=== PATIENT | female | born 1945 | race Caucasian/White ===

== ENCOUNTER 2020-10-08 13:50 | Inpatient (IN) ==
--- NOTE | 2020-10-08 14:13 | DR.GENAD ---
HPI Time Seen Time Seen by Provider: 10/08/20 14:13 PE Vital Signs Vitals: Temperature 98.6 F Pulse Rate [Left Radial] 92 Pulse Rate 91 Respiratory Rate 23 Blood Pressure [Left Arm] 100/73 Blood Pressure 100/73 O2 Sat by Pulse Oximetry 96 ROR Labs Reviewed Result Diagrams: 10/08/20 14:40 10/08/20 14:40 Laboratory: 10/08/20 15:03 Sacral Wound Gram Stain - Final WBC 19.3 X10^3/uL (3.6-10.0) H 10/08/20 14:40 RBC 4.96 X10^6/uL (3.5-5.4) 10/08/20 14:40 Hgb 13.4 g/dL (12.0-16.0) 10/08/20 14:40 Hct 41.3 % (36.0-47.0) 10/08/20 14:40 MCV 83.4 fL (80.0-100.0) 10/08/20 14:40 MCH 27.0 pg (27.0-34.0) 10/08/20 14:40 MCHC 32.4 g/dL (33.0-35.0) L 10/08/20 14:40 RDW 18.3 % (11.6-16.5) H 10/08/20 14:40 Plt Count 221 X10^3/uL (150.0-450.0) 10/08/20 14:40 MPV 7.5 fL (7.4-11.0) 10/08/20 14:40 Neut % (Auto) 89.6 % (42.0-75.0) H 10/08/20 14:40 Lymph % (Auto) 4.7 % (21.0-51.0) L 10/08/20 14:40 [place] % (Auto) 5.4 % (0.0-13.0) 10/08/20 14:40 Eos % (Auto) 0.1 % (0.9-2.9) L 10/08/20 14:40 Baso % (Auto) 0.2 % (0.2-1.0) 10/08/20 14:40 Neut # (Auto) 17.3 x10^3/uL (2.2-4.8) H 10/08/20 14:40 Lymph # (Auto) 0.9 X10^3/uL (1.3-2.9) L 10/08/20 14:40 [place] # (Auto) 1.0 x10^3/uL (0.3-0.8) H 10/08/20 14:40 Eos # (Auto) 0.0 x10^3/uL (0.0-0.2) 10/08/20 14:40 Baso # (Auto) 0.0 X10^3/uL (0.0-0.1) 10/08/20 14:40 Absolute Nucleated RBC 0.0 /100WBC 10/08/20 14:40 PT 25.8 SECONDS (11.8-14.3) 10/08/20 14:40 INR Target Range - 10/08/20 14:40 INR 2.49 (0.8-1.3) H 10/08/20 14:40 APTT 31.9 SECONDS (22.9-36.5) 10/08/20 14:40 PTT Comment - 10/08/20 14:40 Sodium 145 mmol/L (136-145) 10/08/20 14:40 Corrected Sodium TNP 10/08/20 14:40 Potassium 4.3 mmol/L (3.5-5.1) 10/08/20 14:40 Chloride 109 mmol/L (98-107) H 10/08/20 14:40 Carbon Dioxide 28.4 mmol/L (21-32) 10/08/20 14:40 BUN 38 mg/dL (7-18) H 10/08/20 14:40 Creatinine 0.97 mg/dL (0.55-1.02) 10/08/20 14:40 Est GFR (MDRD) Af Amer > 60 (>60) 10/08/20 14:40 Est GFR (MDRD) Non-Af 60 (>60) 10/08/20 14:40 Glucose 52 mg/dL (65-99) L 10/08/20 14:40 Lactic Acid 2.9 mmol/L (0.4-2.0) H 10/08/20 14:40 Calcium 9.0 mg/dL (8.5-10.1) 10/08/20 14:40 Corrected Calcium 11.0 mg/dL (8.5-10.1) H 10/08/20 14:40 Total Bilirubin 3.50 mg/dL (0.2-1.0) H 10/08/20 14:40 AST 92 Units/L (15-37) H 10/08/20 14:40 ALT 29 Units/L (12-78) 10/08/20 14:40 Alkaline Phosphatase 626 Units/L (46-116) H 10/08/20 14:40 Creatine Kinase 82 Units/L (26-192) 10/08/20 14:40 CK-MB (CK-2) 2.6 ng/mL (0-4.0) 10/08/20 14:40 CK/CKMB % Calc 3.2 % (<4) 10/08/20 14:40 Troponin I < 0.02 ng/mL (0-1.5) 10/08/20 14:40 Total Protein 6.5 g/dL (6.4-8.2) 10/08/20 14:40 Albumin 1.5 g/dL (3.4-5.0) L 10/08/20 14:40 Globulin 5.0 g/dL (2.5-4.5) H 10/08/20 14:40 Albumin/Globulin Ratio 0.3 Ratio (1.1-2.1) L 10/08/20 14:40 SARS-CoV-2 (PCR) Negative (NEGATIVE) 10/08/20 18:04 Influenza Type A (PCR) Negative (NEGATIVE) 10/08/20 18:04 Influenza Type B (PCR) Negative (NEGATIVE) 10/08/20 18:04 RSV (PCR) Negative (NEGATIVE) 10/08/20 18:04 Opioid Opioid Risk Tool Total: 0 Total Score Risk Category: Low Risk Copyright: Bernard LR predicting aberrant behaviors
[2020-10-08] MEDS ORDERED: NS 1000 ML 1,000 ML ONE ×2 (14:32→18:13)
--- NOTE | 2020-10-08 15:03 | RAD ---
HISTORYSOBSTUDYCHEST, 1 VIEWCOMPARISONNone availableTECHNIQUEChest radiographic imaging, AP portable projection, 1 imageFINDINGSNo cardiomegaly.No focal airspace disease.Moderate bilateral pleural effusions.No pneumothorax.No acute osseous abnormality.IMPRESSIONModerate bilateral pleural effusions, otherwise, unremarkable exam.Electronically signed by: Ousmane Rodrigues (Oct 08, 2020 15:00:36)
[2020-10-08 15:06] LABS: BASOPHILS % (AUTO) 0.2 % (0.2-1.0); EOSINOPHILS % (AUTO) 0.1 % (0.9-2.9); HEMATOCRIT 41.3 % (36.0-47.0); HEMOGLOBIN 13.4 g/dL (12.0-16.0); LYMPHOCYTES # (AUTO) 0.9 X10^3/uL (1.3-2.9); LYMPHOCYTES % (AUTO) 4.7 % (21.0-51.0); MEAN CORPUSCULAR HGB CONC 32.4 g/dL (33.0-35.0); MEAN CORPUSCULAR VOLUME 83.4 fL (80.0-100.0); MEAN PLATELET VOLUME 7.5 fL (7.4-11.0); MONOCYTES % (AUTO) 5.4 % (0.0-13.0); NEUTROPHILS # (AUTO) 17.3 x10^3/uL (2.2-4.8); NEUTROPHILS % (AUTO) 89.6 % (42.0-75.0); PLATELET COUNT 221 X10^3/uL (150.0-450.0); RED BLOOD COUNT 4.96 X10^6/uL (3.5-5.4); RED CELL DISTRIBUTION WIDTH 18.3 % (11.6-16.5); WHITE BLOOD COUNT 19.3 X10^3/uL (3.6-10.0)
[2020-10-08 15:23] LABS: LACTIC ACID 2.9 mmol/L (0.4-2.0)
[2020-10-08 15:27] LABS: ALANINE AMINOTRANSFERASE 29 Units/L (12-78); ALBUMIN 1.5 g/dL (3.4-5.0); ALKALINE PHOSPHATASE 626 Units/L (46-116); ASPARTATE AMINO TRANSFERASE 92 Units/L (15-37); BLOOD UREA NITROGEN 38 mg/dL (7-18); CARBON DIOXIDE 28.4 mmol/L (21-32); CHLORIDE 109 mmol/L (98-107); CKMB % 3.2 % (<4); CREATINE KINASE 82 Units/L (26-192); CREATINE KINASE MB 2.6 ng/mL (0-4.0); CREATININE 0.97 mg/dL (0.55-1.02); SODIUM 145 mmol/L (136-145); TOTAL PROTEIN 6.5 g/dL (6.4-8.2); TROPONIN I < 0.02 ng/mL (0-1.5); eGFR NON BLACK RACES 60 (>60)
[2020-10-08] MEDS ORDERED: NS 1000 ML 1,000 ML IV ONE (15:34)
[2020-10-08] MEDS ORDERED: ZOSYN VIAL 3.375 GRAMS 3.375 G in NS 100 ML IV + SPIKE MINIBAG* 100 ML IV ONE (18:00)
[2020-10-08] MEDS ORDERED: ZOSYN VIAL 3.375 GRAMS IV ONE (18:06)
[2020-10-08] MEDS ORDERED: NS 100 ML IV + SPIKE MINIBAG* 100 ML IV ONE (18:07)
[2020-10-08] MEDS: NS 1000 ML 1,000 ML IV SCH (18:24)
[2020-10-08] MEDS ORDERED: MORPHINE SULFATE INJ 4 MG IVP PRN (18:47)
[2020-10-08] MEDS ORDERED: ZOFRAN TAB 4 MG PO PRN (18:47)
[2020-10-08] MEDS ORDERED: VANCOMYCIN IV *PREMIX 1 G/200 ML BAG 1 G/200 ML PIGGYBACK IV SCH (18:54)
[2020-10-08 19:43] VITALS: BMI 23.3
[2020-10-08] MEDS ORDERED: D50W ABBOJECT SYR ONE (20:04)
[2020-10-08] MEDS ORDERED: D50W ABBOJECT SYR IV ONE (20:05)
[2020-10-08] MEDS: VENTOLIN or PROAIR HFA IN SCH (20:45)
[2020-10-08] MEDS: CORDARONE TAB 200 MG PO SCH (20:53)
[2020-10-08] MEDS: PREDNISONE TAB 20 MG PO SCH (20:53)
[2020-10-08] MEDS ORDERED: VANCOMYCIN IV *PREMIX 750 mg/150 ML BAG 750 MG/150 ML PIGGYBACK IV SCH (21:00)
[2020-10-08] MEDS ORDERED: ELIQUIS PO SCH (21:00)
[2020-10-08] MEDS: ALPHAGAN-P OPHTH 1 DOSE EACHEYE SCH (21:10)
[2020-10-09 04:56] LABS: BASOPHILS % (AUTO) 0.2 % (0.2-1.0); HEMATOCRIT 39.5 % (36.0-47.0); HEMOGLOBIN 12.8 g/dL (12.0-16.0); LYMPHOCYTES # (AUTO) 0.3 X10^3/uL (1.3-2.9); LYMPHOCYTES % (AUTO) 1.8 % (21.0-51.0); MEAN CORPUSCULAR HEMOGLOBIN 26.9 pg (27.0-34.0); MEAN CORPUSCULAR HGB CONC 32.3 g/dL (33.0-35.0); MEAN CORPUSCULAR VOLUME 83.5 fL (80.0-100.0); MEAN PLATELET VOLUME 7.5 fL (7.4-11.0); MONOCYTES # (AUTO) 0.6 x10^3/uL (0.3-0.8); MONOCYTES % (AUTO) 3.3 % (0.0-13.0); NEUTROPHILS # (AUTO) 16.6 x10^3/uL (2.2-4.8); NEUTROPHILS % (AUTO) 94.7 % (42.0-75.0); PLATELET COUNT 207 X10^3/uL (150.0-450.0); RED BLOOD COUNT 4.73 X10^6/uL (3.5-5.4); RED CELL DISTRIBUTION WIDTH 18.7 % (11.6-16.5); WHITE BLOOD COUNT 17.5 X10^3/uL (3.6-10.0)
[2020-10-09] MEDS: ZOSYN VIAL 3.375 GRAMS 3.375 G in NS 100 ML IV + SPIKE MINIBAG* 100 ML IV SCH ×3 (05:06→22:45)
[2020-10-09 05:09] LABS: ALANINE AMINOTRANSFERASE 28 Units/L (12-78); ALBUMIN 1.3 g/dL (3.4-5.0); ALKALINE PHOSPHATASE 654 Units/L (46-116); ASPARTATE AMINO TRANSFERASE 88 Units/L (15-37); BLOOD UREA NITROGEN 39 mg/dL (7-18); CALCIUM 8.5 mg/dL (8.5-10.1); CARBON DIOXIDE 29.3 mmol/L (21-32); CHLORIDE 109 mmol/L (98-107); CHOL/HDL RATIO 9.8 (0.0-5.0); CHOLESTEROL 128 mg/dL (0-200); COR CA(FOR HYPOALB) 10.7 mg/dL (8.5-10.1); COR NA(FOR HYPERGLY) 145 mmol/L (136-145); CREATININE 1.04 mg/dL (0.55-1.02); HDL CHOLESTEROL 13 mg/dL (40-60); SODIUM 144 mmol/L (136-145); TOTAL PROTEIN 5.9 g/dL (6.4-8.2); TRIGLYCERIDES 85 mg/dL (0-150); eGFR NON BLACK RACES 55 (>60)
[2020-10-09 05:10] LABS: LACTIC ACID 2.6 mmol/L (0.4-2.0)
[2020-10-09 05:32] LABS: BAND NEUTROPHILS % 5 % (0-10); PLATELET MORPHOLOGY COMMENT NORMAL (NORMAL)
[2020-10-09] MEDS: VANCOMYCIN IV *PREMIX 750 mg/150 ML BAG 750 MG/150 ML PIGGYBACK IV SCH ×2 (09:06→20:47)
[2020-10-09] MEDS: PREDNISONE TAB 20 MG PO SCH (09:07)
[2020-10-09] MEDS: CORDARONE TAB 200 MG PO SCH ×2 (09:07→20:53)
[2020-10-09] MEDS: NS 1000 ML 1,000 ML IV SCH (09:34)
[2020-10-09] MEDS: ALPHAGAN-P OPHTH 1 DOSE EACHEYE SCH ×2 (09:34→20:53)
--- NOTE | 2020-10-09 10:21 | RAD ---
HISTORYLBPSTUDYX-ray lumbar spine three viewsCOMPARISONNoneFINDINGSSlight thoracolumbar scoliosis. Minimal anterolisthesis of L4 on L5 is likely from arthritic facet changes. Moderate arthritic facet changes are seen throughout the lumbar spine, greatest at L5-S1. Mild endplate scalloping is seen of the superior endplates of L2-4 without anterior which deformity. Disc space narrowing is seen at T12-L1.IMPRESSIONMild scoliosis and moderate degenerative changes.Electronically signed by: Moises Acharya (Oct 09, 2020 10:18:52)
--- NOTE | 2020-10-09 10:25 | RAD ---
HISTORYLBPSTUDYSACRUM COCCYX x-ray three viewsCOMPARISONNoneFINDINGSNo abnormalities are seen with the SI joints. Tip of the coccyx is poorly visualized but appears slightly irregular. Nondisplaced fracture of the tip of the coccyx is not excluded. Osteomyelitis could possibly cause the appearance in the correct clinical setting. No suggestion of sacral fracture is seen. Phleboliths are seen in the pelvis. Prominent arthritic changes are seen in the right hip.IMPRESSIONProbable nondisplaced fracture of the tip of the coccyx. Less likely osteomyelitis changes cause this appearance.Electronically signed by: Moises Acharya (Oct 09, 2020 10:22:51)
[2020-10-09] MEDS ORDERED: MORPHINE SULFATE INJ 4 MG IVP PRN (10:46)
[2020-10-09] MEDS: VENTOLIN or PROAIR HFA IN SCH ×3 (11:45→17:15)
[2020-10-09] MEDS: ALBUMIN HUMAN 25%- 100 ML 100 ML IV SCH (12:00)
--- NOTE | 2020-10-09 12:44 | DR.H&P ---
H&P History & Physical for Day of: H&P Date: 10/09/20 Chief Complaint Chief Complaint: weakness, fall Allergies Allergies Allergy/AdvReac Type Severity Reaction Status Date / Time codeine Allergy Verified 10/08/20 19:50 History of Present Illness History of Present Illness: Ms. Abbott is a 75y/o female with a PMH of atrial fibrillation presented with generalized weakness, failure to thrive and immobility. Patient is currently living in a tent outside her house. She states she had a fall 2 weeks ago and since then has not walked. She reports pain in her lower back area. She has friends/family that have been helping with her ADLs. When she presented to the ER, she was found to be covered in urine and feces. She also did not eat anything for 2 days. Patient does not have a PCP. She sees a brand representative in [place]. She was found to have a sacral ulcer and some skin tears on admission. ER work up: - Labs: WBC 17.5 from 19 Hgb 12.8 BUN/Cr 39/1.04 Alk Phos 654 Lactic acid 2.6 from 2.9 AST 88 - INR 2.49 and now 2.55 - [id number], Resp panel neg - CXR: moderate bilateral pleural effusions, no infiltrate - Blood and wound cultures were collected and she was started on IV fluids, IV Vanc and Zosyn. Patient was also started on morphine for pain control but she refused. Patient is very adamant and particular about the medicines she wants to take. She also does not seem to be proactive about her condition and wants to just rest. During my exam, patient did not want to turn over for me to look at the sacral ulcer. She stated that the nurses will turn her over when they need to change the dressing. Plan: will order lumbar and sacrum XRs, continue gentle hydration. Continue IV antibiotics. Follow cultures. Resume home medications except Eliquis due to elevated INR. ECHO was ordered but patient refused as she had one done in August 2020 in [place]. Will obtain records. PT/OT as tolerated. Continue wound care. Monitor AM labs and imaging. Past Medical History Past Medical History: Coronary Artery Disease Additional Medical History: Atrial fibrillation Past Surgical History Surgical History: Other Social History Does patient currently use any type of tobacco product: No Have you used tobacco products in the last 12 months: No Type of Tobacco Use: None Does any household member use tobacco: No Alcohol Use: None Drug Use: None Prescription drug monitoring program results: PDMP reviewed and no concerns jan ntified Medications Home Medications: codeine Allergy (Verified 10/08/20 19:50) CONTINUE taking the following medications albuterol sulfate 1 inh INHALATION QID 10/08/20 [History] amiodarone 200 mg PO 2XW 10/08/20 [History] apixaban [Eliquis] 5 mg PO BID 10/08/20 [History] brimonidine [Alphagan P] 1 drp OPHTHALMIC (EYE) DAILY 10/08/20 [History] prednisone 20 mg PO QID 10/08/20 [History] Labs Result Diagrams: 10/09/20 04:29 10/09/20 04:29 Labs: 10/08/20 15:03 Sacral Wound Gram Stain - Final 10/08/20 15:03 Sacral Wound Culture - Preliminary Laboratory WBC 17.5 X10^3/uL (3.6-10.0) H 10/09/20 04:29 RBC 4.73 X10^6/uL (3.5-5.4) 10/09/20 04:29 Hgb 12.8 g/dL (12.0-16.0) 10/09/20 04:29 Hct 39.5 % (36.0-47.0) 10/09/20 04:29 MCV 83.5 fL (80.0-100.0) 10/09/20 04:29 MCH 26.9 pg (27.0-34.0) L 10/09/20 04:29 MCHC 32.3 g/dL (33.0-35.0) L 10/09/20 04:29 RDW 18.7 % (11.6-16.5) H 10/09/20 04:29 Plt Count 207 X10^3/uL (150.0-450.0) 10/09/20 04:29 Plt Count Comment Adequate (ADEQUATE) 10/09/20 04:29 MPV 7.5 fL (7.4-11.0) 10/09/20 04:29 Neut % (Auto) 94.7 % (42.0-75.0) H 10/09/20 04:29 Lymph % (Auto) 1.8 % (21.0-51.0) L 10/09/20 04:29 [place] % (Auto) 3.3 % (0.0-13.0) 10/09/20 04:29 Eos % (Auto) 0.0 % (0.9-2.9) L 10/09/20 04:29 Baso % (Auto) 0.2 % (0.2-1.0) 10/09/20 04:29 Neut # (Auto) 16.6 x10^3/uL (2.2-4.8) H 10/09/20 04:29 Lymph # (Auto) 0.3 X10^3/uL (1.3-2.9) L 10/09/20 04:29 [place] # (Auto) 0.6 x10^3/uL (0.3-0.8) 10/09/20 04:29 Eos # (Auto) 0.0 x10^3/uL (0.0-0.2) 10/09/20 04:29 Baso # (Auto) 0.0 X10^3/uL (0.0-0.1) 10/09/20 04:29 Absolute Nucleated RBC 0.0 /100WBC 10/09/20 04:29 Total Counted 100 10/09/20 04:29 Neutrophils % (Manual) 91 % (39-76) H 10/09/20 04:29 Band Neutrophils % 5 % (0-10) 10/09/20 04:29 Lymphocytes % (Manual) 1 % (13-43) L 10/09/20 04:29 Monocytes % (Manual) 3 % (4-9) L 10/09/20 04:29 Plt Morphology Comment Normal (NORMAL) 10/09/20 04:29 RBC Morphology Normal (NORMAL) 10/09/20 04:29 PT 26.2 SECONDS (11.8-14.3) 10/09/20 09:45 INR Target Range - 10/09/20 09:45 INR 2.55 (0.8-1.3) H 10/09/20 09:45 APTT 31.9 SECONDS (22.9-36.5) 10/08/20 14:40 PTT Comment - 10/08/20 14:40 Sodium 144 mmol/L (136-145) 10/09/20 04:29 Corrected Sodium 145 mmol/L (136-145) 10/09/20 04:29 Potassium 4.0 mmol/L (3.5-5.1) 10/09/20 04:29 Chloride 109 mmol/L (98-107) H 10/09/20 04:29 Carbon Dioxide 29.3 mmol/L (21-32) 10/09/20 04:29 BUN 39 mg/dL (7-18) H 10/09/20 04:29 Creatinine 1.04 mg/dL (0.55-1.02) H 10/09/20 04:29 Est GFR (MDRD) Af Amer > 60 (>60) 10/09/20 04:29 Est GFR (MDRD) Non-Af 55 (>60) L 10/09/20 04:29 Glucose 150 mg/dL (65-99) H 10/09/20 04:29 POC Glucose (mg/dL) 114 mg/dL (65-99) H 10/08/20 21:29 Lactic Acid 2.6 mmol/L (0.4-2.0) H 10/09/20 04:29 Calcium 8.5 mg/dL (8.5-10.1) 10/09/20 04:29 Corrected Calcium 10.7 mg/dL (8.5-10.1) H 10/09/20 04:29 Total Bilirubin 2.80 mg/dL (0.2-1.0) H 10/09/20 04:29 AST 88 Units/L (15-37) H 10/09/20 04:29 ALT 28 Units/L (12-78) 10/09/20 04:29 Alkaline Phosphatase 654 Units/L (46-116) H 10/09/20 04:29 Creatine Kinase 82 Units/L (26-192) 10/08/20 14:40 CK-MB (CK-2) 2.6 ng/mL (0-4.0) 10/08/20 14:40 CK/CKMB % Calc 3.2 % (<4) 10/08/20 14:40 Troponin I < 0.02 ng/mL (0-1.5) 10/08/20 14:40 Total Protein 5.9 g/dL (6.4-8.2) L 10/09/20 04:29 Albumin 1.3 g/dL (3.4-5.0) L 10/09/20 04:29 Globulin 4.6 g/dL (2.5-4.5) H 10/09/20 04:29 Albumin/Globulin Ratio 0.3 Ratio (1.1-2.1) L 10/09/20 04:29 Triglycerides 85 mg/dL (0-150) 10/09/20 04:29 Cholesterol 128 mg/dL (0-200) 10/09/20 04:29 LDL Cholesterol, Calc 98 mg/dL (0-100) 10/09/20 04:29 HDL Cholesterol 13 mg/dL (40-60) L 10/09/20 04:29 Cholesterol/HDL Ratio 9.8 (0.0-5.0) H 10/09/20 04:29 SARS-CoV-2 (PCR) Negative (NEGATIVE) 10/08/20 18:04 Influenza Type A (PCR) Negative (NEGATIVE) 10/08/20 18:04 Influenza Type B (PCR) Negative (NEGATIVE) 10/08/20 18:04 RSV (PCR) Negative (NEGATIVE) 10/08/20 18:04 Review of Systems Constitutional: Weakness and Malaise; denies Chills Eyes: No Symptoms Reported ENT: No Symptoms Reported Respiratory: No Symptoms Reported Cardiovascular: Edema Gastrointestinal: Diarrhea; denies Vomiting and Abdominal Pain Genitourinary: Incontinence Musculoskeletal: Back Pain Skin: Wound Neurological: No Symptoms Reported Physical Exam Vital Signs: Temperature 97.7 F Pulse Rate [Left Radial] 68 Pulse Rate 103 Respiratory Rate 20 Blood Pressure [Left Arm] 110/68 Blood Pressure 100/73 O2 Sat by Pulse Oximetry 99 Oriented: Normal Eyes: Normal Ear: Normal Nose: Normal Throat: Dry Respiratory: Diminished Throughout Cardiovascular: Normal and Edema Auscultation: Bowel Sounds: Normal Palpation: Normal Tenderness: Normal Skin: Decreased Turgur Musculoskeletal: Back:Lumbar, Back:Paraspinous and Pelvis Psychiatric: Normal Mood Description: Calm Affect: Normal Speech Pattern: Clear and Appropriate Assessment/Plan (1) Sepsis: Qualifiers: Sepsis acute organ dysfunction status: without acute organ dysfunction Sepsis type: sepsis due to unspecified organism Qualified Code(s): A41.9 - Sepsis, unspecified organism Status: Acute (2) Sacral decubitus ulcer: Qualifiers: Pressure injury stage: unspecified pressure injury stage Qualified Code(s): L89.159 - Pressure ulcer of sacral region, unspecified stage Status: Acute (3) Generalized weakness: Status: Acute (4) Failure to thrive: Qualifiers: Failure to thrive age range: in adult Qualified Code(s): R62.7 - Adult failure to thrive Status: Acute (5) Protein malnutrition: Status: Acute (6) Fall: Qualifiers: Encounter type: initial encounter Qualified Code(s): W19.XXXA - Unspecified fall, initial encounter Status: Acute (7) Poor hygiene: Status: Acute (8) Immobility: Status: Acute (9) Chronic back pain: Qualifiers: Back pain laterality: unspecified Back pain location: back pain in unspecified location Qualified Code(s): M54.9 - Dorsalgia, unspecified; G89.29 - Other chronic pain Status: Acute (10) Atrial fibrillation: Qualifiers: Atrial fibrillation type: unspecified chronic Qualified Code(s): I48.20 - Chronic atrial fibrillation, unspecified Status: Acute Review H&P Reviewed: Yes Patient was examined?: Yes
[2020-10-10] MEDS: ALPHAGAN-P OPHTH 1 DOSE EACHEYE SCH ×3 (01:27→23:53)
[2020-10-10] MEDS: NS 1000 ML 1,000 ML IV SCH (04:09)
[2020-10-10 05:25] LABS: LACTIC ACID 1.5 mmol/L (0.4-2.0)
[2020-10-10 05:27] LABS: BASOPHILS % (AUTO) 0.2 % (0.2-1.0); EOSINOPHILS # (AUTO) 0.1 x10^3/uL (0.0-0.2); EOSINOPHILS % (AUTO) 0.5 % (0.9-2.9); HEMATOCRIT 34.9 % (36.0-47.0); HEMOGLOBIN 11.3 g/dL (12.0-16.0); LYMPHOCYTES # (AUTO) 0.9 X10^3/uL (1.3-2.9); MEAN CORPUSCULAR HEMOGLOBIN 27.1 pg (27.0-34.0); MEAN CORPUSCULAR HGB CONC 32.4 g/dL (33.0-35.0); MEAN CORPUSCULAR VOLUME 83.7 fL (80.0-100.0); MEAN PLATELET VOLUME 7.3 fL (7.4-11.0); MONOCYTES # (AUTO) 1.1 x10^3/uL (0.3-0.8); MONOCYTES % (AUTO) 7.6 % (0.0-13.0); NEUTROPHILS # (AUTO) 12.9 x10^3/uL (2.2-4.8); NEUTROPHILS % (AUTO) 85.7 % (42.0-75.0); PLATELET COUNT 161 X10^3/uL (150.0-450.0); RED BLOOD COUNT 4.17 X10^6/uL (3.5-5.4); RED CELL DISTRIBUTION WIDTH 18.4 % (11.6-16.5); WHITE BLOOD COUNT 15.1 X10^3/uL (3.6-10.0)
[2020-10-10] MEDS: ZOSYN VIAL 3.375 GRAMS 3.375 G in NS 100 ML IV + SPIKE MINIBAG* 100 ML IV SCH ×3 (05:46→23:53)
[2020-10-10 05:55] LABS: ALANINE AMINOTRANSFERASE 21 Units/L (12-78); ALBUMIN 1.7 g/dL (3.4-5.0); ALKALINE PHOSPHATASE 478 Units/L (46-116); ASPARTATE AMINO TRANSFERASE 67 Units/L (15-37); BLOOD UREA NITROGEN 35 mg/dL (7-18); CALCIUM 8.1 mg/dL (8.5-10.1); CARBON DIOXIDE 30.3 mmol/L (21-32); CHLORIDE 112 mmol/L (98-107); COR CA(FOR HYPOALB) 9.9 mg/dL (8.5-10.1); CREATININE 0.92 mg/dL (0.55-1.02); SODIUM 146 mmol/L (136-145); TOTAL PROTEIN 5.3 g/dL (6.4-8.2); eGFR NON BLACK RACES > 60 (>60)
[2020-10-10] MEDS ORDERED: PHARMACY COMMENT IV ONE (08:30)
[2020-10-10 09:02] LABS: CREATININE 0.89 mg/dL (0.55-1.02); VANCOMYCIN,TROUGH 14.5 ug/mL (15-20)
[2020-10-10] MEDS: VENTOLIN or PROAIR HFA IN SCH ×4 (09:08→17:44)
[2020-10-10] MEDS ORDERED: DUONEB 0.5 MG/3 MG (3 mL) NEB SCH (09:30)
--- NOTE | 2020-10-10 09:33 | PCM.PROG ---
Progress Note Progress Note for Day of Date of Exam: 10/10/20 Subjective Subjective: Patient seen at bedside, no acute events overnight. Patient states she feels slightly better. She refused to work with PT/OT yesterday. Her sacrum XR showed nondisplaced fracture of the tip of the coccyx and also possible osteomyelitis changes but less likely. MRI was ordered but patient refused. Patient states she does not want any more imaging or tests done and would like to just have antibiotics. ECHO was also ordered yesterday but she refused. Records were obtained from [place]. Labs: WBC 15.1 Hgb 11.3 Plt 161 BUN/Cr: 35/0.92 INR 2.28 Lactic acid 1.5 Alk Phos 478 Total bili: 2.80 AST 67 Wound Cx: Gram neg rods Blood Cx pending Lumbar XR:Mild scoliosis and moderate degenerative changes. [place] XR: Probable nondisplaced fracture of the tip of the coccyx. Less likely osteomyelitis changes cause this appearance. ECHO: 07/10/20 40-45% LV systolic dysfunction 08/28/20 20-25%, Systolic function is severely decreased. Global hypokinises. Cavity is moderately dilated. Plan: patient continues to refuse MRI for further evaluation. Continue IV Vancomycin and Zosyn. Follow wound and blood cultures. Continue wound care. Patient not very cooperative during exam, unable to visualize sacral wounds properly. Dressing intact. Discussed with CM to have the nurse take pictures during next dressing change and can be placed in her chart. Stop IVF, patient seems to be eating better. Ensure added with each meal. Continue albumin. Monitor AM labs. PT/OT as tolerated. Ortho consult placed for Dr. Moseley likely needs outpatient follow up. PT recommended SNF. Past Medical Family Social History Past Med/Fam/Surg Hx: No changes since H&P Allergies: Allergies codeine Allergy (Verified 10/08/20 19:50) Review of Systems ROS: No change since H&P Vital Signs and I&O's Vital Signs: Temperature 97.3 F Pulse Rate [Left Radial] 95 Pulse Rate 98 Respiratory Rate 18 Blood Pressure [Left Arm] 151/72 Blood Pressure 100/73 O2 Sat by Pulse Oximetry 93 Intake and Output: Intake & Output 10/07/20 10/08/20 10/09/20 10/10/20 23:59 23:59 23:59 23:59 Intake Total 2175 / 2175 2388 / 8 975 / 975 Output Total 40 / 40 Balance 2134 / 21348 / 2388 975 / 975 Physical Exam Oriented: Normal Eyes: Normal Ear: Normal Nose: Normal Throat: Dry Respiratory: Generalized and Diminished Cardiovascular: Normal and Edema (chronic venous stasis and edema 2+ ) Auscultation: Bowel Sounds: Normal Tenderness: Normal Skin: Decreased Turgur, Tender and Wound (sacrul ulcer/wounds, dressing intact. Patient not cooperative during exam. ) Musculoskeletal: Back:Lumbar, Back:Paraspinous and Pelvis Psychiatric: Normal Mood Description: Calm Affect: Normal Speech Pattern: Clear and Appropriate Laboratory and Diagnostics Result Diagrams: 10/10/20 04:51 10/10/20 08:44 Labs: 10/08/20 15:03 Sacral Wound Gram Stain - Final 10/08/20 15:03 Sacral Wound Culture - Preliminary Laboratory WBC 15.1 X10^3/uL (3.6-10.0) H 10/10/20 04:51 RBC 4.17 X10^6/uL (3.5-5.4) 10/10/20 04:51 Hgb 11.3 g/dL (12.0-16.0) L 10/10/20 04:51 Hct 34.9 % (36.0-47.0) L 10/10/20 04:51 MCV 83.7 fL (80.0-100.0) 10/10/20 04:51 MCH 27.1 pg (27.0-34.0) 10/10/20 04:51 MCHC 32.4 g/dL (33.0-35.0) L 10/10/20 04:51 RDW 18.4 % (11.6-16.5) H 10/10/20 04:51 Plt Count 161 X10^3/uL (150.0-450.0) 10/10/20 04:51 Plt Count Comment Adequate (ADEQUATE) 10/09/20 04:29 MPV 7.3 fL (7.4-11.0) L 10/10/20 04:51 Neut % (Auto) 85.7 % (42.0-75.0) H 10/10/20 04:51 Lymph % (Auto) 6.0 % (21.0-51.0) L 10/10/20 04:51 Lane % (Auto) 7.6 % (0.0-13.0) 10/10/20 04:51 Eos % (Auto) 0.5 % (0.9-2.9) L 10/10/20 04:51 Baso % (Auto) 0.2 % (0.2-1.0) 10/10/20 04:51 Neut # (Auto) 12.9 x10^3/uL (2.2-4.8) H 10/10/20 04:51 Lymph # (Auto) 0.9 X10^3/uL (1.3-2.9) L 10/10/20 04:51 Lane # (Auto) 1.1 x10^3/uL (0.3-0.8) H 10/10/20 04:51 Eos # (Auto) 0.1 x10^3/uL (0.0-0.2) 10/10/20 04:51 Baso # (Auto) 0.0 X10^3/uL (0.0-0.1) 10/10/20 04:51 Absolute Nucleated RBC 0.0 /100WBC 10/10/20 04:51 Total Counted 100 10/09/20 04:29 Neutrophils % (Manual) 91 % (39-76) H 10/09/20 04:29 Band Neutrophils % 5 % (0-10) 10/09/20 04:29 Lymphocytes % (Manual) 1 % (13-43) L 10/09/20 04:29 Monocytes % (Manual) 3 % (4-9) L 10/09/20 04:29 Plt Morphology Comment Normal (NORMAL) 10/09/20 04:29 RBC Morphology Normal (NORMAL) 10/09/20 04:29 PT 24.0 SECONDS (11.8-14.3) 10/10/20 04:51 INR Target Range - 10/10/20 04:51 INR 2.28 (0.8-1.3) H 10/10/20 04:51 APTT 31.9 SECONDS (22.9-36.5) 10/08/20 14:40 PTT Comment - 10/08/20 14:40 Sodium 146 mmol/L (136-145) H 10/10/20 04:51 Corrected Sodium TNP 10/10/20 04:51 Potassium 3.8 mmol/L (3.5-5.1) 10/10/20 04:51 Chloride 112 mmol/L (98-107) H 10/10/20 04:51 Carbon Dioxide 30.3 mmol/L (21-32) 10/10/20 04:51 BUN 35 mg/dL (7-18) H 10/10/20 04:51 Creatinine 0.89 mg/dL (0.55-1.02) 10/10/20 08:44 Est GFR (MDRD) Af Amer > 60 (>60) 10/10/20 04:51 Est GFR (MDRD) Non-Af > 60 (>60) 10/10/20 04:51 Glucose 80 mg/dL (65-99) 10/10/20 04:51 POC Glucose (mg/dL) 75 mg/dL (65-99) 10/10/20 05:49 Lactic Acid 1.5 mmol/L (0.4-2.0) 10/10/20 04:51 Calcium 8.1 mg/dL (8.5-10.1) L 10/10/20 04:51 Corrected Calcium 9.9 mg/dL (8.5-10.1) 10/10/20 04:51 Total Bilirubin 2.80 mg/dL (0.2-1.0) H 10/10/20 04:51 AST 67 Units/L (15-37) H 10/10/20 04:51 ALT 21 Units/L (12-78) 10/10/20 04:51 Alkaline Phosphatase 478 Units/L (46-116) H 10/10/20 04:51 Creatine Kinase 82 Units/L (26-192) 10/08/20 14:40 CK-MB (CK-2) 2.6 ng/mL (0-4.0) 10/08/20 14:40 CK/CKMB % Calc 3.2 % (<4) 10/08/20 14:40 Troponin I < 0.02 ng/mL (0-1.5) 10/08/20 14:40 Total Protein 5.3 g/dL (6.4-8.2) L 10/10/20 04:51 Albumin 1.7 g/dL (3.4-5.0) L 10/10/20 04:51 Globulin 3.6 g/dL (2.5-4.5) 10/10/20 04:51 Albumin/Globulin Ratio 0.5 Ratio (1.1-2.1) L 10/10/20 04:51 Triglycerides 85 mg/dL (0-150) 10/09/20 04:29 Cholesterol 128 mg/dL (0-200) 10/09/20 04:29 LDL Cholesterol, Calc 98 mg/dL (0-100) 10/09/20 04:29 HDL Cholesterol 13 mg/dL (40-60) L 10/09/20 04:29 Cholesterol/HDL Ratio 9.8 (0.0-5.0) H 10/09/20 04:29 Vancomycin Trough 14.5 ug/mL (15-20) L 10/10/20 08:44 SARS-CoV-2 (PCR) Negative (NEGATIVE) 10/08/20 18:04 Influenza Type A (PCR) Negative (NEGATIVE) 10/08/20 18:04 Influenza Type B (PCR) Negative (NEGATIVE) 10/08/20 18:04 RSV (PCR) Negative (NEGATIVE) 10/08/20 18:04 Plan (1) Fractured coccyx: Status: Acute Qualifiers: Encounter type: initial encounter Fracture type: closed Qualified Code(s): S32.2XXA - Fracture of coccyx, initial encounter for closed fracture (2) Sepsis: Status: Acute Qualifiers: Sepsis acute organ dysfunction status: without acute organ dysfunction Sepsis type: sepsis due to unspecified organism Qualified Code(s): A41.9 - Sepsis, unspecified organism (3) Sacral decubitus ulcer: Status: Acute Qualifiers: Pressure injury stage: unspecified pressure injury stage Qualified Code(s): L89.159 - Pressure ulcer of sacral region, unspecified stage (4) Generalized weakness: Status: Acute (5) Failure to thrive: Status: Acute Qualifiers: Failure to thrive age range: in adult Qualified Code(s): R62.7 - Adult failure to thrive (6) Protein malnutrition: Status: Acute (7) Fall: Status: Acute Qualifiers: Encounter type: initial encounter Qualified Code(s): W19.XXXA - Unspecified fall, initial encounter (8) Poor hygiene: Status: Acute (9) Immobility: Status: Acute (10) Chronic back pain: Status: Acute Qualifiers: Back pain laterality: unspecified Back pain location: back pain in unspecified location Qualified Code(s): M54.9 - Dorsalgia, unspecified; G89.29 - Other chronic pain (11) Atrial fibrillation: Status: Acute Qualifiers: Atrial fibrillation type: unspecified chronic Qualified Code(s): I48.20 - Chronic atrial fibrillation, unspecified
[2020-10-10] MEDS: CORDARONE TAB 200 MG PO SCH ×2 (10:00→20:08)
[2020-10-10] MEDS: ALBUMIN HUMAN 25%- 100 ML 100 ML IV SCH (10:00)
[2020-10-10] MEDS: VANCOMYCIN IV *PREMIX 750 mg/150 ML BAG 750 MG/150 ML PIGGYBACK IV SCH ×2 (10:00→22:00)
[2020-10-10] MEDS ORDERED: DUONEB 0.5 MG/3 MG (3 mL) NEB ONE (11:40)
[2020-10-10] MEDS: DUONEB 0.5 MG/3 MG (3 mL) NEB SCH ×3 (11:50→20:10)
--- NOTE | 2020-10-10 12:19 | RAD ---
HISTORYPOSSIBLE ASPIRATIONSTUDYCHEST, 1 [id number]/06/2021.TECHNIQUEAP view of the chestFINDINGSCardiac silhouette is mildly enlarged. There are diffuse bilateral airspace opacities. Small pleural effusions. No pneumothorax. Soft tissue attenuation limits evaluation.IMPRESSIONCardiomegaly with diffuse bilateral airspace opacities may represent pulmonary edema or pneumonia. Small bilateral pleural effusions.Electronically signed by: Blu Morgan (Oct 10, 2020 12:17:34)
[2020-10-10] MEDS ORDERED: VENTOLIN or PROAIR HFA IN PRN (17:57)
[2020-10-11] MEDS: ZOSYN VIAL 3.375 GRAMS 3.375 G in NS 100 ML IV + SPIKE MINIBAG* 100 ML IV SCH ×2 (05:32→15:00)
[2020-10-11 06:11] LABS: BASOPHILS % (AUTO) 0.2 % (0.2-1.0); EOSINOPHILS # (AUTO) 0.1 x10^3/uL (0.0-0.2); EOSINOPHILS % (AUTO) 0.4 % (0.9-2.9); HEMATOCRIT 36.6 % (36.0-47.0); HEMOGLOBIN 11.7 g/dL (12.0-16.0); LYMPHOCYTES # (AUTO) 0.6 X10^3/uL (1.3-2.9); LYMPHOCYTES % (AUTO) 4.1 % (21.0-51.0); MEAN CORPUSCULAR HEMOGLOBIN 26.8 pg (27.0-34.0); MEAN CORPUSCULAR HGB CONC 31.9 g/dL (33.0-35.0); MEAN CORPUSCULAR VOLUME 83.9 fL (80.0-100.0); MEAN PLATELET VOLUME 7.4 fL (7.4-11.0); MONOCYTES # (AUTO) 0.9 x10^3/uL (0.3-0.8); NEUTROPHILS # (AUTO) 13.6 x10^3/uL (2.2-4.8); NEUTROPHILS % (AUTO) 89.3 % (42.0-75.0); PLATELET COUNT 156 X10^3/uL (150.0-450.0); RED BLOOD COUNT 4.37 X10^6/uL (3.5-5.4); RED CELL DISTRIBUTION WIDTH 18.7 % (11.6-16.5); WHITE BLOOD COUNT 15.3 X10^3/uL (3.6-10.0)
[2020-10-11 06:22] LABS: ALANINE AMINOTRANSFERASE 26 Units/L (12-78); ALKALINE PHOSPHATASE 577 Units/L (46-116); ASPARTATE AMINO TRANSFERASE 88 Units/L (15-37); BLOOD UREA NITROGEN 28 mg/dL (7-18); CALCIUM 8.3 mg/dL (8.5-10.1); CHLORIDE 112 mmol/L (98-107); COR CA(FOR HYPOALB) 9.9 mg/dL (8.5-10.1); CREATININE 0.81 mg/dL (0.55-1.02); SODIUM 147 mmol/L (136-145); TOTAL PROTEIN 5.7 g/dL (6.4-8.2); eGFR NON BLACK RACES > 60 (>60)
[2020-10-11] MEDS: NAPROSYN PO PRN (07:35)
[2020-10-11] MEDS: DUONEB 0.5 MG/3 MG (3 mL) NEB SCH ×4 (08:05→21:11)
[2020-10-11] MEDS: CORDARONE TAB 200 MG PO SCH ×2 (09:00→21:19)
--- NOTE | 2020-10-11 09:21 | PCM.PROG ---
Progress Note Progress Note for Day of Date of Exam: 10/11/20 Subjective Subjective: Patient seen at bedside, no acute events overnight. Patient states she slept well. She did refuse abdominal U/S this morning and also refused MRI yesterday. Patient states she had an ultrasound in [place] and does not want to do it again. She states she was told she has some liver problem maybe cirrhosis. She is agreeable to have the MRI this morning to evaluate her wounds and fracture. Yesterday while getting a breathing treatment, she did aspirate and turned blue. Code blue was called, patient did not lose pulse and was bagged for O2 and then was stable. She is currently on 3L NC. She had stat CXR which showed mild effusions and pulmonary opacities. She refused to work with PT/OT again. Labs: WBC 15.3 Hgb 11.7 Plt 161 BUN/Cr: 28/0.81 Alk Phos 577 Total bili: 2.80 AST 88 Wound Cx: Gram neg rods Blood Cx Gram + cocci x 2 Lumbar XR:Mild scoliosis and moderate degenerative changes. [place] XR: Probable nondisplaced fracture of the tip of the coccyx. Less likely osteomyelitis changes cause this appearance. ECHO: 07/10/20 40-45% LV systolic dysfunction 08/28/20 20-25%, Systolic function is severely decreased. Global hypokinises. Cavity is moderately dilated. Plan: Patient continues to be non-compliant with treatment. Willing to have the MRI done this morning. Would like something for anxiety prior to going, will add ativan 1mg prn. Continue IV vancomycin and zosyn. Follow final wound and blood cultures. Repeat blood cultures. Continue wound care and dressing change. PT/OT as tolerated. CXR ordered today, will start lasix 20 mg IV BID. Monitor UOP. Pat ient refused tanner. Daily weights, 1500 cc fluid intake. Continue nebs and IS as tolerated. Patient unclear on what medications she takes. Will get med list from her pharmacy, mostly uses [facility] in [place]. Monitor AM labs and imaging. Time spent for clinical assessment, physical exam, reviewing labs/imaging, decision making and documentation greater than 75 mins. Past Medical Family Social History Past Med/Fam/Surg Hx: No changes since H&P Allergies: Allergies codeine Allergy (Verified 10/08/20 19:50) Review of Systems ROS: No change since H&P Vital Signs and I&O's Vital Signs: Temperature 98.2 F Pulse Rate [Left Radial] 98 Pulse Rate 79 Respiratory Rate 20 Blood Pressure [Left Arm] 108/65 Blood Pressure 100/73 O2 Sat by Pulse Oximetry 96 Intake and Output: Intake & Output 10/08/20 10/09/20 10/10/20 10/11/20 23:59 23:59 23:59 23:59 Intake Total 2175 / 2175 2388 / 2388 1335 / 1335 120 / 120 Output Total 40 / 40 Balance 2135 / 2135 2388 / 2388 1335 / 1335 120 / 120 Physical Exam Oriented: Normal Eyes: Normal Ear: Normal Nose: Normal Throat: Dry Respiratory: Generalized and Diminished Cardiovascular: Normal and Edema (chronic venous stasis and edema 2+ ) Auscultation: Bowel Sounds: Normal Tenderness: Normal Skin: Decreased Turgur, Tender and Wound (sacrul ulcer/wounds, dressing intact. Patient not cooperative during exam. ) Musculoskeletal: Back:Lumbar, Back:Paraspinous and Pelvis Psychiatric: Normal Mood Description: Calm Affect: Normal Speech Pattern: Clear and Appropriate Laboratory and Diagnostics Result Diagrams: 10/11/20 05:38 10/11/20 05:38 Labs: 10/08/20 15:03 Sacral Wound Gram Stain - Final 10/08/20 15:03 Sacral Wound Culture - Final Providencia Stuartii Klebsiella Pneumoniae Proteus Mirabilis 10/08/20 14:50 Blood Blood Culture - Preliminary 10/08/20 14:40 Blood Blood Culture - Preliminary Laboratory WBC 15.3 X10^3/uL (3.6-10.0) H 10/11/20 05:38 RBC 4.37 X10^6/uL (3.5-5.4) 10/11/20 05:38 Hgb 11.7 g/dL (12.0-16.0) L 10/11/20 05:38 Hct 36.6 % (36.0-47.0) 10/11/20 05:38 MCV 83.9 fL (80.0-100.0) 10/11/20 05:38 MCH 26.8 pg (27.0-34.0) L 10/11/20 05:38 MCHC 31.9 g/dL (33.0-35.0) L 10/11/20 05:38 RDW 18.7 % (11.6-16.5) H 10/11/20 05:38 Plt Count 156 X10^3/uL (150.0-450.0) 10/11/20 05:38 Plt Count Comment Adequate (ADEQUATE) 10/09/20 04:29 MPV 7.4 fL (7.4-11.0) 10/11/20 05:38 Neut % (Auto) 89.3 % (42.0-75.0) H 10/11/20 05:38 Lymph % (Auto) 4.1 % (21.0-51.0) L 10/11/20 05:38 [place] % (Auto) 6.0 % (0.0-13.0) 10/11/20 05:38 Eos % (Auto) 0.4 % (0.9-2.9) L 10/11/20 05:38 Baso % (Auto) 0.2 % (0.2-1.0) 10/11/20 05:38 Neut # (Auto) 13.6 x10^3/uL (2.2-4.8) H 10/11/20 05:38 Lymph # (Auto) 0.6 X10^3/uL (1.3-2.9) L 10/11/20 05:38 [place] # (Auto) 0.9 x10^3/uL (0.3-0.8) H 10/11/20 05:38 Eos # (Auto) 0.1 x10^3/uL (0.0-0.2) 10/11/20 05:38 Baso # (Auto) 0.0 X10^3/uL (0.0-0.1) 10/11/20 05:38 Absolute Nucleated RBC 0.0 /100WBC 10/11/20 05:38 Total Counted 100 10/09/20 04:29 Neutrophils % (Manual) 91 % (39-76) H 10/09/20 04:29 Band Neutrophils % 5 % (0-10) 10/09/20 04:29 Lymphocytes % (Manual) 1 % (13-43) L 10/09/20 04:29 Monocytes % (Manual) 3 % (4-9) L 10/09/20 04:29 Plt Morphology Comment Normal (NORMAL) 10/09/20 04:29 RBC Morphology Normal (NORMAL) 10/09/20 04:29 PT 24.0 SECONDS (11.8-14.3) 10/10/20 04:51 INR Target Range - 10/10/20 04:51 INR 2.28 (0.8-1.3) H 10/10/20 04:51 APTT 31.9 SECONDS (22.9-36.5) 10/08/20 14:40 PTT Comment - 10/08/20 14:40 Sodium 147 mmol/L (136-145) H 10/11/20 05:38 Corrected Sodium TNP 10/11/20 05:38 Potassium 3.6 mmol/L (3.5-5.1) 10/11/20 05:38 Chloride 112 mmol/L (98-107) H 10/11/20 05:38 Carbon Dioxide 27.0 mmol/L (21-32) 10/11/20 05:38 BUN 28 mg/dL (7-18) H 10/11/20 05:38 Creatinine 0.81 mg/dL (0.55-1.02) 10/11/20 05:38 Est GFR (MDRD) Af Amer > 60 (>60) 10/11/20 05:38 Est GFR (MDRD) Non-Af > 60 (>60) 10/11/20 05:38 Glucose 90 mg/dL (65-99) 10/11/20 05:38 POC Glucose (mg/dL) 75 mg/dL (65-99) 10/10/20 05:49 Lactic Acid 1.5 mmol/L (0.4-2.0) 10/10/20 04:51 Calcium 8.3 mg/dL (8.5-10.1) L 10/11/20 05:38 Corrected Calcium 9.9 mg/dL (8.5-10.1) 10/11/20 05:38 Total Bilirubin 2.50 mg/dL (0.2-1.0) H 10/11/20 05:38 AST 88 Units/L (15-37) H 10/11/20 05:38 ALT 26 Units/L (12-78) 10/11/20 05:38 Alkaline Phosphatase 577 Units/L (46-116) H 10/11/20 05:38 Creatine Kinase 82 Units/L (26-192) 10/08/20 14:40 CK-MB (CK-2) 2.6 ng/mL (0-4.0) 10/08/20 14:40 CK/CKMB % Calc 3.2 % (<4) 10/08/20 14:40 Troponin I < 0.02 ng/mL (0-1.5) 10/08/20 14:40 B-Natriuretic Peptide 572 pg/mL (0-79) H* 10/11/20 05:38 Total Protein 5.7 g/dL (6.4-8.2) L 10/11/20 05:38 Albumin 2.0 g/dL (3.4-5.0) L 10/11/20 05:38 Globulin 3.7 g/dL (2.5-4.5) 10/11/20 05:38 Albumin/Globulin Ratio 0.5 Ratio (1.1-2.1) L 10/11/20 05:38 Triglycerides 85 mg/dL (0-150) 10/09/20 04:29 Cholesterol 128 mg/dL (0-200) 10/09/20 04:29 LDL Cholesterol, Calc 98 mg/dL (0-100) 10/09/20 04:29 HDL Cholesterol 13 mg/dL (40-60) L 10/09/20 04:29 Cholesterol/HDL Ratio 9.8 (0.0-5.0) H 10/09/20 04:29 Vancomycin Trough 14.5 ug/mL (15-20) L 10/10/20 08:44 SARS-CoV-2 (PCR) Negative (NEGATIVE) 10/08/20 18:04 Influenza Type A (PCR) Negative (NEGATIVE) 10/08/20 18:04 Influenza Type B (PCR) Negative (NEGATIVE) 10/08/20 18:04 RSV (PCR) Negative (NEGATIVE) 10/08/20 18:04 Plan (1) Acute exacerbation of CHF (congestive heart failure): Status: Acute Qualifiers: Heart failure type: combined systolic and diastolic Qualified Code(s): I50.43 - Acute on chronic combined systolic (congestive) and diastolic (congestive) heart failure (2) Gram-positive bacteremia: Status: Acute (3) Fractured coccyx: Status: Acute Qualifiers: Encounter type: initial encounter Fracture type: closed Qualified Code(s): S32.2XXA - Fracture of coccyx, initial encounter for closed fracture (4) Sepsis: Status: Acute Qualifiers: Sepsis acute organ dysfunction status: without acute organ dysfunction Sepsis type: sepsis due to unspecified organism Qualified Code(s): A41.9 - Sepsis, unspecified organism (5) Sacral decubitus ulcer: Status: Acute Qualifiers: Pressure injury stage: unspecified pressure injury stage Qualified Code(s): L89.159 - Pressure ulcer of sacral region, unspecified stage (6) Generalized weakness: Status: Acute (7) Failure to thrive: Status: Acute Qualifiers: Failure to thrive age range: in adult Qualified Code(s): R62.7 - Adult failure to thrive (8) Protein malnutrition: Status: Acute (9) Fall: Status: Acute Qualifiers: Encounter type: initial encounter Qualified Code(s): W19.XXXA - Unspecified fall, initial encounter (10) Poor hygiene: Status: Acute (11) Immobility: Status: Acute (12) Chronic back pain: Status: Acute Qualifiers: Back pain laterality: unspecified Back pain location: back pain in unspecified location Qualified Code(s): M54.9 - Dorsalgia, unspecified; G89.29 - Other chronic pain (13) Atrial fibrillation: Status: Acute Qualifiers: Atrial fibrillation type: unspecified chronic Qualified Code(s): I48.20 - Chronic atrial fibrillation, unspecified (14) Dilated cardiomyopathy: Status: Acute (15) Transaminitis: Status: Acute
[2020-10-11] MEDS: ATIVAN INJ 2 MG VIAL IVP PRN (09:26)
[2020-10-11] MEDS: ALPHAGAN-P OPHTH 1 DOSE EACHEYE SCH ×2 (10:24→21:20)
[2020-10-11] MEDS: LASIX IVP SCH ×2 (11:15→17:45)
[2020-10-11] MEDS: ELIQUIS PO SCH ×2 (11:15→21:11)
[2020-10-11] MEDS: VANCOMYCIN IV *PREMIX 750 mg/150 ML BAG 750 MG/150 ML PIGGYBACK IV SCH ×2 (11:30→21:12)
--- NOTE | 2020-10-11 13:27 | RAD ---
CHEST, 1 VIEWHISTORY:HYPOXIA, SOBStudy: Single view of the chest.Comparison:October 10, 2020Findings:Cardiomegaly and pulmonary vascular congestion. Probable small bilateral effusions with adjacent atelectasis. Findings appear slightly worsened when compared to prior. Osseous structures demonstrate no acute abnormality.IMPRESSION:1. Slight worsening of cardiomegaly, pulmonary edema and bilateral effusions.Electronically signed by: TANNER WOO (Oct 11, 2020 13:24:56)
--- NOTE | 2020-10-11 13:57 | MRI ---
HISTORYRULE OUT OSTEOMYELITISSTUDYPELVIS W W/O CONCOMPARISONPlain films dated 10/09/2020TECHNIQUEaxial T2 fat sat and coronal proton density fat sat, coronal STIR, coronal T1 was performed through the sacrum and pelvis. No contrast was administered. Patient was uncooperative. Study degraded is by motion artifact.FINDINGSThere is large ascites in the lower pelvis, small uterus is present. The urinary bladder demonstrate no dominant abnormalities. There is diffuse edema of the pelvic muscles as well as the soft tissue. There is no evidence of bone marrow edema in the coccyx and sacrum to suggest fracture or osteomyelitis. No fracture line is clearly seen. no evidence of drainable collections. There is minimal edema in the inferior aspect of the coccyx.There is bilateral arthritic changes of the hip with subchondral cyst formation in the right and hyper trophic changes with mild asymmetry likely osteoarthrosis.IMPRESSIONLimited by motion. Large ascites in the lower pelvisDiffuse edema of the muscular plane and the subcutaneous soft tissues of the pelvis could be related to diffuse edema as on hypoproteinemia or rhabdomyolysis, clinical correlation recommended.No significant edema of the sacrum and coccyx to suggest fracture or osteomyelitis no drainable collections.Electronically signed by: Lourdes Ceja (Oct 11, 2020 13:54:34)
[2020-10-11] MEDS ORDERED: NS 100 ML IV 100 ML ONE ×2 (15:11→21:47)
[2020-10-11] MEDS ORDERED: PHARMACY COMMENT IV SCH (20:30)
[2020-10-12 06:57] LABS: BASOPHILS % (AUTO) 0.1 % (0.2-1.0); HEMATOCRIT 36.9 % (36.0-47.0); HEMOGLOBIN 11.8 g/dL (12.0-16.0); LYMPHOCYTES # (AUTO) 0.5 X10^3/uL (1.3-2.9); LYMPHOCYTES % (AUTO) 2.9 % (21.0-51.0); MEAN CORPUSCULAR HEMOGLOBIN 26.9 pg (27.0-34.0); MEAN CORPUSCULAR HGB CONC 32.1 g/dL (33.0-35.0); MEAN CORPUSCULAR VOLUME 83.8 fL (80.0-100.0); MEAN PLATELET VOLUME 7.4 fL (7.4-11.0); MONOCYTES # (AUTO) 0.7 x10^3/uL (0.3-0.8); NEUTROPHILS # (AUTO) 15.3 x10^3/uL (2.2-4.8); PLATELET COUNT 147 X10^3/uL (150.0-450.0); RED CELL DISTRIBUTION WIDTH 18.7 % (11.6-16.5); WHITE BLOOD COUNT 16.5 X10^3/uL (3.6-10.0)
[2020-10-12 07:09] LABS: ALANINE AMINOTRANSFERASE 24 Units/L (12-78); ALBUMIN 2.1 g/dL (3.4-5.0); ALKALINE PHOSPHATASE 472 Units/L (46-116); ASPARTATE AMINO TRANSFERASE 69 Units/L (15-37); BLOOD UREA NITROGEN 23 mg/dL (7-18); CALCIUM 7.9 mg/dL (8.5-10.1); CARBON DIOXIDE 29.3 mmol/L (21-32); CHLORIDE 110 mmol/L (98-107); COR CA(FOR HYPOALB) 9.4 mg/dL (8.5-10.1); CREATININE 0.83 mg/dL (0.55-1.02); SODIUM 147 mmol/L (136-145); TOTAL PROTEIN 5.6 g/dL (6.4-8.2); eGFR NON BLACK RACES > 60 (>60)
[2020-10-12] MEDS: ZOSYN VIAL 3.375 GRAMS 3.375 G in NS 100 ML IV + SPIKE MINIBAG* 100 ML IV SCH ×4 (07:15→22:00)
[2020-10-12 07:27] LABS: BAND NEUTROPHILS % 5 % (0-10)
[2020-10-12 07:28] LABS: ANISOCYTOSIS SLIGHT; PLATELET MORPHOLOGY COMMENT NORMAL (NORMAL); TARGET CELLS SLIGHT
[2020-10-12] MEDS ORDERED: K-DUR TAB 20 MEQ PO PRN (07:53)
[2020-10-12] MEDS ORDERED: POTASSIUM CHL 40 MEQ/NS 0.45% 500 ML IV PRN (07:53)
[2020-10-12] MEDS ORDERED: K-RIDER 10 MEQ/NS 100 ML 10 MEQ/100 ML BAG IV PRN (07:53)
[2020-10-12] MEDS ORDERED: POTASSIUM CHLORIDE LIQ 20 MEQ UDC PO PRN (07:53)
[2020-10-12] MEDS ORDERED: MICRO K EXTEN CAP 10 MEQ PO PRN (07:53)
[2020-10-12] MEDS ORDERED: KLOR-CON PO PRN (07:53)
[2020-10-12] MEDS ORDERED: POTASSIUM CHL 60 MEQ/NS 0.45% 500 ML IV PRN (07:53)
[2020-10-12 08:48] LABS: CREATININE 0.84 mg/dL (0.55-1.02); VANCOMYCIN,TROUGH 19.7 ug/mL (15-20)
[2020-10-12] MEDS: CORDARONE TAB 200 MG PO SCH ×2 (09:20→20:57)
[2020-10-12] MEDS: ALPHAGAN-P OPHTH 1 DOSE EACHEYE SCH ×2 (09:20→21:06)
[2020-10-12] MEDS: ELIQUIS PO SCH ×2 (09:21→20:56)
[2020-10-12] MEDS: LASIX IVP SCH ×3 (09:22→18:29)
[2020-10-12] MEDS: VANCOMYCIN IV *PREMIX 750 mg/150 ML BAG 750 MG/150 ML PIGGYBACK IV SCH ×2 (09:23→21:01)
[2020-10-12] MEDS: DUONEB 0.5 MG/3 MG (3 mL) NEB SCH ×4 (09:33→20:35)
[2020-10-12] MEDS: NAPROSYN PO PRN (17:38)
--- NOTE | 2020-10-12 18:15 | PCM.PROG ---
Progress Note - Progress Note for Day of Date of Exam: 10/12/20 - Subjective Subjective: IS A 75 YEAR OLD PATIENT OF . SHE IS BEING TREATED FOR ACUTE CHF EXACERBATION, SEPSIS, SACRAL PRESSURE ULCER, COCCYX FRACTURE, FAILURE TO THRIVE, AND FREQUENT FALLS. SHE HAS A PMH OF CAD, A-FIB, CIRRHOSIS OF LIVER. SHE APPARENTLY HAS POOR LIVING CONDITIONS AND IS UNABLE TO TAKE CARE OF HERSELF. STAFF REPORTS THAT SHE HAS BEEN REFUSING TO WORK WITH PHYSICAL THERAPY. SHE HAS ALSO REFUSED ECHO AND ABDOMEN ULTRASOUND THAT WERE ORDERED BY . TODAY, SHE IS ALERT AND ORIENTED, LYING IN BED ON MORNING ROUNDS. SHE DENIES COMPLAINTS. HEART IS REGULAR IN RATE AND RHYTHM. BILATERAL LUNGS NOTED WITH DIMINISHED LUNG SOUNDS THROUGHOUT. ABDOMEN IS ORUN,D SOFT, AND NON-TENDER WITH NORMAL BOWEL SOUNDS NOTED IN ALL QUADRANTS. THERE IS 2+ PITTING EDEMA NOTED TO HER LOWER EXTREMITIES. DRESSING NOTED TO SACRAL WOUND IS DRY AND INTACT. VITALS THIS MORNING ARE: 97.4-86-20-96%-132/64. LABS WERE OBTAINED. ABNORMAL LAB VALUES INCLUDE THE FOLLOWING: WBC 16.5, HGB 11.8, PLT COUNT 147, SODIUM 147, POTASSIUM 3.3, CHLORIDE 110, BUN 23, CALCIUM 7.9, TOTAL BILI 3.60, AST 69, ALK PHOS 472, TOTAL PROTEIN 5.6, ALBUMIN 2.1. WOUNDS ARE POSITIVE FOR PROVIDENCIA STUARTII, KLEBSIELLA PNEUMONIAE, AND PROTEUS MIRABILIS. BLOOD CULTURES ARE POSITIVE FOR STREPTOCOCCUS DYSGALACTIAE. BACTERIA IS SENSITIVE TO THE ANTIBIOTICS THAT SHE IS CURRENTLY ON. SHE IS CURRENTLY VANCOMYCIN 750MG IV BID, ZOSYN 3.375G IV TID, POTASSIUM PROTOCOL, LASIX 20MG IV BID, DUONEBS, ALBUTEROL INHALER, AMIODARONE, ELIQUIS, ATIVAN IV PRN, NAPROXEN, ZOFRAN PRN. WE WILL CONTINUE WITH CURRENT PLAN OF CARE TODAY. OTHERWISE, WE WILL FOLLOW UP WITH AM LABS AND CONTINUE TO MONITOR. TIME SPENT ON CLINICAL ASSESSMENT, REVIEWING LABS AND IMAGING, DECISION MAKING, AND DOCUMENTATION WAS GREATER THAN 45 MINUTES. - Past Medical Family Social History Past Med/Fam/Surg Hx: No changes since H&P Allergies: Allergies codeine Allergy (Verified 10/08/20 19:50) - Review of Systems ROS: No change since H&P - Vital Signs and I&O's Vital Signs: Temperature 97.9 F Pulse Rate [Left Radial] 99 Pulse Rate 95 Respiratory Rate 20 Blood Pressure [Left Arm] 107/58 Blood Pressure 100/73 O2 Sat by Pulse Oximetry 97 Intake and Output: Intake & Output 10/10/20 10/11/20 10/12/20 10/13/20 11:59 11:59 11:59 11:59 Intake Total 2405 / 2405 480 / 480 1415 / 1415 240 / 240 Balance 2405 / 2405 480 / 480 1415 / 1415 240 / 240 - Physical Exam Oriented: Normal Eyes: Normal Ear: Normal Nose: Normal Throat: Dry Respiratory: Generalized, Diminished Cardiovascular: Normal, Edema (chronic venous stasis and edema 2+) Auscultation: Bowel Sounds: Normal Palpation: Normal Tenderness: Normal Skin: Decreased Turgur, Tender, Wound (sacrul ulcer/wounds, dressing intact. Patient not cooperative during exam.) Musculoskeletal: Back:Lumbar, Back:Paraspinous, Pelvis Psychiatric: Normal Mood Description: Calm Affect: Normal Speech Pattern: Clear, Appropriate - Laboratory and Diagnostics Result Diagrams: 10/12/20 06:09 10/12/20 08:17 Labs: 10/08/20 14:50 Blood Blood Culture - Final Streptococcus Dysgalactiae 10/08/20 14:40 Blood Blood Culture - Final Streptococcus Dysgalactiae 10/08/20 15:03 Sacral Wound Gram Stain - Final 10/08/20 15:03 Sacral Wound Culture - Final Providencia Stuartii Klebsiella Pneumoniae Proteus Mirabilis Laboratory WBC 16.5 X10^3/uL (3.6-10.0) H 10/12/20 06:09 RBC 4.40 X10^6/uL (3.5-5.4) 10/12/20 06:09 Hgb 11.8 g/dL (12.0-16.0) L 10/12/20 06:09 Hct 36.9 % (36.0-47.0) 10/12/20 06:09 MCV 83.8 fL (80.0-100.0) 10/12/20 06:09 MCH 26.9 pg (27.0-34.0) L 10/12/20 06:09 MCHC 32.1 g/dL (33.0-35.0) L 10/12/20 06:09 RDW 18.7 % (11.6-16.5) H 10/12/20 06:09 Plt Count 147 X10^3/uL (150.0-450.0) L 10/12/20 06:09 Plt Count Comment Decreased (ADEQUATE) A 10/12/20 06:09 MPV 7.4 fL (7.4-11.0) 10/12/20 06:09 Neut % (Auto) 93.0 % (42.0-75.0) H 10/12/20 06:09 Lymph % (Auto) 2.9 % (21.0-51.0) L 10/12/20 06:09 [place] % (Auto) 4.0 % (0.0-13.0) 10/12/20 06:09 Eos % (Auto) 0.0 % (0.9-2.9) L 10/12/20 06:09 Baso % (Auto) 0.1 % (0.2-1.0) L 10/12/20 06:09 Neut # (Auto) 15.3 x10^3/uL (2.2-4.8) H 10/12/20 06:09 Lymph # (Auto) 0.5 X10^3/uL (1.3-2.9) L 10/12/20 06:09 [place] # (Auto) 0.7 x10^3/uL (0.3-0.8) 10/12/20 06:09 Eos # (Auto) 0.0 x10^3/uL (0.0-0.2) 10/12/20 06:09 Baso # (Auto) 0.0 X10^3/uL (0.0-0.1) 10/12/20 06:09 Absolute Nucleated RBC 0.0 /100WBC 10/12/20 06:09 Total Counted 100 10/12/20 06:09 Neutrophils % (Manual) 84 % (39-76) H 10/12/20 06:09 Band Neutrophils % 5 % (0-10) 10/12/20 06:09 Lymphocytes % (Manual) 7 % (13-43) L 10/12/20 06:09 Monocytes % (Manual) 4 % (4-9) 10/12/20 06:09 Plt Morphology Comment Normal (NORMAL) 10/12/20 06:09 RBC Morphology Abnormal (NORMAL) A 10/12/20 06:09 Anisocytosis Slight A 10/12/20 06:09 Target Cells Slight A 10/12/20 06:09 PT 24.0 SECONDS (11.8-14.3) 10/10/20 04:51 INR Target Range - 10/10/20 04:51 INR 2.28 (0.8-1.3) H 10/10/20 04:51 APTT 31.9 SECONDS (22.9-36.5) 10/08/20 14:40 PTT Comment - 10/08/20 14:40 Sodium 147 mmol/L (136-145) H 10/12/20 06:09 Corrected Sodium TNP 10/12/20 06:09 Potassium 3.3 mmol/L (3.5-5.1) L 10/12/20 06:09 Chloride 110 mmol/L (98-107) H 10/12/20 06:09 Carbon Dioxide 29.3 mmol/L (21-32) 10/12/20 06:09 BUN 23 mg/dL (7-18) H 10/12/20 06:09 Creatinine 0.84 mg/dL (0.55-1.02) 10/12/20 08:17 Est GFR (MDRD) Af Amer > 60 (>60) 10/12/20 06:09 Est GFR (MDRD) Non-Af > 60 (>60) 10/12/20 06:09 Glucose 89 mg/dL (65-99) 10/12/20 06:09 POC Glucose (mg/dL) 103 mg/dL (65-99) H 10/11/20 17:33 Lactic Acid 1.5 mmol/L (0.4-2.0) 10/10/20 04:51 Calcium 7.9 mg/dL (8.5-10.1) L 10/12/20 06:09 Corrected Calcium 9.4 mg/dL (8.5-10.1) 10/12/20 06:09 Magnesium 2.2 mg/dL (1.7-2.9) 10/12/20 06:09 Total Bilirubin 3.60 mg/dL (0.2-1.0) H 10/12/20 06:09 AST 69 Units/L (15-37) H 10/12/20 06:09 ALT 24 Units/L (12-78) 10/12/20 06:09 Alkaline Phosphatase 472 Units/L (46-116) H 10/12/20 06:09 Creatine Kinase 82 Units/L (26-192) 10/08/20 14:40 CK-MB (CK-2) 2.6 ng/mL (0-4.0) 10/08/20 14:40 CK/CKMB % Calc 3.2 % (<4) 10/08/20 14:40 Troponin I < 0.02 ng/mL (0-1.5) 10/08/20 14:40 B-Natriuretic Peptide 572 pg/mL (0-79) H* 10/11/20 05:38 Total Protein 5.6 g/dL (6.4-8.2) L 10/12/20 06:09 Albumin 2.1 g/dL (3.4-5.0) L 10/12/20 06:09 Globulin 3.5 g/dL (2.5-4.5) 10/12/20 06:09 Albumin/Globulin Ratio 0.6 Ratio (1.1-2.1) L 10/12/20 06:09 Triglycerides 85 mg/dL (0-150) 10/09/20 04:29 Cholesterol 128 mg/dL (0-200) 10/09/20 04:29 LDL Cholesterol, Calc 98 mg/dL (0-100) 10/09/20 04:29 HDL Cholesterol 13 mg/dL (40-60) L 10/09/20 04:29 Cholesterol/HDL Ratio 9.8 (0.0-5.0) H 10/09/20 04:29 Vancomycin Trough 19.7 ug/mL (15-20) 10/12/20 08:17 SARS-CoV-2 (PCR) Negative (NEGATIVE) 10/08/20 18:04 Influenza Type A (PCR) Negative (NEGATIVE) 10/08/20 18:04 Influenza Type B (PCR) Negative (NEGATIVE) 10/08/20 18:04 RSV (PCR) Negative (NEGATIVE) 10/08/20 18:04
[2020-10-12] MEDS ORDERED: NS 100 ML IV 100 ML ONE (20:49)
[2020-10-13] MEDS: ZOSYN VIAL 3.375 GRAMS 3.375 G in NS 100 ML IV + SPIKE MINIBAG* 100 ML IV SCH ×3 (05:55→23:20)
[2020-10-13 06:39] LABS: BASOPHILS % (AUTO) 0.1 % (0.2-1.0); EOSINOPHILS # (AUTO) 0.1 x10^3/uL (0.0-0.2); EOSINOPHILS % (AUTO) 0.4 % (0.9-2.9); HEMATOCRIT 36.8 % (36.0-47.0); HEMOGLOBIN 11.9 g/dL (12.0-16.0); LYMPHOCYTES # (AUTO) 0.8 X10^3/uL (1.3-2.9); LYMPHOCYTES % (AUTO) 5.5 % (21.0-51.0); MEAN CORPUSCULAR HEMOGLOBIN 27.2 pg (27.0-34.0); MEAN CORPUSCULAR HGB CONC 32.4 g/dL (33.0-35.0); MEAN CORPUSCULAR VOLUME 83.9 fL (80.0-100.0); MEAN PLATELET VOLUME 7.4 fL (7.4-11.0); MONOCYTES % (AUTO) 6.7 % (0.0-13.0); NEUTROPHILS # (AUTO) 13.1 x10^3/uL (2.2-4.8); NEUTROPHILS % (AUTO) 87.3 % (42.0-75.0); PLATELET COUNT 171 X10^3/uL (150.0-450.0); RED BLOOD COUNT 4.38 X10^6/uL (3.5-5.4); RED CELL DISTRIBUTION WIDTH 19.4 % (11.6-16.5)
[2020-10-13] MEDS: NAPROSYN PO PRN (06:44)
[2020-10-13 06:45] LABS: ALANINE AMINOTRANSFERASE 21 Units/L (12-78); ALBUMIN 1.7 g/dL (3.4-5.0); ALKALINE PHOSPHATASE 431 Units/L (46-116); ASPARTATE AMINO TRANSFERASE 71 Units/L (15-37); BLOOD UREA NITROGEN 27 mg/dL (7-18); CALCIUM 8.1 mg/dL (8.5-10.1); CHLORIDE 112 mmol/L (98-107); COR CA(FOR HYPOALB) 9.9 mg/dL (8.5-10.1); CREATININE 0.89 mg/dL (0.55-1.02); SODIUM 148 mmol/L (136-145); TOTAL PROTEIN 5.4 g/dL (6.4-8.2); eGFR NON BLACK RACES > 60 (>60)
[2020-10-13] MEDS: ATIVAN INJ 2 MG VIAL IVP PRN (07:46)
[2020-10-13] MEDS: LASIX IVP SCH ×3 (08:22→17:51)
[2020-10-13] MEDS: DUONEB 0.5 MG/3 MG (3 mL) NEB SCH ×4 (08:30→20:52)
[2020-10-13] MEDS: ALPHAGAN-P OPHTH 1 DOSE EACHEYE SCH ×2 (10:09→21:36)
[2020-10-13] MEDS: VANCOMYCIN IV *PREMIX 750 mg/150 ML BAG 750 MG/150 ML PIGGYBACK IV SCH ×2 (10:10→21:35)
[2020-10-13] MEDS: CORDARONE TAB 200 MG PO SCH ×2 (10:10→21:29)
[2020-10-13] MEDS: ELIQUIS PO SCH ×2 (10:10→21:29)
--- NOTE | 2020-10-13 11:42 | PCM.PROG ---
Progress Note - Progress Note for Day of Date of Exam: 10/13/20 - Subjective Subjective: IS A 75 YEAR OLD PATIENT OF . SHE IS BEING TREATED FOR ACUTE CHF EXACERBATION, SEPSIS, SACRAL PRESSURE ULCER, COCCYX FRACTURE, FAILURE TO THRIVE, AND FREQUENT FALLS. SHE HAS A PMH OF CAD, A-FIB, CIRRHOSIS OF LIVER. SHE APPARENTLY HAS POOR LIVING CONDITIONS AND IS UNABLE TO TAKE CARE OF HERSELF. STAFF REPORTS THAT SHE HAS BEEN REFUSING TO WORK WITH PHYSICAL THERAPY. TODAY, SHE IS ALERT AND ORIENTED, LYING IN BED ON MORNING ROUNDS. SHE DENIES COMPLAINTS. HEART IS REGULAR IN RATE AND RHYTHM. BILATERAL LUNGS NOTED WITH DIMINISHED LUNG SOUNDS THROUGHOUT. ABDOMEN IS ROUND, SOFT, AND NON-TENDER WITH NORMAL BOWEL SOUNDS NOTED IN ALL QUADRANTS. THERE IS 1+ PITTING EDEMA NOTED TO HER LOWER EXTREMITIES. DRESSING NOTED TO SACRAL WOUND IS DRY AND INTACT. VITALS THIS MORNING ARE: 98.7-100-22-93%-114/61. LABS WERE OBTAINED. ABNORMAL LAB VALUES INCLUDE THE FOLLOWING: WBC 15.0, HGB 11.9, SODIUM 148, CHLORIDE 112, BUN 27, GLUCOSE 60, CALCIUM 8.1, TOTAL BILI 3.70, AST 71, ALK PHOS 431, TOTAL PROTEIN 5.4, ALBUMIN 1.7. WOUNDS ARE POSITIVE FOR GROWTH OF PROVIDENCIA STUARTII, KLEBSIELLA PNEUMONIAE, AND PROTEUS MIRABILIS. BLOOD CULTURES ARE POSITIVE FOR STREPTOCOCCUS DYSGALACTIAE. BACTERIA IS SENSITIVE TO THE ANTIBIOTICS THAT SHE IS CURRENTLY ON. SHE IS CURRENTLY VANCOMYCIN 750MG IV BID, ZOSYN 3.375G IV TID, POTASSIUM PROTOCOL, LASIX 20MG IV BID, DUONEBS, ALBUTEROL INHALER, AMIODARONE, ELIQUIS, ATIVAN IV PRN, NAPROXEN, ZOFRAN PRN. WE WILL CONTINUE WITH CURRENT PLAN OF CARE TODAY. OTHERWISE, WE WILL FOLLOW UP WITH AM LABS AND CONTINUE TO MONITOR. TIME SPENT ON CLINICAL ASSESSMENT, REVIEWING LABS AND IMAGING, DECISION MAKING, AND DOCUMENTATION WAS GREATER THAN 45 MINUT ES. - Past Medical Family Social History Past Med/Fam/Surg Hx: No changes since H&P Allergies: Allergies codeine Allergy (Verified 10/08/20 19:50) - Review of Systems ROS: No change since H&P - Vital Signs and I&O's Vital Signs: Temperature 98.7 F Pulse Rate [Left Radial] 101 Pulse Rate 99 Respiratory Rate 22 Blood Pressure [Left Arm] 114/61 Blood Pressure 100/73 O2 Sat by Pulse Oximetry 96 Intake and Output: Intake & Output 10/10/20 10/11/20 10/12/20 10/13/20 11:59 11:59 11:59 11:59 Intake Total 2405 / 2405 480 / 480 1415 / 1415 1021 / 1021 Balance 2405 / 2405 480 / 480 1415 / 1415 1021 / 1021 - Physical Exam Oriented: Normal Eyes: Normal Ear: Normal Nose: Normal Throat: Dry Respiratory: Generalized, Diminished Cardiovascular: Normal, Edema (chronic venous stasis and edema 2+) Auscultation: Bowel Sounds: Normal Tenderness: Normal Skin: Decreased Turgur, Tender, Wound (sacrul ulcer/wounds, dressing intact. Patient not cooperative during exam.) Musculoskeletal: Back:Lumbar, Back:Paraspinous, Pelvis Psychiatric: Normal Mood Description: Calm Affect: Normal Speech Pattern: Clear, Appropriate - Laboratory and Diagnostics Result Diagrams: 10/13/20 05:40 10/13/20 05:40 Labs: 10/11/20 09:23 Blood Blood Culture - Preliminary 10/11/20 09:15 Blood Blood Culture - Preliminary 10/08/20 14:50 Blood Blood Culture - Final Streptococcus Dysgalactiae 10/08/20 14:40 Blood Blood Culture - Final Streptococcus Dysgalactiae 10/08/20 15:03 Sacral Wound Gram Stain - Final 10/08/20 15:03 Sacral Wound Culture - Final Providencia Stuartii Klebsiella Pneumoniae Proteus Mirabilis Laboratory WBC 15.0 X10^3/uL (3.6-10.0) H 10/13/20 05:40 RBC 4.38 X10^6/uL (3.5-5.4) 10/13/20 05:40 Hgb 11.9 g/dL (12.0-16.0) L 10/13/20 05:40 Hct 36.8 % (36.0-47.0) 10/13/20 05:40 MCV 83.9 fL (80.0-100.0) 10/13/20 05:40 MCH 27.2 pg (27.0-34.0) 10/13/20 05:40 MCHC 32.4 g/dL (33.0-35.0) L 10/13/20 05:40 RDW 19.4 % (11.6-16.5) H 10/13/20 05:40 Plt Count 171 X10^3/uL (150.0-450.0) 10/13/20 05:40 Plt Count Comment Decreased (ADEQUATE) A 10/12/20 06:09 MPV 7.4 fL (7.4-11.0) 10/13/20 05:40 Neut % (Auto) 87.3 % (42.0-75.0) H 10/13/20 05:40 Lymph % (Auto) 5.5 % (21.0-51.0) L 10/13/20 05:40 [place] % (Auto) 6.7 % (0.0-13.0) 10/13/20 05:40 Eos % (Auto) 0.4 % (0.9-2.9) L 10/13/20 05:40 Baso % (Auto) 0.1 % (0.2-1.0) L 10/13/20 05:40 Neut # (Auto) 13.1 x10^3/uL (2.2-4.8) H 10/13/20 05:40 Lymph # (Auto) 0.8 X10^3/uL (1.3-2.9) L 10/13/20 05:40 [place] # (Auto) 1.0 x10^3/uL (0.3-0.8) H 10/13/20 05:40 Eos # (Auto) 0.1 x10^3/uL (0.0-0.2) 10/13/20 05:40 Baso # (Auto) 0.0 X10^3/uL (0.0-0.1) 10/13/20 05:40 Absolute Nucleated RBC 0.2 /100WBC 10/13/20 05:40 Total Counted 100 10/12/20 06:09 Neutrophils % (Manual) 84 % (39-76) H 10/12/20 06:09 Band Neutrophils % 5 % (0-10) 10/12/20 06:09 Lymphocytes % (Manual) 7 % (13-43) L 10/12/20 06:09 Monocytes % (Manual) 4 % (4-9) 10/12/20 06:09 Plt Morphology Comment Normal (NORMAL) 10/12/20 06:09 RBC Morphology Abnormal (NORMAL) A 10/12/20 06:09 Anisocytosis Slight A 10/12/20 06:09 Target Cells Slight A 10/12/20 06:09 PT 24.0 SECONDS (11.8-14.3) 10/10/20 04:51 INR Target Range - 10/10/20 04:51 INR 2.28 (0.8-1.3) H 10/10/20 04:51 APTT 31.9 SECONDS (22.9-36.5) 10/08/20 14:40 PTT Comment - 10/08/20 14:40 Sodium 148 mmol/L (136-145) H 10/13/20 05:40 Corrected Sodium TNP 10/13/20 05:40 Potassium 3.7 mmol/L (3.5-5.1) 10/13/20 05:40 Chloride 112 mmol/L (98-107) H 10/13/20 05:40 Carbon Dioxide 30.0 mmol/L (21-32) 10/13/20 05:40 BUN 27 mg/dL (7-18) H 10/13/20 05:40 Creatinine 0.89 mg/dL (0.55-1.02) 10/13/20 05:40 Est GFR (MDRD) Af Amer > 60 (>60) 10/13/20 05:40 Est GFR (MDRD) Non-Af > 60 (>60) 10/13/20 05:40 Glucose 60 mg/dL (65-99) L 10/13/20 05:40 POC Glucose (mg/dL) 103 mg/dL (65-99) H 10/11/20 17:33 Lactic Acid 1.5 mmol/L (0.4-2.0) 10/10/20 04:51 Calcium 8.1 mg/dL (8.5-10.1) L 10/13/20 05:40 Corrected Calcium 9.9 mg/dL (8.5-10.1) 10/13/20 05:40 Magnesium 2.2 mg/dL (1.7-2.9) 10/12/20 06:09 Total Bilirubin 3.70 mg/dL (0.2-1.0) H 10/13/20 05:40 AST 71 Units/L (15-37) H 10/13/20 05:40 ALT 21 Units/L (12-78) 10/13/20 05:40 Alkaline Phosphatase 431 Units/L (46-116) H 10/13/20 05:40 Creatine Kinase 82 Units/L (26-192) 10/08/20 14:40 CK-MB (CK-2) 2.6 ng/mL (0-4.0) 10/08/20 14:40 CK/CKMB % Calc 3.2 % (<4) 10/08/20 14:40 Troponin I < 0.02 ng/mL (0-1.5) 10/08/20 14:40 B-Natriuretic Peptide 572 pg/mL (0-79) H* 10/11/20 05:38 Total Protein 5.4 g/dL (6.4-8.2) L 10/13/20 05:40 Albumin 1.7 g/dL (3.4-5.0) L 10/13/20 05:40 Globulin 3.7 g/dL (2.5-4.5) 10/13/20 05:40 Albumin/Globulin Ratio 0.5 Ratio (1.1-2.1) L 10/13/20 05:40 Triglycerides 85 mg/dL (0-150) 10/09/20 04:29 Cholesterol 128 mg/dL (0-200) 10/09/20 04:29 LDL Cholesterol, Calc 98 mg/dL (0-100) 10/09/20 04:29 HDL Cholesterol 13 mg/dL (40-60) L 10/09/20 04:29 Cholesterol/HDL Ratio 9.8 (0.0-5.0) H 10/09/20 04:29 Vancomycin Trough 19.7 ug/mL (15-20) 10/12/20 08:17 SARS-CoV-2 (PCR) Negative (NEGATIVE) 10/08/20 18:04 Influenza Type A (PCR) Negative (NEGATIVE) 10/08/20 18:04 Influenza Type B (PCR) Negative (NEGATIVE) 10/08/20 18:04 RSV (PCR) Negative (NEGATIVE) 10/08/20 18:04
[2020-10-14] MEDS: ZOSYN VIAL 3.375 GRAMS 3.375 G in NS 100 ML IV + SPIKE MINIBAG* 100 ML IV SCH (05:30)
[2020-10-14 06:30] LABS: BASOPHILS % (AUTO) 0.1 % (0.2-1.0); EOSINOPHILS # (AUTO) 0.1 x10^3/uL (0.0-0.2); EOSINOPHILS % (AUTO) 1.1 % (0.9-2.9); HEMATOCRIT 37.6 % (36.0-47.0); HEMOGLOBIN 12.1 g/dL (12.0-16.0); LYMPHOCYTES # (AUTO) 0.8 X10^3/uL (1.3-2.9); LYMPHOCYTES % (AUTO) 6.1 % (21.0-51.0); MEAN CORPUSCULAR HEMOGLOBIN 27.2 pg (27.0-34.0); MEAN CORPUSCULAR VOLUME 84.9 fL (80.0-100.0); MEAN PLATELET VOLUME 7.3 fL (7.4-11.0); MONOCYTES # (AUTO) 0.9 x10^3/uL (0.3-0.8); MONOCYTES % (AUTO) 6.8 % (0.0-13.0); NEUTROPHILS % (AUTO) 85.9 % (42.0-75.0); PLATELET COUNT 203 X10^3/uL (150.0-450.0); RED BLOOD COUNT 4.44 X10^6/uL (3.5-5.4); RED CELL DISTRIBUTION WIDTH 19.5 % (11.6-16.5); WHITE BLOOD COUNT 12.8 X10^3/uL (3.6-10.0)
[2020-10-14 06:57] LABS: ALANINE AMINOTRANSFERASE 25 Units/L (12-78); ALBUMIN 1.7 g/dL (3.4-5.0); ALKALINE PHOSPHATASE 490 Units/L (46-116); ASPARTATE AMINO TRANSFERASE 93 Units/L (15-37); BLOOD UREA NITROGEN 29 mg/dL (7-18); CALCIUM 8.1 mg/dL (8.5-10.1); CHLORIDE 111 mmol/L (98-107); COR CA(FOR HYPOALB) 9.9 mg/dL (8.5-10.1); CREATININE 1.03 mg/dL (0.55-1.02); SODIUM 148 mmol/L (136-145); TOTAL PROTEIN 5.7 g/dL (6.4-8.2); eGFR NON BLACK RACES 56 (>60)
[2020-10-14] MEDS: DUONEB 0.5 MG/3 MG (3 mL) NEB SCH ×4 (09:07→20:54)
[2020-10-14] MEDS: ELIQUIS PO SCH ×2 (09:13→20:50)
[2020-10-14] MEDS: CORDARONE TAB 200 MG PO SCH ×2 (09:13→20:50)
[2020-10-14] MEDS: ALPHAGAN-P OPHTH 1 DOSE EACHEYE SCH ×2 (09:14→20:50)
[2020-10-14] MEDS: LASIX IVP SCH (09:14)
[2020-10-14 09:47] LABS: CREATININE 1.01 mg/dL (0.55-1.02)
[2020-10-14 09:52] LABS: VANCOMYCIN,TROUGH 27.7 ug/mL (15-20)
--- NOTE | 2020-10-14 09:59 | PCM.PROG ---
Progress Note Progress Note for Day of Date of Exam: 10/14/20 Subjective Subjective: Patient seen at bedside, reports feeling better. She has not gotten out of bed at all, reports sitting on the side of the bed. She has not ambulated, refuses to work with PT/OT. She also refused CXR and lasix over the weekend. She has not been eating much, reports eating only a few things. MRI results discussed with the patient in detail. Patient states she does not think the MRI was done tly properly so she does not trust the results. It did not show the coccyx fracture originally seen in the XR and also was negative for osteomyelitis. Patient is not able to take care of herself at home. PT has recommended SNF. Patient does not want to go to SNF and wants to consider swing bed but unfortunately at this time, that is not an option due to patient not being able to work wit PT at all. Discussed with patient about [facility] and CM to check if there's a bed available there. [facility]PS has also been involved and is currently assessing the situation. Labs: Hgb 12.1 WBC: 12.8 K: 3.4 BUN/Cr: 29/1.03 Pelvis MRI: no coccyx fracture noted, no OM. Large volume ascites noted in the lower abdomen. First set of blood Cx: Strep dysgalactiae Repeat blood Cx: negative Wound Cx: Proteus, Providencia and Klebsiella Plan: will DC Vancomycin, continue Zosyn. Wean O2 as tolerated, currently on 2L NC. Discussed with patient the need to take lasix and treatment compliance. Patient refused abdominal U/S and CXR last week and over the weekend. Replace K per protocol. Encouraged to work with PT/OT as tolerated. Advised patient to drink Ensure if she does not want to eat her other meal. CM to work on placement. Continue wound care and dressing change, turn patient q2h. Patient has refused to be turned. Monitor AM labs and imaging Time spent for clinical assessment, reviewing labs/imaging, physical exam, decision making and documentation greater than 75 mins. Past Medical Family Social History Past Med/Fam/Surg Hx: No changes since H&P Allergies: Allergies codeine Allergy (Verified 10/08/20 19:50) Review of Systems ROS: No change since H&P Vital Signs and I&O's Vital Signs: Temperature 97.4 F Pulse Rate [Left Radial] 95 Pulse Rate 92 Respiratory Rate 14 Blood Pressure [Left Arm] 107/64 Blood Pressure 100/73 O2 Sat by Pulse Oximetry 96 Intake and Output: Intake & Output 10/11/20 10/12/20 10/13/20 10/14/20 23:59 23:59 23:59 23:59 Intake Total 360 / 360 2046 903 / 903 783 / 783 Balance 360 / 360 2046 903 / 903 783 / 783 Physical Exam Oriented: Normal Eyes: Normal Ear: Normal Nose: Normal Throat: Dry Respiratory: Generalized and Diminished Cardiovascular: Normal and Edema (chronic venous stasis and edema 2+ ) Auscultation: Bowel Sounds: Normal Tenderness: Normal and Other (mild distension and rigidity ) Skin: Decreased Turgur, Tender and Wound (sacrul ulcer/wounds, dressing intact. Patient does not want to turn for exam ) Musculoskeletal: Back:Lumbar, Back:Paraspinous and Pelvis Psychiatric: Normal Mood Description: Calm Affect: Normal Speech Pattern: Clear and Appropriate Laboratory and Diagnostics Result Diagrams: 10/14/20 05:25 10/14/20 08:33 Labs: 10/11/20 09:23 Blood Blood Culture - Preliminary 10/11/20 09:15 Blood Blood Culture - Preliminary 10/08/20 14:50 Blood Blood Culture - Final Streptococcus Dysgalactiae 10/08/20 14:40 Blood Blood Culture - Final Streptococcus Dysgalactiae 10/08/20 15:03 Sacral Wound Gram Stain - Final 10/08/20 15:03 Sacral Wound Culture - Final Providencia Stuartii Klebsiella Pneumoniae Proteus Mirabilis Laboratory WBC 12.8 X10^3/uL (3.6-10.0) H 10/14/20 05:25 RBC 4.44 X10^6/uL (3.5-5.4) 10/14/20 05:25 Hgb 12.1 g/dL (12.0-16.0) 10/14/20 05:25 Hct 37.6 % (36.0-47.0) 10/14/20 05:25 MCV 84.9 fL (80.0-100.0) 10/14/20 05:25 MCH 27.2 pg (27.0-34.0) 10/14/20 05:25 MCHC 32.0 g/dL (33.0-35.0) L 10/14/20 05:25 RDW 19.5 % (11.6-16.5) H 10/14/20 05:25 Plt Count 203 X10^3/uL (150.0-450.0) 10/14/20 05:25 Plt Count Comment Decreased (ADEQUATE) A 10/12/20 06:09 MPV 7.3 fL (7.4-11.0) L 10/14/20 05:25 Neut % (Auto) 85.9 % (42.0-75.0) H 10/14/20 05:25 Lymph % (Auto) 6.1 % (21.0-51.0) L 10/14/20 05:25 [place] % (Auto) 6.8 % (0.0-13.0) 10/14/20 05:25 Eos % (Auto) 1.1 % (0.9-2.9) 10/14/20 05:25 Baso % (Auto) 0.1 % (0.2-1.0) L 10/14/20 05:25 Neut # (Auto) 11.0 x10^3/uL (2.2-4.8) H 10/14/20 05:25 Lymph # (Auto) 0.8 X10^3/uL (1.3-2.9) L 10/14/20 05:25 [place] # (Auto) 0.9 x10^3/uL (0.3-0.8) H 10/14/20 05:25 Eos # (Auto) 0.1 x10^3/uL (0.0-0.2) 10/14/20 05:25 Baso # (Auto) 0.0 X10^3/uL (0.0-0.1) 10/14/20 05:25 Absolute Nucleated RBC 0.0 /100WBC 10/14/20 05:25 Total Counted 100 10/12/20 06:09 Neutrophils % (Manual) 84 % (39-76) H 10/12/20 06:09 Band Neutrophils % 5 % (0-10) 10/12/20 06:09 Lymphocytes % (Manual) 7 % (13-43) L 10/12/20 06:09 Monocytes % (Manual) 4 % (4-9) 10/12/20 06:09 Plt Morphology Comment Normal (NORMAL) 10/12/20 06:09 RBC Morphology Abnormal (NORMAL) A 10/12/20 06:09 Anisocytosis Slight A 10/12/20 06:09 Target Cells Slight A 10/12/20 06:09 PT 24.0 SECONDS (11.8-14.3) 10/10/20 04:51 INR Target Range - 10/10/20 04:51 INR 2.28 (0.8-1.3) H 10/10/20 04:51 APTT 31.9 SECONDS (22.9-36.5) 10/08/20 14:40 PTT Comment - 10/08/20 14:40 Sodium 148 mmol/L (136-145) H 10/14/20 05:25 Corrected Sodium TNP 10/14/20 05:25 Potassium 3.4 mmol/L (3.5-5.1) L 10/14/20 05:25 Chloride 111 mmol/L (98-107) H 10/14/20 05:25 Carbon Dioxide 30.0 mmol/L (21-32) 10/14/20 05:25 BUN 29 mg/dL (7-18) H 10/14/20 05:25 Creatinine 1.03 mg/dL (0.55-1.02) H 10/14/20 05:25 Est GFR (MDRD) Af Amer > 60 (>60) 10/14/20 05:25 Est GFR (MDRD) Non-Af 56 (>60) L 10/14/20 05:25 Glucose 88 mg/dL (65-99) 10/14/20 05:25 POC Glucose (mg/dL) 103 mg/dL (65-99) H 10/11/20 17:33 Lactic Acid 1.5 mmol/L (0.4-2.0) 10/10/20 04:51 Calcium 8.1 mg/dL (8.5-10.1) L 10/14/20 05:25 Corrected Calcium 9.9 mg/dL (8.5-10.1) 10/14/20 05:25 Magnesium 2.2 mg/dL (1.7-2.9) 10/12/20 06:09 Total Bilirubin 3.50 mg/dL (0.2-1.0) H 10/14/20 05:25 AST 93 Units/L (15-37) H 10/14/20 05:25 ALT 25 Units/L (12-78) 10/14/20 05:25 Alkaline Phosphatase 490 Units/L (46-116) H 10/14/20 05:25 Creatine Kinase 82 Units/L (26-192) 10/08/20 14:40 CK-MB (CK-2) 2.6 ng/mL (0-4.0) 10/08/20 14:40 CK/CKMB % Calc 3.2 % (<4) 10/08/20 14:40 Troponin I < 0.02 ng/mL (0-1.5) 10/08/20 14:40 B-Natriuretic Peptide 572 pg/mL (0-79) H* 10/11/20 05:38 Total Protein 5.7 g/dL (6.4-8.2) L 10/14/20 05:25 Albumin 1.7 g/dL (3.4-5.0) L 10/14/20 05:25 Globulin 4.0 g/dL (2.5-4.5) 10/14/20 05:25 Albumin/Globulin Ratio 0.4 Ratio (1.1-2.1) L 10/14/20 05:25 Triglycerides 85 mg/dL (0-150) 10/09/20 04:29 Cholesterol 128 mg/dL (0-200) 10/09/20 04:29 LDL Cholesterol, Calc 98 mg/dL (0-100) 10/09/20 04:29 HDL Cholesterol 13 mg/dL (40-60) L 10/09/20 04:29 Cholesterol/HDL Ratio 9.8 (0.0-5.0) H 10/09/20 04:29 Vancomycin Trough 19.7 ug/mL (15-20) 10/12/20 08:17 SARS-CoV-2 (PCR) Negative (NEGATIVE) 10/08/20 18:04 Influenza Type A (PCR) Negative (NEGATIVE) 10/08/20 18:04 Influenza Type B (PCR) Negative (NEGATIVE) 10/08/20 18:04 RSV (PCR) Negative (NEGATIVE) 10/08/20 18:04 Plan (1) Acute exacerbation of CHF (congestive heart failure): Status: Acute Qualifiers: Heart failure type: combined systolic and diastolic Qualified Code(s): I50.43 - Acute on chronic combined systolic (congestive) and diastolic (congestive) heart failure (2) Gram-positive bacteremia: Status: Acute (3) Sepsis: Status: Acute Qualifiers: Sepsis acute organ dysfunction status: without acute organ dysfunction Sepsis type: sepsis due to unspecified organism Qualified Code(s): A41.9 - Sepsis, unspecified organism (4) Sacral decubitus ulcer: Status: Acute Qualifiers: Pressure injury stage: unspecified pressure injury stage Qualified Code(s): L89.159 - Pressure ulcer of sacral region, unspecified stage (5) Generalized weakness: Status: Acute (6) Failure to thrive: Status: Acute Qualifiers: Failure to thrive age range: in adult Qualified Code(s): R62.7 - Adult failure to thrive (7) Protein malnutrition: Status: Acute (8) Fall: Status: Acute Qualifiers: Encounter type: initial encounter Qualified Code(s): W19.XXXA - Unspecified fall, initial encounter (9) Poor hygiene: Status: Acute (10) Immobility: Status: Acute (11) Chronic back pain: Status: Acute Qualifiers: Back pain laterality: unspecified Back pain location: back pain in unspecified location Qualified Code(s): M54.9 - Dorsalgia, unspecified; G89.29 - Other chronic pain (12) Atrial fibrillation: Status: Acute Qualifiers: Atrial fibrillation type: unspecified chronic Qualified Code(s): I48.20 - Chronic atrial fibrillation, unspecified (13) Dilated cardiomyopathy: Status: Acute (14) Transaminitis: Status: Acute (15) Hypokalemia: Status: Acute (16) Medical non-compliance: Status: Acute
[2020-10-14] MEDS: NAPROSYN PO PRN (12:43)
[2020-10-14] MEDS: ZOSYN VIAL 3.375 GRAMS 3.375 G in NS 50 ML IV + SPIKE MINIBAG* 50 ML IV SCH ×2 (13:22→20:50)
[2020-10-14] MEDS: TYLENOL 325 MG TAB PO PRN (16:15)
[2020-10-15] MEDS: ZOSYN VIAL 3.375 GRAMS 3.375 G in NS 50 ML IV + SPIKE MINIBAG* 50 ML IV SCH ×3 (05:08→21:33)
[2020-10-15 06:15] LABS: BASOPHILS % (AUTO) 0.3 % (0.2-1.0); EOSINOPHILS # (AUTO) 0.2 x10^3/uL (0.0-0.2); EOSINOPHILS % (AUTO) 1.8 % (0.9-2.9); HEMATOCRIT 36.8 % (36.0-47.0); HEMOGLOBIN 11.7 g/dL (12.0-16.0); LYMPHOCYTES # (AUTO) 0.8 X10^3/uL (1.3-2.9); LYMPHOCYTES % (AUTO) 6.3 % (21.0-51.0); MEAN CORPUSCULAR HGB CONC 31.8 g/dL (33.0-35.0); MEAN CORPUSCULAR VOLUME 84.8 fL (80.0-100.0); MEAN PLATELET VOLUME 7.3 fL (7.4-11.0); MONOCYTES # (AUTO) 0.7 x10^3/uL (0.3-0.8); MONOCYTES % (AUTO) 6.2 % (0.0-13.0); NEUTROPHILS # (AUTO) 10.3 x10^3/uL (2.2-4.8); NEUTROPHILS % (AUTO) 85.4 % (42.0-75.0); PLATELET COUNT 205 X10^3/uL (150.0-450.0); RED BLOOD COUNT 4.34 X10^6/uL (3.5-5.4); RED CELL DISTRIBUTION WIDTH 19.1 % (11.6-16.5); WHITE BLOOD COUNT 12.1 X10^3/uL (3.6-10.0)
[2020-10-15 06:52] LABS: ALANINE AMINOTRANSFERASE 23 Units/L (12-78); ALBUMIN 1.6 g/dL (3.4-5.0); ALKALINE PHOSPHATASE 452 Units/L (46-116); ASPARTATE AMINO TRANSFERASE 94 Units/L (15-37); BLOOD UREA NITROGEN 28 mg/dL (7-18); CALCIUM 8.2 mg/dL (8.5-10.1); CARBON DIOXIDE 30.2 mmol/L (21-32); CHLORIDE 111 mmol/L (98-107); COR CA(FOR HYPOALB) 10.1 mg/dL (8.5-10.1); CREATININE 0.96 mg/dL (0.55-1.02); SODIUM 148 mmol/L (136-145); TOTAL PROTEIN 5.6 g/dL (6.4-8.2); eGFR NON BLACK RACES > 60 (>60)
[2020-10-15] MEDS: DUONEB 0.5 MG/3 MG (3 mL) NEB SCH ×4 (08:00→20:30)
[2020-10-15] MEDS: CORDARONE TAB 200 MG PO SCH ×2 (08:55→21:07)
[2020-10-15] MEDS: ELIQUIS PO SCH ×2 (08:55→21:07)
[2020-10-15] MEDS: NAPROSYN PO PRN ×2 (08:59→21:08)
[2020-10-15] MEDS: ALPHAGAN-P OPHTH 1 DOSE EACHEYE SCH ×2 (09:02→21:09)
[2020-10-15] MEDS: LASIX IVP SCH (09:02)
--- NOTE | 2020-10-15 10:45 | PCM.PROG ---
Progress Note Progress Note for Day of Date of Exam: 10/15/20 Subjective Subjective: Patient seen at bedside, no acute events overnight. She states she is doing ok. She refused to work with PT/OT again yesterday. She did not eat much yesterday and continues to refuse meals even after changes were made. Discharge planning was discussed in detail. At this time patient does not have a safe home environment to go to so [facility] at [place] was discussed. Patient is still hesitant and states she is not sure if she can share a room with another resident. It was discussed that there's no private rooms at this time and that there's waiting list for that. Patient does have a flow worker that is currently trying to sort out living arrangement for after the rehab. Dr. Pina saw the wander ent yesterday and evaluated the sacral ulcers. He stated that it was Stage 2 and he offered to do I&D to clean it up but patient refused. Patient will also need a PICC line as she still needs one more week of IV antibiotics. Patient has been on 2L NC, reports intermittent dyspnea. Refused prior CXR. She also has not had a BM and there's some abdominal distension. Labs: Hgb 11.7 WBC: 12.1 K: 3.4 BUN/Cr: 28/0.96 Pelvis MRI: no coccyx fracture noted, no OM. Large volume ascites noted in the lower abdomen. First set of blood Cx: Strep dysgalactiae Repeat blood Cx: negative Wound Cx: Proteus, Providencia and Klebsiella Plan: Continue IV Zosyn. Will order CXR and KUB. Wean O2 as tolerated, currently on 2L NC. Will order PICC line insertion. Replace K per protocol. Encouraged to work with PT/OT as tolerated. Advised patient to drink Ensure if she does not want to eat her other meal. CM to work on placement. Continue wound care and dressing change, turn patient q2h. Patient has refused to be turned. Replace K as per protocol. Monitor AM labs and imaging Time spent for clinical assessment, reviewing labs/imaging, physical exam, decision making and documentation greater than 75 mins. Past Medical Family Social History Past Med/Fam/Surg Hx: No changes since H&P Allergies: Allergies codeine Allergy (Verified 10/08/20 19:50) Review of Systems ROS: No change since H&P Vital Signs and I&O's Vital Signs: Temperature 97.6 F Pulse Rate [Left Radial] 101 Pulse Rate 101 Respiratory Rate 18 Blood Pressure [Left Arm] 118/60 Blood Pressure 100/73 O2 Sat by Pulse Oximetry 97 Intake and Output: Intake & Output 10/12/20 10/13/20 10/14/20 10/15/20 23:59 23:59 23:59 23:59 Intake Total 2046 903 / 903 1430 / 1430 175 / 175 Balance 2046 903 / 903 1430 / 1430 175 / 175 Physical Exam Oriented: Normal Eyes: Normal Ear: Normal Nose: Normal Throat: Dry Respiratory: Generalized and Diminished Cardiovascular: Normal and Edema (chronic venous stasis and edema 2+ ) Auscultation: Bowel Sounds: Normal Tenderness: Normal and Other (mild distension and rigidity ) Skin: Decreased Turgur, Tender and Wound (sacrul ulcer/wounds, dressing intact. Patient does not want to turn for exam ) Musculoskeletal: Back:Lumbar, Back:Paraspinous and Pelvis Psychiatric: Normal Mood Description: Calm Affect: Normal Speech Pattern: Clear and Appropriate Laboratory and Diagnostics Result Diagrams: 10/15/20 05:18 10/15/20 05:18 Labs: 10/11/20 09:23 Blood Blood Culture - Preliminary 10/11/20 09:15 Blood Blood Culture - Preliminary 10/08/20 14:50 Blood Blood Culture - Final Streptococcus Dysgalactiae 10/08/20 14:40 Blood Blood Culture - Final Streptococcus Dysgalactiae 10/08/20 15:03 Sacral Wound Gram Stain - Final 10/08/20 15:03 Sacral Wound Culture - Final Providencia Stuartii Klebsiella Pneumoniae Proteus Mirabilis Laboratory WBC 12.1 X10^3/uL (3.6-10.0) H 10/15/20 05:18 RBC 4.34 X10^6/uL (3.5-5.4) 10/15/20 05:18 Hgb 11.7 g/dL (12.0-16.0) L 10/15/20 05:18 Hct 36.8 % (36.0-47.0) 10/15/20 05:18 MCV 84.8 fL (80.0-100.0) 10/15/20 05:18 MCH 27.0 pg (27.0-34.0) 10/15/20 05:18 MCHC 31.8 g/dL (33.0-35.0) L 10/15/20 05:18 RDW 19.1 % (11.6-16.5) H 10/15/20 05:18 Plt Count 205 X10^3/uL (150.0-450.0) 10/15/20 05:18 Plt Count Comment Decreased (ADEQUATE) A 10/12/20 06:09 MPV 7.3 fL (7.4-11.0) L 10/15/20 05:18 Neut % (Auto) 85.4 % (42.0-75.0) H 10/15/20 05:18 Lymph % (Auto) 6.3 % (21.0-51.0) L 10/15/20 05:18 [place] % (Auto) 6.2 % (0.0-13.0) 10/15/20 05:18 Eos % (Auto) 1.8 % (0.9-2.9) 10/15/20 05:18 Baso % (Auto) 0.3 % (0.2-1.0) 10/15/20 05:18 Neut # (Auto) 10.3 x10^3/uL (2.2-4.8) H 10/15/20 05:18 Lymph # (Auto) 0.8 X10^3/uL (1.3-2.9) L 10/15/20 05:18 [place] # (Auto) 0.7 x10^3/uL (0.3-0.8) 10/15/20 05:18 Eos # (Auto) 0.2 x10^3/uL (0.0-0.2) 10/15/20 05:18 Baso # (Auto) 0.0 X10^3/uL (0.0-0.1) 10/15/20 05:18 Absolute Nucleated RBC 0.1 /100WBC 10/15/20 05:18 Total Counted 100 10/12/20 06:09 Neutrophils % (Manual) 84 % (39-76) H 10/12/20 06:09 Band Neutrophils % 5 % (0-10) 10/12/20 06:09 Lymphocytes % (Manual) 7 % (13-43) L 10/12/20 06:09 Monocytes % (Manual) 4 % (4-9) 10/12/20 06:09 Plt Morphology Comment Normal (NORMAL) 10/12/20 06:09 RBC Morphology Abnormal (NORMAL) A 10/12/20 06:09 Anisocytosis Slight A 10/12/20 06:09 Target Cells Slight A 10/12/20 06:09 PT 24.0 SECONDS (11.8-14.3) 10/10/20 04:51 INR Target Range - 10/10/20 04:51 INR 2.28 (0.8-1.3) H 10/10/20 04:51 APTT 31.9 SECONDS (22.9-36.5) 10/08/20 14:40 PTT Comment - 10/08/20 14:40 Sodium 148 mmol/L (136-145) H 10/15/20 05:18 Corrected Sodium TNP 10/15/20 05:18 Potassium 3.4 mmol/L (3.5-5.1) L 10/15/20 05:18 Chloride 111 mmol/L (98-107) H 10/15/20 05:18 Carbon Dioxide 30.2 mmol/L (21-32) 10/15/20 05:18 BUN 28 mg/dL (7-18) H 10/15/20 05:18 Creatinine 0.96 mg/dL (0.55-1.02) 10/15/20 05:18 Est GFR (MDRD) Af Amer > 60 (>60) 10/15/20 05:18 Est GFR (MDRD) Non-Af > 60 (>60) 10/15/20 05:18 Glucose 68 mg/dL (65-99) 10/15/20 05:18 POC Glucose (mg/dL) 103 mg/dL (65-99) H 10/11/20 17:33 Lactic Acid 1.5 mmol/L (0.4-2.0) 10/10/20 04:51 Calcium 8.2 mg/dL (8.5-10.1) L 10/15/20 05:18 Corrected Calcium 10.1 mg/dL (8.5-10.1) 10/15/20 05:18 Magnesium 2.2 mg/dL (1.7-2.9) 10/12/20 06:09 Total Bilirubin 3.20 mg/dL (0.2-1.0) H 10/15/20 05:18 AST 94 Units/L (15-37) H 10/15/20 05:18 ALT 23 Units/L (12-78) 10/15/20 05:18 Alkaline Phosphatase 452 Units/L (46-116) H 10/15/20 05:18 Creatine Kinase 82 Units/L (26-192) 10/08/20 14:40 CK-MB (CK-2) 2.6 ng/mL (0-4.0) 10/08/20 14:40 CK/CKMB % Calc 3.2 % (<4) 10/08/20 14:40 Troponin I < 0.02 ng/mL (0-1.5) 10/08/20 14:40 B-Natriuretic Peptide 572 pg/mL (0-79) H* 10/11/20 05:38 Total Protein 5.6 g/dL (6.4-8.2) L 10/15/20 05:18 Albumin 1.6 g/dL (3.4-5.0) L 10/15/20 05:18 Globulin 4.0 g/dL (2.5-4.5) 10/15/20 05:18 Albumin/Globulin Ratio 0.4 Ratio (1.1-2.1) L 10/15/20 05:18 Triglycerides 85 mg/dL (0-150) 10/09/20 04:29 Cholesterol 128 mg/dL (0-200) 10/09/20 04:29 LDL Cholesterol, Calc 98 mg/dL (0-100) 10/09/20 04:29 HDL Cholesterol 13 mg/dL (40-60) L 10/09/20 04:29 Cholesterol/HDL Ratio 9.8 (0.0-5.0) H 10/09/20 04:29 Vancomycin Trough 27.7 ug/mL (15-20) H* 10/14/20 08:33 SARS-CoV-2 (PCR) Negative (NEGATIVE) 10/08/20 18:04 Influenza Type A (PCR) Negative (NEGATIVE) 10/08/20 18:04 Influenza Type B (PCR) Negative (NEGATIVE) 10/08/20 18:04 RSV (PCR) Negative (NEGATIVE) 10/08/20 18:04 Plan (1) Acute exacerbation of CHF (congestive heart failure): Status: Acute Qualifiers: Heart failure type: combined systolic and diastolic Qualified Code(s): I50.43 - Acute on chronic combined systolic (congestive) and diastolic (congestive) heart failure (2) Gram-positive bacteremia: Status: Acute (3) Sepsis: Status: Acute Qualifiers: Sepsis acute organ dysfunction status: without acute organ dysfunction Sepsis type: sepsis due to unspecified organism Qualified Code(s): A41.9 - Sepsis, unspecified organism (4) Sacral decubitus ulcer: Status: Acute Qualifiers: Pressure injury stage: unspecified pressure injury stage Qualified Code(s): L89.159 - Pressure ulcer of sacral region, unspecified stage (5) Generalized weakness: Status: Acute (6) Failure to thrive: Status: Acute Qualifiers: Failure to thrive age range: in adult Qualified Code(s): R62.7 - Adult failure to thrive (7) Protein malnutrition: Status: Acute (8) Fall: Status: Acute Qualifiers: Encounter type: initial encounter Qualified Code(s): W19.XXXA - Unspecified fall, initial encounter (9) Poor hygiene: Status: Acute (10) Immobility: Status: Acute (11) Chronic back pain: Status: Acute Qualifiers: Back pain laterality: unspecified Back pain location: back pain in unspecified location Qualified Code(s): M54.9 - Dorsalgia, unspecified; G89.29 - Other chronic pain (12) Atrial fibrillation: Status: Acute Qualifiers: Atrial fibrillation type: unspecified chronic Qualified Code(s): I48.20 - Chronic atrial fibrillation, unspecified (13) Dilated cardiomyopathy: Status: Acute (14) Transaminitis: Status: Acute (15) Hypokalemia: Status: Acute (16) Medical non-compliance: Status: Acute
--- NOTE | 2020-10-15 12:40 | RAD ---
CHEST, 1 VIEWHISTORY:PULMONARY EDEMA, PNEUMONIA, HYPOXIAStudy: Single view of the chest.Comparison:October 11, 2020Findings:Cardiomegaly and pulmonary vascular congestion. Small bilateral effusions present. Osseous structures demonstrate no acute abnormality.IMPRESSION:1. Cardiomegaly, pulmonary edema and small bilateral effusions, not significantly changed.Electronically signed by: TANNER WOO (Oct 15, 2020 12:39:13)
--- NOTE | 2020-10-15 12:45 | RAD ---
KUBHISTORY: Abdominal distention and constipationStudy: Single flat views of the abdomenComparison:NoneFindings:There is a normal bowel gas pattern.No free air..No abnormal calcifications or abnormal soft tissue shadows. No acute bony abnormalities.IMPRESSION:1. No evidence for acute abdominal pathology.Electronically signed by: TANNER WOO (Oct 15, 2020 12:44:07)
--- NOTE | 2020-10-15 17:23 | DR.PROGNOT ---
Hospital Progress Notes - Progress Note for Day of: Progress Note Date: 10/15/20 - Chief Complaint Chief Complaint: no changes in ulcer condition. - Past Medical Family Social History Past Med/Fam/Surg Hx: No changes since H&P Allergies: Allergies codeine Allergy (Verified 10/08/20 19:50) - Review Of Systems ROS: No change since H&P - Vital Signs Vital Signs: Temperature 98.3 F Pulse Rate [Left Radial] 103 Pulse Rate 101 Respiratory Rate 16 Blood Pressure [Left Arm] 102/65 Blood Pressure 100/73 O2 Sat by Pulse Oximetry 99 - Physical Exam Oriented: Normal Eyes: Normal Ear: Normal Nose: Normal Throat: Dry Respiratory: Generalized, Diminished Cardiovascular: Normal, Edema (chronic venous stasis and edema 2+) GI:Auscultation: Normal GI:Palpation: Normal GI: Tenderness: Normal, Other (mild distension and rigidity) Skin: Decreased Turgur, Tender, Wound (sacrul ulcer/wounds, dressing intact. Patient does not want to turn for exam) Musculoskeletal: Back:Lumbar, Back:Paraspinous, Pelvis Psychiatric: Normal Mood Description: Calm Affect: Normal Speech Pattern: Clear, Appropriate - Laboratory and Diagnostics Result Diagrams: 10/15/20 05:18 10/15/20 05:18 Labs: 10/11/20 09:23 Blood Blood Culture - Preliminary 10/11/20 09:15 Blood Blood Culture - Preliminary 10/08/20 14:50 Blood Blood Culture - Final Streptococcus Dysgalactiae 10/08/20 14:40 Blood Blood Culture - Final Streptococcus Dysgalactiae 10/08/20 15:03 Sacral Wound Gram Stain - Final 10/08/20 15:03 Sacral Wound Culture - Final Providencia Stuartii Klebsiella Pneumoniae Proteus Mirabilis Laboratory WBC 12.1 X10^3/uL (3.6-10.0) H 10/15/20 05:18 RBC 4.34 X10^6/uL (3.5-5.4) 10/15/20 05:18 Hgb 11.7 g/dL (12.0-16.0) L 10/15/20 05:18 Hct 36.8 % (36.0-47.0) 10/15/20 05:18 MCV 84.8 fL (80.0-100.0) 10/15/20 05:18 MCH 27.0 pg (27.0-34.0) 10/15/20 05:18 MCHC 31.8 g/dL (33.0-35.0) L 10/15/20 05:18 RDW 19.1 % (11.6-16.5) H 10/15/20 05:18 Plt Count 205 X10^3/uL (150.0-450.0) 10/15/20 05:18 Plt Count Comment Decreased (ADEQUATE) A 10/12/20 06:09 MPV 7.3 fL (7.4-11.0) L 10/15/20 05:18 Neut % (Auto) 85.4 % (42.0-75.0) H 10/15/20 05:18 Lymph % (Auto) 6.3 % (21.0-51.0) L 10/15/20 05:18 [place] % (Auto) 6.2 % (0.0-13.0) 10/15/20 05:18 Eos % (Auto) 1.8 % (0.9-2.9) 10/15/20 05:18 Baso % (Auto) 0.3 % (0.2-1.0) 10/15/20 05:18 Neut # (Auto) 10.3 x10^3/uL (2.2-4.8) H 10/15/20 05:18 Lymph # (Auto) 0.8 X10^3/uL (1.3-2.9) L 10/15/20 05:18 [place] # (Auto) 0.7 x10^3/uL (0.3-0.8) 10/15/20 05:18 Eos # (Auto) 0.2 x10^3/uL (0.0-0.2) 10/15/20 05:18 Baso # (Auto) 0.0 X10^3/uL (0.0-0.1) 10/15/20 05:18 Absolute Nucleated RBC 0.1 /100WBC 10/15/20 05:18 Total Counted 100 10/12/20 06:09 Neutrophils % (Manual) 84 % (39-76) H 10/12/20 06:09 Band Neutrophils % 5 % (0-10) 10/12/20 06:09 Lymphocytes % (Manual) 7 % (13-43) L 10/12/20 06:09 Monocytes % (Manual) 4 % (4-9) 10/12/20 06:09 Plt Morphology Comment Normal (NORMAL) 10/12/20 06:09 RBC Morphology Abnormal (NORMAL) A 10/12/20 06:09 Anisocytosis Slight A 10/12/20 06:09 Target Cells Slight A 10/12/20 06:09 PT 24.0 SECONDS (11.8-14.3) 10/10/20 04:51 INR Target Range - 10/10/20 04:51 INR 2.28 (0.8-1.3) H 10/10/20 04:51 APTT 31.9 SECONDS (22.9-36.5) 10/08/20 14:40 PTT Comment - 10/08/20 14:40 Sodium 148 mmol/L (136-145) H 10/15/20 05:18 Corrected Sodium TNP 10/15/20 05:18 Potassium 3.4 mmol/L (3.5-5.1) L 10/15/20 05:18 Chloride 111 mmol/L (98-107) H 10/15/20 05:18 Carbon Dioxide 30.2 mmol/L (21-32) 10/15/20 05:18 BUN 28 mg/dL (7-18) H 10/15/20 05:18 Creatinine 0.96 mg/dL (0.55-1.02) 10/15/20 05:18 Est GFR (MDRD) Af Amer > 60 (>60) 10/15/20 05:18 Est GFR (MDRD) Non-Af > 60 (>60) 10/15/20 05:18 Glucose 68 mg/dL (65-99) 10/15/20 05:18 POC Glucose (mg/dL) 103 mg/dL (65-99) H 10/11/20 17:33 Lactic Acid 1.5 mmol/L (0.4-2.0) 10/10/20 04:51 Calcium 8.2 mg/dL (8.5-10.1) L 10/15/20 05:18 Corrected Calcium 10.1 mg/dL (8.5-10.1) 10/15/20 05:18 Magnesium 2.2 mg/dL (1.7-2.9) 10/12/20 06:09 Total Bilirubin 3.20 mg/dL (0.2-1.0) H 10/15/20 05:18 AST 94 Units/L (15-37) H 10/15/20 05:18 ALT 23 Units/L (12-78) 10/15/20 05:18 Alkaline Phosphatase 452 Units/L (46-116) H 10/15/20 05:18 Creatine Kinase 82 Units/L (26-192) 10/08/20 14:40 CK-MB (CK-2) 2.6 ng/mL (0-4.0) 10/08/20 14:40 CK/CKMB % Calc 3.2 % (<4) 10/08/20 14:40 Troponin I < 0.02 ng/mL (0-1.5) 10/08/20 14:40 B-Natriuretic Peptide 572 pg/mL (0-79) H* 10/11/20 05:38 Total Protein 5.6 g/dL (6.4-8.2) L 10/15/20 05:18 Albumin 1.6 g/dL (3.4-5.0) L 10/15/20 05:18 Globulin 4.0 g/dL (2.5-4.5) 10/15/20 05:18 Albumin/Globulin Ratio 0.4 Ratio (1.1-2.1) L 10/15/20 05:18 Triglycerides 85 mg/dL (0-150) 10/09/20 04:29 Cholesterol 128 mg/dL (0-200) 10/09/20 04:29 LDL Cholesterol, Calc 98 mg/dL (0-100) 10/09/20 04:29 HDL Cholesterol 13 mg/dL (40-60) L 10/09/20 04:29 Cholesterol/HDL Ratio 9.8 (0.0-5.0) H 10/09/20 04:29 Vancomycin Trough 27.7 ug/mL (15-20) H* 10/14/20 08:33 SARS-CoV-2 (PCR) Negative (NEGATIVE) 10/08/20 18:04 Influenza Type A (PCR) Negative (NEGATIVE) 10/08/20 18:04 Influenza Type B (PCR) Negative (NEGATIVE) 10/08/20 18:04 RSV (PCR) Negative (NEGATIVE) 10/08/20 18:04 - Assessment and Plan 1: sacral decubitus ulcer stage 2 , 3 x 3 cm. at this point the ulcer could be treated with local care , wet to dry dressing. and well padding . ATB (Bactrim BID ). f/u in two weeks .
[2020-10-15] MEDS ORDERED: ROBITUSSIN DM ONE (21:32)
[2020-10-15] MEDS: ROBITUSSIN DM PO PRN (21:33)
[2020-10-16] MEDS ORDERED: MAALOX or MYLANTA PO PRN (03:48)
[2020-10-16] MEDS ORDERED: MAALOX or MYLANTA ONE (03:52)
[2020-10-16] MEDS: ZOSYN VIAL 3.375 GRAMS 3.375 G in NS 50 ML IV + SPIKE MINIBAG* 50 ML IV SCH ×3 (05:49→22:05)
[2020-10-16 05:57] LABS: BASOPHILS # (AUTO) 0.1 X10^3/uL (0.0-0.1); BASOPHILS % (AUTO) 0.4 % (0.2-1.0); EOSINOPHILS # (AUTO) 0.2 x10^3/uL (0.0-0.2); EOSINOPHILS % (AUTO) 1.2 % (0.9-2.9); HEMATOCRIT 38.5 % (36.0-47.0); HEMOGLOBIN 12.3 g/dL (12.0-16.0); LYMPHOCYTES # (AUTO) 0.9 X10^3/uL (1.3-2.9); MEAN CORPUSCULAR HEMOGLOBIN 27.1 pg (27.0-34.0); MEAN CORPUSCULAR VOLUME 84.6 fL (80.0-100.0); MEAN PLATELET VOLUME 7.2 fL (7.4-11.0); MONOCYTES # (AUTO) 0.8 x10^3/uL (0.3-0.8); MONOCYTES % (AUTO) 5.5 % (0.0-13.0); NEUTROPHILS # (AUTO) 12.2 x10^3/uL (2.2-4.8); NEUTROPHILS % (AUTO) 86.9 % (42.0-75.0); PLATELET COUNT 217 X10^3/uL (150.0-450.0); RED BLOOD COUNT 4.56 X10^6/uL (3.5-5.4); RED CELL DISTRIBUTION WIDTH 19.6 % (11.6-16.5); WHITE BLOOD COUNT 14.1 X10^3/uL (3.6-10.0)
[2020-10-16 07:15] LABS: ALANINE AMINOTRANSFERASE 25 Units/L (12-78); ALBUMIN 1.5 g/dL (3.4-5.0); ALKALINE PHOSPHATASE 449 Units/L (46-116); ASPARTATE AMINO TRANSFERASE 109 Units/L (15-37); BLOOD UREA NITROGEN 27 mg/dL (7-18); CALCIUM 8.2 mg/dL (8.5-10.1); CARBON DIOXIDE 27.6 mmol/L (21-32); CHLORIDE 111 mmol/L (98-107); COR CA(FOR HYPOALB) 10.2 mg/dL (8.5-10.1); CREATININE 0.93 mg/dL (0.55-1.02); MAGNESIUM 2.3 mg/dL (1.7-2.9); SODIUM 147 mmol/L (136-145); TOTAL PROTEIN 5.7 g/dL (6.4-8.2); eGFR NON BLACK RACES > 60 (>60)
[2020-10-16] MEDS: TYLENOL 325 MG TAB PO PRN ×2 (08:56→20:29)
[2020-10-16] MEDS: DUONEB 0.5 MG/3 MG (3 mL) NEB SCH ×4 (09:00→21:23)
[2020-10-16] MEDS: CORDARONE TAB 200 MG PO SCH ×2 (10:22→20:29)
[2020-10-16] MEDS: ELIQUIS PO SCH ×2 (10:22→20:29)
[2020-10-16] MEDS: LASIX IVP SCH (10:24)
[2020-10-16] MEDS: ALPHAGAN-P OPHTH 1 DOSE EACHEYE SCH ×2 (10:24→20:32)
[2020-10-16] MEDS ORDERED: DULCOLAX SUPPOSITORY 10 MG RECTAL ONE (10:30)
[2020-10-16] MEDS: PEPCID TAB 20 MG PO SCH ×2 (12:26→20:29)
[2020-10-16] MEDS: K-DUR TAB 20 MEQ PO SCH (12:26)
[2020-10-16] MEDS: NAPROSYN PO PRN (13:13)
--- NOTE | 2020-10-16 15:29 | PCM.PROG ---
Progress Note Progress Note for Day of Date of Exam: 10/16/20 Subjective Subjective: Patient seen at bedside, no events overnight. Patient has not eaten breakfast this morning. She ate a little bit yesterday. She states she has been having some heartburn and indigestion. She refused to work with PT again. PICC line was not able to be placed yesterday. CM working on discharge planning. KUB was normal, patient not able to recall her last BM. CXR showed small bilateral pleural effusions and pulmonary edema. Patient has refused tanner for accurate I/Os. She remains on 2L NC with no respiratory distress. Patient refused potassium replacement yesterday. Labs: Hgb 12.3 WBC: 14.1 K: 3.4 BUN/Cr: 27/0.93 Pelvis MRI: no coccyx fracture noted, no OM. Large volume ascites noted in the lower abdomen. First set of blood Cx: Strep dysgalactiae Repeat blood Cx: negative Wound Cx: Proteus, Providencia and Klebsiella Plan: Continue IV Zosyn. PICC placement pending. Wean O2 as tolerated, currently on 2L. Continue IV lasix 20 mg daily. Start KCl 40 meQ daily. Encouraged to work with PT/OT as tolerated. Advised patient to drink Ensure if she does not want to eat her other meal. Encouraged PO intake. Will check with pharmacy regarding nutrition. CM to work on placement. Continue wound care and dressing change, turn patient q2h. Patient has refused to be turned. Monitor AM labs and imaging Time spent for clinical assessment, reviewing labs/imaging, physical exam, decision making and documentation greater than 75 mins. Past Medical Family Social History Past Med/Fam/Surg Hx: No changes since H&P Allergies: Allergies codeine Allergy (Verified 10/08/20 19:50) Review of Systems ROS: No change since H&P Vital Signs and I&O's Vital Signs: Temperature 97.6 F Pulse Rate [Left Radial] 94 Pulse Rate 82 Respiratory Rate 26 Blood Pressure [Left Arm] 126/71 Blood Pressure 100/73 O2 Sat by Pulse Oximetry 98 Intake and Output: Intake & Output 10/13/20 10/14/20 10/15/20 10/16/20 23:59 23:59 23:59 23:59 Intake Total 903 / 903 1430 / 1430 753 / 753 120 / 120 Balance 903 / 903 1430 / 1430 753 / 753 120 / 120 Physical Exam Oriented: Normal Eyes: Normal Ear: Normal Nose: Normal Throat: Normal Respiratory: Generalized and Diminished Cardiovascular: Normal and Edema (chronic venous stasis and edema 2+ ) Auscultation: Bowel Sounds: Normal Tenderness: Normal and Other (mild distension and rigidity ) Skin: Decreased Turgur, Tender and Wound (sacrul ulcer/wounds, dressing intact. Patient does not want to turn for exam ) Musculoskeletal: Back:Lumbar, Back:Paraspinous and Pelvis Psychiatric: Normal Mood Description: Calm Affect: Normal Speech Pattern: Clear and Appropriate Laboratory and Diagnostics Result Diagrams: 10/16/20 04:30 10/16/20 04:30 Labs: 10/11/20 09:23 Blood Blood Culture - Final 10/11/20 09:15 Blood Blood Culture - Final 10/08/20 14:50 Blood Blood Culture - Final Streptococcus Dysgalactiae 10/08/20 14:40 Blood Blood Culture - Final Streptococcus Dysgalactiae 10/08/20 15:03 Sacral Wound Gram Stain - Final 10/08/20 15:03 Sacral Wound Culture - Final Providencia Stuartii Klebsiella Pneumoniae Proteus Mirabilis Laboratory WBC 14.1 X10^3/uL (3.6-10.0) H 10/16/20 04:30 RBC 4.56 X10^6/uL (3.5-5.4) 10/16/20 04:30 Hgb 12.3 g/dL (12.0-16.0) 10/16/20 04:30 Hct 38.5 % (36.0-47.0) 10/16/20 04:30 MCV 84.6 fL (80.0-100.0) 10/16/20 04:30 MCH 27.1 pg (27.0-34.0) 10/16/20 04:30 MCHC 32.0 g/dL (33.0-35.0) L 10/16/20 04:30 RDW 19.6 % (11.6-16.5) H 10/16/20 04:30 Plt Count 217 X10^3/uL (150.0-450.0) 10/16/20 04:30 Plt Count Comment Decreased (ADEQUATE) A 10/12/20 06:09 MPV 7.2 fL (7.4-11.0) L 10/16/20 04:30 Neut % (Auto) 86.9 % (42.0-75.0) H 10/16/20 04:30 Lymph % (Auto) 6.0 % (21.0-51.0) L 10/16/20 04:30 [place] % (Auto) 5.5 % (0.0-13.0) 10/16/20 04:30 Eos % (Auto) 1.2 % (0.9-2.9) 10/16/20 04:30 Baso % (Auto) 0.4 % (0.2-1.0) 10/16/20 04:30 Neut # (Auto) 12.2 x10^3/uL (2.2-4.8) H 10/16/20 04:30 Lymph # (Auto) 0.9 X10^3/uL (1.3-2.9) L 10/16/20 04:30 [place] # (Auto) 0.8 x10^3/uL (0.3-0.8) 10/16/20 04:30 Eos # (Auto) 0.2 x10^3/uL (0.0-0.2) 10/16/20 04:30 Baso # (Auto) 0.1 X10^3/uL (0.0-0.1) 10/16/20 04:30 Absolute Nucleated RBC 0.0 /100WBC 10/16/20 04:30 Total Counted 100 10/12/20 06:09 Neutrophils % (Manual) 84 % (39-76) H 10/12/20 06:09 Band Neutrophils % 5 % (0-10) 10/12/20 06:09 Lymphocytes % (Manual) 7 % (13-43) L 10/12/20 06:09 Monocytes % (Manual) 4 % (4-9) 10/12/20 06:09 Plt Morphology Comment Normal (NORMAL) 10/12/20 06:09 RBC Morphology Abnormal (NORMAL) A 10/12/20 06:09 Anisocytosis Slight A 10/12/20 06:09 Target Cells Slight A 10/12/20 06:09 PT 24.0 SECONDS (11.8-14.3) 10/10/20 04:51 INR Target Range - 10/10/20 04:51 INR 2.28 (0.8-1.3) H 10/10/20 04:51 APTT 31.9 SECONDS (22.9-36.5) 10/08/20 14:40 PTT Comment - 10/08/20 14:40 Sodium 147 mmol/L (136-145) H 10/16/20 04:30 Corrected Sodium TNP 10/16/20 04:30 Potassium 3.4 mmol/L (3.5-5.1) L 10/16/20 04:30 Chloride 111 mmol/L (98-107) H 10/16/20 04:30 Carbon Dioxide 27.6 mmol/L (21-32) 10/16/20 04:30 BUN 27 mg/dL (7-18) H 10/16/20 04:30 Creatinine 0.93 mg/dL (0.55-1.02) 10/16/20 04:30 Est GFR (MDRD) Af Amer > 60 (>60) 10/16/20 04:30 Est GFR (MDRD) Non-Af > 60 (>60) 10/16/20 04:30 Glucose 69 mg/dL (65-99) 10/16/20 04:30 POC Glucose (mg/dL) 78 mg/dL (65-99) 10/15/20 19:59 Lactic Acid 1.5 mmol/L (0.4-2.0) 10/10/20 04:51 Calcium 8.2 mg/dL (8.5-10.1) L 10/16/20 04:30 Corrected Calcium 10.2 mg/dL (8.5-10.1) H 10/16/20 04:30 Magnesium 2.3 mg/dL (1.7-2.9) 10/16/20 04:30 Total Bilirubin 2.80 mg/dL (0.2-1.0) H 10/16/20 04:30 AST 109 Units/L (15-37) H 10/16/20 04:30 ALT 25 Units/L (12-78) 10/16/20 04:30 Alkaline Phosphatase 449 Units/L (46-116) H 10/16/20 04:30 Creatine Kinase 82 Units/L (26-192) 10/08/20 14:40 CK-MB (CK-2) 2.6 ng/mL (0-4.0) 10/08/20 14:40 CK/CKMB % Calc 3.2 % (<4) 10/08/20 14:40 Troponin I < 0.02 ng/mL (0-1.5) 10/08/20 14:40 B-Natriuretic Peptide 572 pg/mL (0-79) H* 10/11/20 05:38 Total Protein 5.7 g/dL (6.4-8.2) L 10/16/20 04:30 Albumin 1.5 g/dL (3.4-5.0) L 10/16/20 04:30 Globulin 4.2 g/dL (2.5-4.5) 10/16/20 04:30 Albumin/Globulin Ratio 0.4 Ratio (1.1-2.1) L 10/16/20 04:30 Triglycerides 85 mg/dL (0-150) 10/09/20 04:29 Cholesterol 128 mg/dL (0-200) 10/09/20 04:29 LDL Cholesterol, Calc 98 mg/dL (0-100) 10/09/20 04:29 HDL Cholesterol 13 mg/dL (40-60) L 10/09/20 04:29 Cholesterol/HDL Ratio 9.8 (0.0-5.0) H 10/09/20 04:29 Vancomycin Trough 27.7 ug/mL (15-20) H* 10/14/20 08:33 SARS-CoV-2 (PCR) Negative (NEGATIVE) 10/08/20 18:04 Influenza Type A (PCR) Negative (NEGATIVE) 10/08/20 18:04 Influenza Type B (PCR) Negative (NEGATIVE) 10/08/20 18:04 RSV (PCR) Negative (NEGATIVE) 10/08/20 18:04 Plan (1) Acute exacerbation of CHF (congestive heart failure): Status: Acute Qualifiers: Heart failure type: combined systolic and diastolic Qualified Code(s): I50.43 - Acute on chronic combined systolic (congestive) and diastolic (congestive) heart failure (2) Gram-positive bacteremia: Status: Acute (3) Sepsis: Status: Acute Qualifiers: Sepsis acute organ dysfunction status: without acute organ dysfunction Sepsis type: sepsis due to unspecified organism Qualified Code(s): A41.9 - Sepsis, unspecified organism (4) Sacral decubitus ulcer: Status: Acute Qualifiers: Pressure injury stage: unspecified pressure injury stage Qualified Code(s): L89.159 - Pressure ulcer of sacral region, unspecified stage (5) Generalized weakness: Status: Acute (6) Failure to thrive: Status: Acute Qualifiers: Failure to thrive age range: in adult Qualified Code(s): R62.7 - Adult failure to thrive (7) Protein malnutrition: Status: Acute (8) Fall: Status: Acute Qualifiers: Encounter type: initial encounter Qualified Code(s): W19.XXXA - Unspecified fall, initial encounter (9) Poor hygiene: Status: Acute (10) Immobility: Status: Acute (11) Chronic back pain: Status: Acute Qualifiers: Back pain laterality: unspecified Back pain location: back pain in unspecified location Qualified Code(s): M54.9 - Dorsalgia, unspecified; G89.29 - Other chronic pain (12) Atrial fibrillation: Status: Acute Qualifiers: Atrial fibrillation type: unspecified chronic Qualified Code(s): I48.20 - Chronic atrial fibrillation, unspecified (13) Dilated cardiomyopathy: Status: Acute (14) Transaminitis: Status: Acute (15) Hypokalemia: Status: Acute (16) Medical non-compliance: Status: Acute
[2020-10-16] MEDS: ROBITUSSIN DM PO PRN (20:30)
[2020-10-17] MEDS ORDERED: NS 100 ML IV 100 ML ONE (05:20)
[2020-10-17] MEDS: ZOSYN VIAL 3.375 GRAMS 3.375 G in NS 50 ML IV + SPIKE MINIBAG* 50 ML IV SCH ×3 (05:27→21:31)
[2020-10-17 05:31] LABS: ALANINE AMINOTRANSFERASE 27 Units/L (12-78); ALBUMIN 1.6 g/dL (3.4-5.0); ALKALINE PHOSPHATASE 452 Units/L (46-116); ASPARTATE AMINO TRANSFERASE 137 Units/L (15-37); BLOOD UREA NITROGEN 29 mg/dL (7-18); CALCIUM 8.5 mg/dL (8.5-10.1); CARBON DIOXIDE 28.5 mmol/L (21-32); CHLORIDE 110 mmol/L (98-107); COR CA(FOR HYPOALB) 10.4 mg/dL (8.5-10.1); CREATININE 0.98 mg/dL (0.55-1.02); SODIUM 146 mmol/L (136-145); TOTAL PROTEIN 5.7 g/dL (6.4-8.2); eGFR NON BLACK RACES 59 (>60)
[2020-10-17 05:35] LABS: BASOPHILS # (AUTO) 0.1 X10^3/uL (0.0-0.1); BASOPHILS % (AUTO) 0.4 % (0.2-1.0); EOSINOPHILS # (AUTO) 0.2 x10^3/uL (0.0-0.2); HEMATOCRIT 38.3 % (36.0-47.0); HEMOGLOBIN 12.5 g/dL (12.0-16.0); LYMPHOCYTES # (AUTO) 0.7 X10^3/uL (1.3-2.9); LYMPHOCYTES % (AUTO) 4.8 % (21.0-51.0); MEAN CORPUSCULAR HEMOGLOBIN 27.4 pg (27.0-34.0); MEAN CORPUSCULAR HGB CONC 32.7 g/dL (33.0-35.0); MEAN CORPUSCULAR VOLUME 83.8 fL (80.0-100.0); MEAN PLATELET VOLUME 7.4 fL (7.4-11.0); MONOCYTES # (AUTO) 0.8 x10^3/uL (0.3-0.8); MONOCYTES % (AUTO) 5.2 % (0.0-13.0); NEUTROPHILS # (AUTO) 13.8 x10^3/uL (2.2-4.8); NEUTROPHILS % (AUTO) 88.6 % (42.0-75.0); PLATELET COUNT 258 X10^3/uL (150.0-450.0); RED BLOOD COUNT 4.58 X10^6/uL (3.5-5.4); RED CELL DISTRIBUTION WIDTH 19.7 % (11.6-16.5); WHITE BLOOD COUNT 15.6 X10^3/uL (3.6-10.0)
[2020-10-17] MEDS: ALPHAGAN-P OPHTH 1 DOSE EACHEYE SCH ×2 (09:14→21:36)
[2020-10-17] MEDS: ATIVAN INJ 2 MG VIAL IVP PRN ×2 (09:15→23:04)
[2020-10-17] MEDS: LASIX IVP SCH (09:15)
[2020-10-17] MEDS: PEPCID TAB 20 MG PO SCH ×2 (09:15→21:33)
[2020-10-17] MEDS: K-DUR TAB 20 MEQ PO SCH (09:15)
[2020-10-17] MEDS: ELIQUIS PO SCH (09:15)
[2020-10-17] MEDS: CORDARONE TAB 200 MG PO SCH ×2 (09:15→21:32)
[2020-10-17] MEDS: DUONEB 0.5 MG/3 MG (3 mL) NEB SCH ×4 (09:17→20:36)
[2020-10-17] MEDS: VSL#3 PO SCH (09:20)
--- NOTE | 2020-10-17 10:45 | RAD ---
HISTORYRight-sided chest pain, rib painSTUDYKUBCOMPARISONNoneFINDINGSThere is moderate gastric dilatation present. The abdominal gas pat tern is otherwise nonspecific and nonobstructive. No abnormal masses or abnormal calcifications are i dentified. Regional skeleton is intact.IMPRESSIONModerate gastric dilatationElectronically signed by: TIFFANY BIGGS (Oct 17, 2020 10:43:46)
[2020-10-17] MEDS: TYLENOL 325 MG TAB PO PRN ×2 (11:03→21:32)
[2020-10-17] MEDS ORDERED: D50W ABBOJECT SYR IV ONE (16:45)
--- NOTE | 2020-10-17 16:51 | PCM.PROG ---
Progress Note Progress Note for Day of Date of Exam: 10/17/20 Subjective Subjective: Patient seen at bedside, no acute overnight events. Patient reports she has been having diarrhea since yesterday evening. She was given one dose of suppository due to constipation. She states she had multiple episodes last night. PICC line attempt was unsuccessful. CM working on discharge planning. Patient continues to refuse working with PT/OT. She has also been refusing to eat. She has been drinking chocolate milk. Labs: Hgb 12.5 WBC: 15.6 K: 3.6 BUN/Cr: 29/0.98 Pelvis MRI: no coccyx fracture noted, no OM. Large volume ascites noted in the lower abdomen. First set of blood Cx: Strep dysgalactiae Repeat blood Cx: negative Wound Cx: Proteus, Providencia and Klebsiella Plan: Continue IV Zosyn. Patient is on Day 01/16 of IV zosyn, continue peripheral IV. Will get KUB due to increased abdominal distension today and consider abdominal U/S. Will check stool for c.diff and DAGMAR hunter stool softner. Add probiotic. Patient had refused abdominal U/S last week. Wean O2 as t olerated, currently on 2L. Continue IV lasix 20 mg daily. Encouraged to work with PT/OT as tolerated. Advised patient to drink Ensure if she does not want to eat her other meal. Encouraged PO intake. CM to work on placement. Continue wound care and dressing change, turn patient q2h. Monitor AM labs and imaging Time spent for clinical assessment, reviewing labs/imaging, physical exam, decision making and documentation greater than 75 mins. Past Medical Family Social History Past Med/Fam/Surg Hx: No changes since H&P Allergies: Allergies codeine Allergy (Verified 10/08/20 19:50) Review of Systems ROS: No change since H&P Vital Signs and I&O's Vital Signs: Temperature 97.2 F Pulse Rate [Left Radial] 66 Pulse Rate 65 Respiratory Rate 18 Blood Pressure [Right Arm] 111/70 Blood Pressure [Left Arm] 99/62 Blood Pressure 100/73 O2 Sat by Pulse Oximetry 96 Intake and Output: Intake & Output 10/14/20 10/15/20 10/16/20 10/17/20 23:59 23:59 23:59 23:59 Intake Total 1430 / 1430 753 / 753 1485 / 1485 220 / 220 Balance 1430 / 1430 753 / 753 1485 / 1485 220 / 220 Physical Exam Oriented: Normal Eyes: Normal Ear: Normal Nose: Normal Throat: Normal Respiratory: Generalized and Diminished Cardiovascular: Normal and Edema (chronic venous stasis and edema 2+ ) Auscultation: Bowel Sounds: Normal Palpation: Normal Tenderness: Normal and Other (increased distension and rigidity ) Skin: Decreased Turgur, Tender and Wound (sacrul ulcer/wounds, dressing intact. Patient does not want to turn for exam ) Musculoskeletal: Back:Lumbar, Back:Paraspinous and Pelvis Psychiatric: Normal Mood Description: Calm Affect: Normal Speech Pattern: Clear and Appropriate Laboratory and Diagnostics Result Diagrams: 10/17/20 04:16 10/17/20 04:16 Labs: 10/11/20 09:23 Blood Blood Culture - Final 10/11/20 09:15 Blood Blood Culture - Final 10/08/20 14:50 Blood Blood Culture - Final Streptococcus Dysgalactiae 10/08/20 14:40 Blood Blood Culture - Final Streptococcus Dysgalactiae 10/08/20 15:03 Sacral Wound Gram Stain - Final 10/08/20 15:03 Sacral Wound Culture - Final Providencia Stuartii Klebsiella Pneumoniae Proteus Mirabilis Laboratory WBC 15.6 X10^3/uL (3.6-10.0) H 10/17/20 04:16 RBC 4.58 X10^6/uL (3.5-5.4) 10/17/20 04:16 Hgb 12.5 g/dL (12.0-16.0) 10/17/20 04:16 Hct 38.3 % (36.0-47.0) 10/17/20 04:16 MCV 83.8 fL (80.0-100.0) 10/17/20 04:16 MCH 27.4 pg (27.0-34.0) 10/17/20 04:16 MCHC 32.7 g/dL (33.0-35.0) L 10/17/20 04:16 RDW 19.7 % (11.6-16.5) H 10/17/20 04:16 Plt Count 258 X10^3/uL (150.0-450.0) 10/17/20 04:16 Plt Count Comment Decreased (ADEQUATE) A 10/12/20 06:09 MPV 7.4 fL (7.4-11.0) 10/17/20 04:16 Neut % (Auto) 88.6 % (42.0-75.0) H 10/17/20 04:16 Lymph % (Auto) 4.8 % (21.0-51.0) L 10/17/20 04:16 [place] % (Auto) 5.2 % (0.0-13.0) 10/17/20 04:16 Eos % (Auto) 1.0 % (0.9-2.9) 10/17/20 04:16 Baso % (Auto) 0.4 % (0.2-1.0) 10/17/20 04:16 Neut # (Auto) 13.8 x10^3/uL (2.2-4.8) H 10/17/20 04:16 Lymph # (Auto) 0.7 X10^3/uL (1.3-2.9) L 10/17/20 04:16 [place] # (Auto) 0.8 x10^3/uL (0.3-0.8) 10/17/20 04:16 Eos # (Auto) 0.2 x10^3/uL (0.0-0.2) 10/17/20 04:16 Baso # (Auto) 0.1 X10^3/uL (0.0-0.1) 10/17/20 04:16 Absolute Nucleated RBC 0.0 /100WBC 10/17/20 04:16 Total Counted 100 10/12/20 06:09 Neutrophils % (Manual) 84 % (39-76) H 10/12/20 06:09 Band Neutrophils % 5 % (0-10) 10/12/20 06:09 Lymphocytes % (Manual) 7 % (13-43) L 10/12/20 06:09 Monocytes % (Manual) 4 % (4-9) 10/12/20 06:09 Plt Morphology Comment Normal (NORMAL) 10/12/20 06:09 RBC Morphology Abnormal (NORMAL) A 10/12/20 06:09 Anisocytosis Slight A 10/12/20 06:09 Target Cells Slight A 10/12/20 06:09 PT 24.0 SECONDS (11.8-14.3) 10/10/20 04:51 INR Target Range - 10/10/20 04:51 INR 2.28 (0.8-1.3) H 10/10/20 04:51 APTT 31.9 SECONDS (22.9-36.5) 10/08/20 14:40 PTT Comment - 10/08/20 14:40 Sodium 146 mmol/L (136-145) H 10/17/20 04:16 Corrected Sodium TNP 10/17/20 04:16 Potassium 3.6 mmol/L (3.5-5.1) 10/17/20 04:16 Chloride 110 mmol/L (98-107) H 10/17/20 04:16 Carbon Dioxide 28.5 mmol/L (21-32) 10/17/20 04:16 BUN 29 mg/dL (7-18) H 10/17/20 04:16 Creatinine 0.98 mg/dL (0.55-1.02) 10/17/20 04:16 Est GFR (MDRD) Af Amer > 60 (>60) 10/17/20 04:16 Est GFR (MDRD) Non-Af 59 (>60) 10/17/20 04:16 Glucose 69 mg/dL (65-99) 10/17/20 04:16 POC Glucose (mg/dL) 56 mg/dL (65-99) L 10/17/20 16:31 Lactic Acid 1.5 mmol/L (0.4-2.0) 10/10/20 04:51 Calcium 8.5 mg/dL (8.5-10.1) 10/17/20 04:16 Corrected Calcium 10.4 mg/dL (8.5-10.1) H 10/17/20 04:16 Magnesium 2.3 mg/dL (1.7-2.9) 10/16/20 04:30 Total Bilirubin 3.00 mg/dL (0.2-1.0) H 10/17/20 04:16 AST 137 Units/L (15-37) H 10/17/20 04:16 ALT 27 Units/L (12-78) 10/17/20 04:16 Alkaline Phosphatase 452 Units/L (46-116) H 10/17/20 04:16 Creatine Kinase 82 Units/L (26-192) 10/08/20 14:40 CK-MB (CK-2) 2.6 ng/mL (0-4.0) 10/08/20 14:40 CK/CKMB % Calc 3.2 % (<4) 10/08/20 14:40 Troponin I < 0.02 ng/mL (0-1.5) 10/08/20 14:40 B-Natriuretic Peptide 572 pg/mL (0-79) H* 10/11/20 05:38 Total Protein 5.7 g/dL (6.4-8.2) L 10/17/20 04:16 Albumin 1.6 g/dL (3.4-5.0) L 10/17/20 04:16 Globulin 4.1 g/dL (2.5-4.5) 10/17/20 04:16 Albumin/Globulin Ratio 0.4 Ratio (1.1-2.1) L 10/17/20 04:16 Triglycerides 85 mg/dL (0-150) 10/09/20 04:29 Cholesterol 128 mg/dL (0-200) 10/09/20 04:29 LDL Cholesterol, Calc 98 mg/dL (0-100) 10/09/20 04:29 HDL Cholesterol 13 mg/dL (40-60) L 10/09/20 04:29 Cholesterol/HDL Ratio 9.8 (0.0-5.0) H 10/09/20 04:29 Stl C. diff Tox B Gene Negative (NEGATIVE) 10/17/20 09:16 Stl C. diff [id number] Presumptive negative (NEGATIVE) 10/17/20 09:16 Vancomycin Trough 27.7 ug/mL (15-20) H* 10/14/20 08:33 SARS-CoV-2 (PCR) Negative (NEGATIVE) 10/08/20 18:04 Influenza Type A (PCR) Negative (NEGATIVE) 10/08/20 18:04 Influenza Type B (PCR) Negative (NEGATIVE) 10/08/20 18:04 RSV (PCR) Negative (NEGATIVE) 10/08/20 18:04 Plan (1) Abdominal distension: Status: Acute (2) Acute exacerbation of CHF (congestive heart failure): Status: Acute Qualifiers: Heart failure type: combined systolic and diastolic Qualified Code(s): I50.43 - Acute on chronic combined systolic (congestive) and diastolic (congestive) heart failure (3) Gram-positive bacteremia: Status: Acute (4) Sepsis: Status: Acute Qualifiers: Sepsis acute organ dysfunction status: without acute organ dysfunction Sepsis type: sepsis due to unspecified organism Qualified Code(s): A41.9 - Sepsis, unspecified organism (5) Sacral decubitus ulcer: Status: Acute Qualifiers: Pressure injury stage: unspecified pressure injury stage Qualified Code(s): L89.159 - Pressure ulcer of sacral region, unspecified stage (6) Generalized weakness: Status: Acute (7) Failure to thrive: Status: Acute Qualifiers: Failure to thrive age range: in adult Qualified Code(s): R62.7 - Adult failure to thrive (8) Protein malnutrition: Status: Acute (9) Fall: Status: Acute Qualifiers: Encounter type: initial encounter Qualified Code(s): W19.XXXA - Unspecified fall, initial encounter (10) Poor hygiene: Status: Acute (11) Immobility: Status: Acute (12) Chronic back pain: Status: Acute Qualifiers: Back pain laterality: unspecified Back pain location: back pain in unspecified location Qualified Code(s): M54.9 - Dorsalgia, unspecified; G89.29 - Other chronic pain (13) Atrial fibrillation: Status: Acute Qualifiers: Atrial fibrillation type: unspecified chronic Qualified Code(s): I48.20 - Chronic atrial fibrillation, unspecified (14) Dilated cardiomyopathy: Status: Acute (15) Transaminitis: Status: Acute (16) Hypokalemia: Status: Acute (17) Medical non-compliance: Status: Acute
--- NOTE | 2020-10-17 17:13 | US ---
ABDOMEN USHISTORY: DISTENTED ABDOMEN, ELVATED AMA. LIPASEComparison: NoneTechnique: Multiple seymour scale and color flow Doppler images of the abdomen were obtained.Findings:Overall study is limited by overlying bowel gas. The liver is nodular. Large volume ascites.. No focal mass. No intrahepatic bile duct dilatation. Gallbladder not seen.No pericholecystic fluid or gallbladder wall thickening. Common bile duct not seen. The spleen is normal in size. The pancreas is obscured by bowel gas .The kidneys are normal in echogenicity. The right kidney measures 8.9 cm. No focal mass, hydronephrosis, or stones identified. The left kidney measures 8.6 cm.No focal mass, hydronephrosis, or stone identified.IMPRESSION:1. Cirrhosis and large volume ascites.Electronically signed by: TANNER WOO (Oct 17, 2020 17:10:48)
[2020-10-18 05:36] LABS: ALANINE AMINOTRANSFERASE 37 Units/L (12-78); ALBUMIN 1.7 g/dL (3.4-5.0); ALKALINE PHOSPHATASE 459 Units/L (46-116); ASPARTATE AMINO TRANSFERASE 169 Units/L (15-37); BLOOD UREA NITROGEN 31 mg/dL (7-18); CARBON DIOXIDE 27.3 mmol/L (21-32); CHLORIDE 108 mmol/L (98-107); CREATININE 1.03 mg/dL (0.55-1.02); SODIUM 144 mmol/L (136-145); TOTAL PROTEIN 6.1 g/dL (6.4-8.2); eGFR NON BLACK RACES 56 (>60)
[2020-10-18] MEDS: ZOSYN VIAL 3.375 GRAMS 3.375 G in NS 50 ML IV + SPIKE MINIBAG* 50 ML IV SCH ×3 (05:36→22:41)
[2020-10-18 06:06] LABS: BASOPHILS # (AUTO) 0.1 X10^3/uL (0.0-0.1); BASOPHILS % (AUTO) 0.4 % (0.2-1.0); EOSINOPHILS # (AUTO) 0.3 x10^3/uL (0.0-0.2); EOSINOPHILS % (AUTO) 1.9 % (0.9-2.9); HEMATOCRIT 38.8 % (36.0-47.0); HEMOGLOBIN 12.3 g/dL (12.0-16.0); LYMPHOCYTES # (AUTO) 0.8 X10^3/uL (1.3-2.9); LYMPHOCYTES % (AUTO) 5.6 % (21.0-51.0); MEAN CORPUSCULAR HEMOGLOBIN 27.3 pg (27.0-34.0); MEAN CORPUSCULAR HGB CONC 31.7 g/dL (33.0-35.0); MEAN PLATELET VOLUME 7.2 fL (7.4-11.0); MONOCYTES # (AUTO) 0.8 x10^3/uL (0.3-0.8); MONOCYTES % (AUTO) 5.7 % (0.0-13.0); NEUTROPHILS # (AUTO) 12.5 x10^3/uL (2.2-4.8); NEUTROPHILS % (AUTO) 86.4 % (42.0-75.0); PLATELET COUNT 248 X10^3/uL (150.0-450.0); RED CELL DISTRIBUTION WIDTH 20.8 % (11.6-16.5); WHITE BLOOD COUNT 14.4 X10^3/uL (3.6-10.0)
[2020-10-18 06:20] LABS: ANISOCYTOSIS 1+; PLATELET MORPHOLOGY COMMENT NORMAL (NORMAL); TARGET CELLS PRESENT
[2020-10-18 06:22] LABS: CALCIUM 8.9 mg/dL (8.5-10.1); COR CA(FOR HYPOALB) 10.7 mg/dL (8.5-10.1)
[2020-10-18] MEDS: LASIX IVP SCH (08:33)
[2020-10-18] MEDS ORDERED: D50W ABBOJECT SYR IV PRN (08:33)
[2020-10-18] MEDS: DUONEB 0.5 MG/3 MG (3 mL) NEB SCH ×4 (09:26→21:06)
[2020-10-18] MEDS: TYLENOL 325 MG TAB PO PRN ×2 (11:00→23:27)
[2020-10-18] MEDS: VSL#3 PO SCH (13:19)
[2020-10-18] MEDS: K-DUR TAB 20 MEQ PO SCH (13:19)
[2020-10-18] MEDS: ALPHAGAN-P OPHTH 1 DOSE EACHEYE SCH ×2 (13:19→22:46)
[2020-10-18] MEDS: CORDARONE TAB 200 MG PO SCH ×2 (13:19→22:45)
[2020-10-18] MEDS: PEPCID TAB 20 MG PO SCH ×2 (13:20→22:45)
[2020-10-18] MEDS: ELIQUIS PO SCH (22:45)
[2020-10-19] MEDS: NAPROSYN PO PRN ×2 (06:40→23:20)
[2020-10-19 07:16] LABS: BASOPHILS # (AUTO) 0.1 X10^3/uL (0.0-0.1); BASOPHILS % (AUTO) 0.6 % (0.2-1.0); EOSINOPHILS # (AUTO) 0.2 x10^3/uL (0.0-0.2); EOSINOPHILS % (AUTO) 1.7 % (0.9-2.9); HEMATOCRIT 37.2 % (36.0-47.0); HEMOGLOBIN 11.9 g/dL (12.0-16.0); LYMPHOCYTES # (AUTO) 0.7 X10^3/uL (1.3-2.9); LYMPHOCYTES % (AUTO) 4.9 % (21.0-51.0); MEAN CORPUSCULAR HEMOGLOBIN 27.5 pg (27.0-34.0); MEAN CORPUSCULAR HGB CONC 32.1 g/dL (33.0-35.0); MEAN CORPUSCULAR VOLUME 85.8 fL (80.0-100.0); MONOCYTES # (AUTO) 0.7 x10^3/uL (0.3-0.8); MONOCYTES % (AUTO) 4.8 % (0.0-13.0); NEUTROPHILS # (AUTO) 12.3 x10^3/uL (2.2-4.8); PLATELET COUNT 257 X10^3/uL (150.0-450.0); RED BLOOD COUNT 4.34 X10^6/uL (3.5-5.4); RED CELL DISTRIBUTION WIDTH 19.7 % (11.6-16.5)
[2020-10-19 07:29] LABS: ALANINE AMINOTRANSFERASE 56 Units/L (12-78); ALBUMIN 1.6 g/dL (3.4-5.0); ALKALINE PHOSPHATASE 445 Units/L (46-116); ASPARTATE AMINO TRANSFERASE 219 Units/L (15-37); BLOOD UREA NITROGEN 31 mg/dL (7-18); CALCIUM 8.9 mg/dL (8.5-10.1); CARBON DIOXIDE 32.8 mmol/L (21-32); CHLORIDE 110 mmol/L (98-107); COR CA(FOR HYPOALB) 10.8 mg/dL (8.5-10.1); CREATININE 1.07 mg/dL (0.55-1.02); SODIUM 147 mmol/L (136-145); eGFR NON BLACK RACES 53 (>60)
[2020-10-19] MEDS: DUONEB 0.5 MG/3 MG (3 mL) NEB SCH ×4 (08:42→20:58)
[2020-10-19] MEDS: VSL#3 PO SCH (09:26)
[2020-10-19] MEDS: ELIQUIS PO SCH ×2 (09:26→21:22)
[2020-10-19] MEDS: K-DUR TAB 20 MEQ PO SCH (09:26)
[2020-10-19] MEDS: PEPCID TAB 20 MG PO SCH ×2 (09:27→21:22)
[2020-10-19] MEDS: CORDARONE TAB 200 MG PO SCH ×2 (09:27→21:19)
[2020-10-19] MEDS: LASIX IVP SCH (09:27)
[2020-10-19] MEDS: ALPHAGAN-P OPHTH 1 DOSE EACHEYE SCH ×2 (10:42→21:19)
--- NOTE | 2020-10-19 13:14 | PCM.PROG ---
Progress Note Progress Note for Day of Date of Exam: 10/18/20 Subjective Subjective: Patient seen at bedside, no acute overnight events. Patient states diarrhea has improved. She continues to not et much. She did drink some apple juice and chocolate milk. She was evaluated by Dr. Pina and refused paracentesis and I&D of her sacral wounds. Patient states she will follow up with her doctor in [place] regarding her liver. She did work with PT a little bit. CM working on discharge planning along with APS. Goals of care discussed with patient and she would like to be FULL code. Labs: Hgb 12.3 WBC: 14.4 K: 3.6 BUN/Cr: 31/1.03 Pelvis MRI: no coccyx fracture noted, no OM. Large volume ascites noted in the lower abdomen. First set of blood Cx: Strep dysgalactiae Repeat blood Cx: negative Wound Cx: Proteus, Providencia and Klebsiella Plan: Continue IV Zosyn. Patient continues to refuse treatment, refused paracentesis and I&D for her sacral wounds. Patient refused PICC or central line placement for nutrition. daily. Encouraged to work with PT/OT as tolerated. Advised patient to drink Ensure if she does not want to eat her other meal. Encouraged PO intake. CM to work on placement. Continue wound care and dressing change, turn patient q2h. Monitor AM labs and imaging Time spent for clinical assessment, reviewing labs/imaging, physical exam, decision making and documentation greater than 75 mins. Past Medical Family Social History Past Med/Fam/Surg Hx: No changes since H&P Allergies: Allergies codeine Allergy (Verified 10/08/20 19:50) orange juice Allergy (Verified 10/17/20 16:49) Review of Systems ROS: No change since H&P Vital Signs and I&O's Vital Signs: Temperature 97.9 F Pulse Rate [Left Radial] 113 Pulse Rate 102 Respiratory Rate 18 Blood Pressure [Right Arm] 107/75 Blood Pressure [Left Arm] 98/63 Blood Pressure 100/73 O2 Sat by Pulse Oximetry 98 Intake and Output: Intake & Output 10/16/20 10/17/20 10/18/20 10/19/20 23:59 23:59 23:59 23:59 Intake Total 1485 / 1485 840 / 840 670 / 670 222 / 222 Balance 1485 / 1485 840 / 840 670 / 670 222 / 222 Physical Exam Oriented: Normal Eyes: Normal Ear: Normal Nose: Normal Throat: Normal Respiratory: Generalized and Diminished Cardiovascular: Normal and Edema (chronic venous stasis and edema 2+ ) Auscultation: Bowel Sounds: Normal Tenderness: Normal and Other (increased distension and rigidity ) Skin: Decreased Turgur, Tender and Wound (sacrul ulcer/wounds, dressing intact. Patient does not want to turn for exam ) Musculoskeletal: Back:Lumbar, Back:Paraspinous and Pelvis Psychiatric: Normal Mood Description: Calm Affect: Normal Speech Pattern: Clear and Appropriate Laboratory and Diagnostics Result Diagrams: 10/19/20 06:55 10/19/20 06:55 Labs: 10/17/20 09:16 Stool Stool Culture - Preliminary 10/17/20 09:16 Stool - Final 10/11/20 09:23 Blood Blood Culture - Final 10/11/20 09:15 Blood Blood Culture - Final 10/08/20 14:50 Blood Blood Culture - Final Streptococcus Dysgalactiae 10/08/20 14:40 Blood Blood Culture - Final Streptococcus Dysgalactiae 10/08/20 15:03 Sacral Wound Gram Stain - Final 10/08/20 15:03 Sacral Wound Culture - Final Providencia Stuartii Klebsiella Pneumoniae Proteus Mirabilis Laboratory WBC 14.0 X10^3/uL (3.6-10.0) H 10/19/20 06:55 RBC 4.34 X10^6/uL (3.5-5.4) 10/19/20 06:55 Hgb 11.9 g/dL (12.0-16.0) L 10/19/20 06:55 Hct 37.2 % (36.0-47.0) 10/19/20 06:55 MCV 85.8 fL (80.0-100.0) 10/19/20 06:55 MCH 27.5 pg (27.0-34.0) 10/19/20 06:55 MCHC 32.1 g/dL (33.0-35.0) L 10/19/20 06:55 RDW 19.7 % (11.6-16.5) H 10/19/20 06:55 Plt Count 257 X10^3/uL (150.0-450.0) 10/19/20 06:55 Plt Count Comment Adequate (ADEQUATE) 10/18/20 04:27 MPV 7.0 fL (7.4-11.0) L 10/19/20 06:55 Neut % (Auto) 88.0 % (42.0-75.0) H 10/19/20 06:55 Lymph % (Auto) 4.9 % (21.0-51.0) L 10/19/20 06:55 [place] % (Auto) 4.8 % (0.0-13.0) 10/19/20 06:55 Eos % (Auto) 1.7 % (0.9-2.9) 10/19/20 06:55 Baso % (Auto) 0.6 % (0.2-1.0) 10/19/20 06:55 Neut # (Auto) 12.3 x10^3/uL (2.2-4.8) H 10/19/20 06:55 Lymph # (Auto) 0.7 X10^3/uL (1.3-2.9) L 10/19/20 06:55 [place] # (Auto) 0.7 x10^3/uL (0.3-0.8) 10/19/20 06:55 Eos # (Auto) 0.2 x10^3/uL (0.0-0.2) 10/19/20 06:55 Baso # (Auto) 0.1 X10^3/uL (0.0-0.1) 10/19/20 06:55 Absolute Nucleated RBC 0.1 /100WBC 10/19/20 06:55 Total Counted 100 10/12/20 06:09 Neutrophils % (Manual) 84 % (39-76) H 10/12/20 06:09 Band Neutrophils % 5 % (0-10) 10/12/20 06:09 Lymphocytes % (Manual) 7 % (13-43) L 10/12/20 06:09 Monocytes % (Manual) 4 % (4-9) 10/12/20 06:09 Plt Morphology Comment Normal (NORMAL) 10/18/20 04:27 RBC Morphology Abnormal (NORMAL) A 10/18/20 04:27 Anisocytosis 1+ A 10/18/20 04:27 Target Cells Present 10/18/20 04:27 PT 24.0 SECONDS (11.8-14.3) 10/10/20 04:51 INR Target Range - 10/10/20 04:51 INR 2.28 (0.8-1.3) H 10/10/20 04:51 APTT 31.9 SECONDS (22.9-36.5) 10/08/20 14:40 PTT Comment - 10/08/20 14:40 Sodium 147 mmol/L (136-145) H 10/19/20 06:55 Corrected Sodium TNP 10/19/20 06:55 Potassium 3.9 mmol/L (3.5-5.1) 10/19/20 06:55 Chloride 110 mmol/L (98-107) H 10/19/20 06:55 Carbon Dioxide 32.8 mmol/L (21-32) H 10/19/20 06:55 BUN 31 mg/dL (7-18) H 10/19/20 06:55 Creatinine 1.07 mg/dL (0.55-1.02) H 10/19/20 06:55 Est GFR (MDRD) Af Amer > 60 (>60) 10/19/20 06:55 Est GFR (MDRD) Non-Af 53 (>60) L 10/19/20 06:55 Glucose 68 mg/dL (65-99) 10/19/20 06:55 POC Glucose (mg/dL) 62 mg/dL (65-99) L 10/19/20 11:42 Lactic Acid 1.5 mmol/L (0.4-2.0) 10/10/20 04:51 Calcium 8.9 mg/dL (8.5-10.1) 10/19/20 06:55 Corrected Calcium 10.8 mg/dL (8.5-10.1) H 10/19/20 06:55 Magnesium 2.3 mg/dL (1.7-2.9) 10/16/20 04:30 Total Bilirubin 2.40 mg/dL (0.2-1.0) H 10/19/20 06:55 AST 219 Units/L (15-37) H 10/19/20 06:55 ALT 56 Units/L (12-78) 10/19/20 06:55 Alkaline Phosphatase 445 Units/L (46-116) H 10/19/20 06:55 Creatine Kinase 82 Units/L (26-192) 10/08/20 14:40 CK-MB (CK-2) 2.6 ng/mL (0-4.0) 10/08/20 14:40 CK/CKMB % Calc 3.2 % (<4) 10/08/20 14:40 Troponin I < 0.02 ng/mL (0-1.5) 10/08/20 14:40 B-Natriuretic Peptide 572 pg/mL (0-79) H* 10/11/20 05:38 Total Protein 6.0 g/dL (6.4-8.2) L 10/19/20 06:55 Albumin 1.6 g/dL (3.4-5.0) L 10/19/20 06:55 Globulin 4.4 g/dL (2.5-4.5) 10/19/20 06:55 Albumin/Globulin Ratio 0.4 Ratio (1.1-2.1) L 10/19/20 06:55 Triglycerides 85 mg/dL (0-150) 10/09/20 04:29 Cholesterol 128 mg/dL (0-200) 10/09/20 04:29 LDL Cholesterol, Calc 98 mg/dL (0-100) 10/09/20 04:29 HDL Cholesterol 13 mg/dL (40-60) L 10/09/20 04:29 Cholesterol/HDL Ratio 9.8 (0.0-5.0) H 10/09/20 04:29 Stl C. diff Tox B Gene Negative (NEGATIVE) 10/17/20 09:16 Stl C. diff [id number] Presumptive negative (NEGATIVE) 10/17/20 09:16 Vancomycin Trough 27.7 ug/mL (15-20) H* 10/14/20 08:33 SARS-CoV-2 (PCR) Negative (NEGATIVE) 10/08/20 18:04 Influenza Type A (PCR) Negative (NEGATIVE) 10/08/20 18:04 Influenza Type B (PCR) Negative (NEGATIVE) 10/08/20 18:04 RSV (PCR) Negative (NEGATIVE) 10/08/20 18:04 Plan (1) Ascites: Status: Acute Qualifiers: Ascites type: other type Qualified Code(s): R18.8 - Other ascites (2) Cirrhosis: Status: Acute Qualifiers: Ascites presence: with ascites Hepatic cirrhosis type: unspecified hepatic cirrhosis Qualified Code(s): K74.60 - Unspecified cirrhosis of liver; R18.8 - Other ascites (3) Abdominal distension: Status: Acute (4) Acute exacerbation of CHF (congestive heart failure): Status: Acute Qualifiers: Heart failure type: combined systolic and diastolic Qualified Code(s): I50.43 - Acute on chronic combined systolic (congestive) and diastolic (congestive) heart failure (5) Gram-positive bacteremia: Status: Acute (6) Sepsis: Status: Acute Qualifiers: Sepsis acute organ dysfunction status: without acute organ dysfunction Sepsis type: sepsis due to unspecified organism Qualified Code(s): A41.9 - Sepsis, unspecified organism (7) Sacral decubitus ulcer: Status: Acute Qualifiers: Pressure injury stage: unspecified pressure injury stage Qualified Code(s): L89.159 - Pressure ulcer of sacral region, unspecified stage (8) Generalized weakness: Status: Acute (9) Failure to thrive: Status: Acute Qualifiers: Failure to thrive age range: in adult Qualified Code(s): R62.7 - Adult failure to thrive (10) Protein malnutrition: Status: Acute (11) Fall: Status: Acute Qualifiers: Encounter type: initial encounter Qualified Code(s): W19.XXXA - Unspecified fall, initial encounter (12) Poor hygiene: Status: Acute (13) Immobility: Status: Acute (14) Chronic back pain: Status: Acute Qualifiers: Back pain laterality: unspecified Back pain location: back pain in unspecified location Qualified Code(s): M54.9 - Dorsalgia, unspecified; G89.29 - Other chronic pain (15) Atrial fibrillation: Status: Acute Qualifiers: Atrial fibrillation type: unspecified chronic Qualified Code(s): I48.20 - Chronic atrial fibrillation, unspecified (16) Dilated cardiomyopathy: Status: Acute (17) Transaminitis: Status: Acute (18) Hypokalemia: Status: Acute (19) Medical non-compliance: Status: Acute
--- NOTE | 2020-10-19 13:27 | PCM.PROG ---
Progress Note Progress Note for Day of Date of Exam: 10/19/20 Subjective Subjective: Patient seen at bedside, no acute overnight events. Patient states she is doing ok. She did work with PT/OT yesterday and states felt better. She continues to refuse paracentesis and I&D for her sacral wounds. Patient states she would like to have that looked at in [place] by her management scientist. She has been drinking chocolate milk and apple juice. She states sometimes It feels like whatever she eats comes up. She also states she has assigned someone as her POA for medical decision making. Labs: Hgb 11.9 WBC 14 BUN/Cr 31/1.07 K: 3.9 Glucose 77 Pelvis MRI: no coccyx fracture noted, no OM. Large volume ascites noted in the lower abdomen. First set of blood Cx: Strep dysgalactiae Repeat blood Cx: negative Wound Cx: Proteus, Providencia and Klebsiella Plan: Continue IV Zosyn. Patient continues to refuse treatment, refused paracentesis and I&D for her sacral wounds. Patient refused PICC or central line placement for nutrition. daily. Encouraged to work with PT/OT as tolerated. Advised patient to drink Ensure if she does not want to eat her other meal. Encouraged PO intake. CM to work on placement. Continue wound care and dressing change, turn patient q2h. Advised patient that we need the documentation regarding her POA. Charge nurse to contact POA and discuss further regarding patient's goals of care. Discussed with patient that due to her poor oral intake, she is continuing to loose weight and decline in her overall health. If patient's nutrition status continues to decline, she has poor prognosis, less than 6 months. Monitor AM labs and imaging Time spent for clinical assessment, reviewing labs/imaging, physical exam, decision making and documentation greater than 75 mins. Past Medical Family Social History Past Med/Fam/Surg Hx: No changes since H&P Allergies: Allergies codeine Allergy (Verified 10/08/20 19:50) orange juice Allergy (Verified 10/17/20 16:49) Review of Systems ROS: No change since H&P Vital Signs and I&O's Vital Signs: Temperature 97.9 F Pulse Rate [Left Radial] 113 Pulse Rate 102 Respiratory Rate 18 Blood Pressure [Right Arm] 107/75 Blood Pressure [Left Arm] 98/63 Blood Pressure 100/73 O2 Sat by Pulse Oximetry 98 Intake and Output: Intake & Output 10/16/20 10/17/20 10/18/20 10/19/20 23:59 23:59 23:59 23:59 Intake Total 1485 / 1485 840 / 840 670 / 670 222 / 222 Balance 1485 / 1485 840 / 840 670 / 670 222 / 222 Physical Exam Oriented: Normal Eyes: Normal Ear: Normal Nose: Normal Throat: Dry Respiratory: Generalized and Diminished Cardiovascular: Normal and Edema (chronic venous stasis and edema 2+ ) Auscultation: Bowel Sounds: Normal Tenderness: Normal and Other (increased distension and rigidity ) Skin: Decreased Turgur, Tender and Wound (sacrul ulcer/wounds, dressing intact. Patient does not want to turn for exam ) Musculoskeletal: Back:Lumbar, Back:Paraspinous and Pelvis Psychiatric: Normal Mood Description: Calm Affect: Normal Speech Pattern: Clear and Appropriate Laboratory and Diagnostics Result Diagrams: 10/19/20 06:55 10/19/20 06:55 Labs: 10/17/20 09:16 Stool Stool Culture - Preliminary 10/17/20 09:16 Stool - Final 10/11/20 09:23 Blood Blood Culture - Final 10/11/20 09:15 Blood Blood Culture - Final 10/08/20 14:50 Blood Blood Culture - Final Streptococcus Dysgalactiae 10/08/20 14:40 Blood Blood Culture - Final Streptococcus Dysgalactiae 10/08/20 15:03 Sacral Wound Gram Stain - Final 10/08/20 15:03 Sacral Wound Culture - Final Providencia Stuartii Klebsiella Pneumoniae Proteus Mirabilis Laboratory WBC 14.0 X10^3/uL (3.6-10.0) H 10/19/20 06:55 RBC 4.34 X10^6/uL (3.5-5.4) 10/19/20 06:55 Hgb 11.9 g/dL (12.0-16.0) L 10/19/20 06:55 Hct 37.2 % (36.0-47.0) 10/19/20 06:55 MCV 85.8 fL (80.0-100.0) 10/19/20 06:55 MCH 27.5 pg (27.0-34.0) 10/19/20 06:55 MCHC 32.1 g/dL (33.0-35.0) L 10/19/20 06:55 RDW 19.7 % (11.6-16.5) H 10/19/20 06:55 Plt Count 257 X10^3/uL (150.0-450.0) 10/19/20 06:55 Plt Count Comment Adequate (ADEQUATE) 10/18/20 04:27 MPV 7.0 fL (7.4-11.0) L 10/19/20 06:55 Neut % (Auto) 88.0 % (42.0-75.0) H 10/19/20 06:55 Lymph % (Auto) 4.9 % (21.0-51.0) L 10/19/20 06:55 [place] % (Auto) 4.8 % (0.0-13.0) 10/19/20 06:55 Eos % (Auto) 1.7 % (0.9-2.9) 10/19/20 06:55 Baso % (Auto) 0.6 % (0.2-1.0) 10/19/20 06:55 Neut # (Auto) 12.3 x10^3/uL (2.2-4.8) H 10/19/20 06:55 Lymph # (Auto) 0.7 X10^3/uL (1.3-2.9) L 10/19/20 06:55 [place] # (Auto) 0.7 x10^3/uL (0.3-0.8) 10/19/20 06:55 Eos # (Auto) 0.2 x10^3/uL (0.0-0.2) 10/19/20 06:55 Baso # (Auto) 0.1 X10^3/uL (0.0-0.1) 10/19/20 06:55 Absolute Nucleated RBC 0.1 /100WBC 10/19/20 06:55 Total Counted 100 10/12/20 06:09 Neutrophils % (Manual) 84 % (39-76) H 10/12/20 06:09 Band Neutrophils % 5 % (0-10) 10/12/20 06:09 Lymphocytes % (Manual) 7 % (13-43) L 10/12/20 06:09 Monocytes % (Manual) 4 % (4-9) 10/12/20 06:09 Plt Morphology Comment Normal (NORMAL) 10/18/20 04:27 RBC Morphology Abnormal (NORMAL) A 10/18/20 04:27 Anisocytosis 1+ A 10/18/20 04:27 Target Cells Present 10/18/20 04:27 PT 24.0 SECONDS (11.8-14.3) 10/10/20 04:51 INR Target Range - 10/10/20 04:51 INR 2.28 (0.8-1.3) H 10/10/20 04:51 APTT 31.9 SECONDS (22.9-36.5) 10/08/20 14:40 PTT Comment - 10/08/20 14:40 Sodium 147 mmol/L (136-145) H 10/19/20 06:55 Corrected Sodium TNP 10/19/20 06:55 Potassium 3.9 mmol/L (3.5-5.1) 10/19/20 06:55 Chloride 110 mmol/L (98-107) H 10/19/20 06:55 Carbon Dioxide 32.8 mmol/L (21-32) H 10/19/20 06:55 BUN 31 mg/dL (7-18) H 10/19/20 06:55 Creatinine 1.07 mg/dL (0.55-1.02) H 10/19/20 06:55 Est GFR (MDRD) Af Amer > 60 (>60) 10/19/20 06:55 Est GFR (MDRD) Non-Af 53 (>60) L 10/19/20 06:55 Glucose 68 mg/dL (65-99) 10/19/20 06:55 POC Glucose (mg/dL) 62 mg/dL (65-99) L 10/19/20 11:42 Lactic Acid 1.5 mmol/L (0.4-2.0) 10/10/20 04:51 Calcium 8.9 mg/dL (8.5-10.1) 10/19/20 06:55 Corrected Calcium 10.8 mg/dL (8.5-10.1) H 10/19/20 06:55 Magnesium 2.3 mg/dL (1.7-2.9) 10/16/20 04:30 Total Bilirubin 2.40 mg/dL (0.2-1.0) H 10/19/20 06:55 AST 219 Units/L (15-37) H 10/19/20 06:55 ALT 56 Units/L (12-78) 10/19/20 06:55 Alkaline Phosphatase 445 Units/L (46-116) H 10/19/20 06:55 Creatine Kinase 82 Units/L (26-192) 10/08/20 14:40 CK-MB (CK-2) 2.6 ng/mL (0-4.0) 10/08/20 14:40 CK/CKMB % Calc 3.2 % (<4) 10/08/20 14:40 Troponin I < 0.02 ng/mL (0-1.5) 10/08/20 14:40 B-Natriuretic Peptide 572 pg/mL (0-79) H* 10/11/20 05:38 Total Protein 6.0 g/dL (6.4-8.2) L 10/19/20 06:55 Albumin 1.6 g/dL (3.4-5.0) L 10/19/20 06:55 Globulin 4.4 g/dL (2.5-4.5) 10/19/20 06:55 Albumin/Globulin Ratio 0.4 Ratio (1.1-2.1) L 10/19/20 06:55 Triglycerides 85 mg/dL (0-150) 10/09/20 04:29 Cholesterol 128 mg/dL (0-200) 10/09/20 04:29 LDL Cholesterol, Calc 98 mg/dL (0-100) 10/09/20 04:29 HDL Cholesterol 13 mg/dL (40-60) L 10/09/20 04:29 Cholesterol/HDL Ratio 9.8 (0.0-5.0) H 10/09/20 04:29 Stl C. diff Tox B Gene Negative (NEGATIVE) 10/17/20 09:16 Stl C. diff [id number] Presumptive negative (NEGATIVE) 10/17/20 09:16 Vancomycin Trough 27.7 ug/mL (15-20) H* 10/14/20 08:33 SARS-CoV-2 (PCR) Negative (NEGATIVE) 10/08/20 18:04 Influenza Type A (PCR) Negative (NEGATIVE) 10/08/20 18:04 Influenza Type B (PCR) Negative (NEGATIVE) 10/08/20 18:04 RSV (PCR) Negative (NEGATIVE) 10/08/20 18:04 Plan (1) Ascites: Status: Acute Qualifiers: Ascites type: other type Qualified Code(s): R18.8 - Other ascites (2) Cirrhosis: Status: Acute Qualifiers: Ascites presence: with ascites Hepatic cirrhosis type: unspecified hepatic cirrhosis Qualified Code(s): K74.60 - Unspecified cirrhosis of liver; R18.8 - Other ascites (3) Abdominal distension: Status: Acute (4) Acute exacerbation of CHF (congestive heart failure): Status: Acute Qualifiers: Heart failure type: combined systolic and diastolic Qualified Code(s): I50.43 - Acute on chronic combined systolic (congestive) and diastolic (congestive) heart failure (5) Gram-positive bacteremia: Status: Acute (6) Sepsis: Status: Acute Qualifiers: Sepsis acute organ dysfunction status: without acute organ dysfunction Sepsis type: sepsis due to unspecified organism Qualified Code(s): A41.9 - Sepsis, unspecified organism (7) Sacral decubitus ulcer: Status: Acute Qualifiers: Pressure injury stage: unspecified pressure injury stage Qualified Code(s): L89.159 - Pressure ulcer of sacral region, unspecified stage (8) Generalized weakness: Status: Acute (9) Failure to thrive: Status: Acute Qualifiers: Failure to thrive age range: in adult Qualified Code(s): R62.7 - Adult failure to thrive (10) Protein malnutrition: Status: Acute (11) Fall: Status: Acute Qualifiers: Encounter type: initial encounter Qualified Code(s): W19.XXXA - Unspecified fall, initial encounter (12) Poor hygiene: Status: Acute (13) Immobility: Status: Acute (14) Chronic back pain: Status: Acute Qualifiers: Back pain laterality: unspecified Back pain location: back pain in unspecified location Qualified Code(s): M54.9 - Dorsalgia, unspecified; G89.29 - Other chronic pain (15) Atrial fibrillation: Status: Acute Qualifiers: Atrial fibrillation type: unspecified chronic Qualified Code(s): I48.20 - Chronic atrial fibrillation, unspecified (16) Dilated cardiomyopathy: Status: Acute (17) Transaminitis: Status: Acute (18) Hypokalemia: Status: Acute (19) Medical non-compliance: Status: Acute
[2020-10-19] MEDS: D5W 1000 ML IV 1,000 ML IV SCH (14:39)
[2020-10-20] MEDS: ATIVAN INJ 2 MG VIAL IVP PRN (00:50)
[2020-10-20] MEDS: D5W 1000 ML IV 1,000 ML IV SCH (03:03)
[2020-10-20] MEDS: TYLENOL 325 MG TAB PO PRN ×2 (05:25→17:38)
[2020-10-20 05:36] LABS: BASOPHILS # (AUTO) 0.1 X10^3/uL (0.0-0.1); BASOPHILS % (AUTO) 0.5 % (0.2-1.0); EOSINOPHILS # (AUTO) 0.2 x10^3/uL (0.0-0.2); EOSINOPHILS % (AUTO) 1.1 % (0.9-2.9); HEMATOCRIT 33.9 % (36.0-47.0); HEMOGLOBIN 10.9 g/dL (12.0-16.0); LYMPHOCYTES # (AUTO) 0.9 X10^3/uL (1.3-2.9); MEAN CORPUSCULAR HEMOGLOBIN 27.4 pg (27.0-34.0); MEAN CORPUSCULAR HGB CONC 32.2 g/dL (33.0-35.0); MEAN CORPUSCULAR VOLUME 85.1 fL (80.0-100.0); MEAN PLATELET VOLUME 7.2 fL (7.4-11.0); MONOCYTES # (AUTO) 0.9 x10^3/uL (0.3-0.8); MONOCYTES % (AUTO) 5.9 % (0.0-13.0); NEUTROPHILS # (AUTO) 12.9 x10^3/uL (2.2-4.8); NEUTROPHILS % (AUTO) 86.5 % (42.0-75.0); PLATELET COUNT 255 X10^3/uL (150.0-450.0); RED BLOOD COUNT 3.98 X10^6/uL (3.5-5.4); RED CELL DISTRIBUTION WIDTH 21.8 % (11.6-16.5)
[2020-10-20 05:50] LABS: ALANINE AMINOTRANSFERASE 39 Units/L (12-78); ALBUMIN 1.5 g/dL (3.4-5.0); ALKALINE PHOSPHATASE 424 Units/L (46-116); ASPARTATE AMINO TRANSFERASE 145 Units/L (15-37); BLOOD UREA NITROGEN 32 mg/dL (7-18); CALCIUM 8.8 mg/dL (8.5-10.1); CHLORIDE 110 mmol/L (98-107); COR CA(FOR HYPOALB) 10.8 mg/dL (8.5-10.1); CREATININE 1.09 mg/dL (0.55-1.02); SODIUM 145 mmol/L (136-145); TOTAL PROTEIN 5.7 g/dL (6.4-8.2); eGFR NON BLACK RACES 52 (>60)
[2020-10-20 06:13] LABS: ANISOCYTOSIS 1+; PLATELET MORPHOLOGY COMMENT NORMAL (NORMAL); TARGET CELLS SLIGHT
[2020-10-20] MEDS: DUONEB 0.5 MG/3 MG (3 mL) NEB SCH ×4 (08:56→20:15)
[2020-10-20] MEDS: PEPCID TAB 20 MG PO SCH ×2 (08:58→21:46)
[2020-10-20] MEDS: CORDARONE TAB 200 MG PO SCH ×2 (08:59→21:43)
[2020-10-20] MEDS: LASIX IVP SCH (08:59)
[2020-10-20] MEDS: ELIQUIS PO SCH ×2 (08:59→21:41)
[2020-10-20] MEDS: VSL#3 PO SCH (08:59)
[2020-10-20] MEDS: K-DUR TAB 20 MEQ PO SCH (08:59)
[2020-10-20] MEDS: ALPHAGAN-P OPHTH 1 DOSE EACHEYE SCH ×3 (09:59→21:47)
--- NOTE | 2020-10-20 12:07 | PCM.PROG ---
Progress Note Progress Note for Day of Date of Exam: 10/20/20 Subjective Subjective: Patient seen at bedside, no acute overnight events. Patient states she is doing ok. She had a visit yesterday, her friend who she has assigned as POA. He brought a burger and patient did eat half. He was also present in the morning prior to rounds but had left prior to my visit. She has been drinking juice and chocolate milk. She continues to refuse paracentesis. She states her abdomen is not as distended today. Patient was started on D5 yesterday at 20cc for 12 hrs. Labs: Hgb 10.9 WBC 15 BUN/Cr 31/1.07 K: 3.9 Glucose 77 Pelvis MRI: no coccyx fracture noted, no OM. Large volume ascites noted in the lower abdomen. First set of blood Cx: Strep dysgalactiae Repeat blood Cx: negative Wound Cx: Proteus, Providencia and Klebsiella Plan: Continue IV Zosyn. Patient continues to refuse treatment, refused paracentesis and I&D for her sacral wounds. Patient refused PICC or central line placement for nutrition. daily. Encouraged to work with PT/OT as tolerated. Advised patient to drink Ensure if she does not want to eat her other meal. Encouraged PO intake. Extensive discussion about oral intake and hypoglycemia. Patient continues to have low FSBG due to not eating as much as she needs to. CM to work on placement. Continue wound care and dressing change, turn patient q2h. Discussed with patient that due to her poor oral intake, she is continuing to loose weight and decline in her overall health. If patient's nutrition status continues to decline, she has poor prognosis, less than 6 months. Monitor AM labs and imaging Time spent for clinical assessment, reviewing labs/imaging, physical exam, decision making and documentation greater than 75 mins. Past Medical Family Social History Past Med/Fam/Surg Hx: No changes since H&P Allergies: Allergies codeine Allergy (Verified 10/08/20 19:50) orange juice Allergy (Verified 10/17/20 16:49) Review of Systems ROS: No change since H&P Vital Signs and I&O's Vital Signs: Temperature 98.0 F Pulse Rate [Left Radial] 107 Pulse Rate 76 Respiratory Rate 16 Blood Pressure [Right Arm] 117/71 Blood Pressure [Left Arm] 98/63 Blood Pressure 100/73 O2 Sat by Pulse Oximetry 93 Intake and Output: Intake & Output 10/17/20 10/18/20 10/19/20 10/20/20 23:59 23:59 23:59 23:59 Intake Total 840 / 840 670 / 670 782 / 782 340 / 340 Balance 840 / 840 670 / 670 782 / 782 340 / 340 Physical Exam Oriented: Normal Eyes: Normal Ear: Normal Nose: Normal Throat: Dry Respiratory: Generalized and Diminished Cardiovascular: Normal and Edema (chronic venous stasis and edema 2+ ) Auscultation: Bowel Sounds: Normal Tenderness: Normal and Other (distended and rigidity ) Skin: Decreased Turgur, Tender and Wound (sacrul ulcer/wounds, dressing intact. Patient does not want to turn for exam ) Musculoskeletal: Back:Lumbar, Back:Paraspinous and Pelvis Psychiatric: Normal Mood Description: Calm Affect: Normal Speech Pattern: Clear and Appropriate Laboratory and Diagnostics Result Diagrams: 10/20/20 04:57 10/20/20 04:57 Labs: 10/17/20 09:16 Stool Stool Culture - Preliminary 10/17/20 09:16 Stool - Final 10/11/20 09:23 Blood Blood Culture - Final 10/11/20 09:15 Blood Blood Culture - Final 10/08/20 14:50 Blood Blood Culture - Final Streptococcus Dysgalactiae 10/08/20 14:40 Blood Blood Culture - Final Streptococcus Dysgalactiae 10/08/20 15:03 Sacral Wound Gram Stain - Final 10/08/20 15:03 Sacral Wound Culture - Final Providencia Stuartii Klebsiella Pneumoniae Proteus Mirabilis Laboratory WBC 15.0 X10^3/uL (3.6-10.0) H 10/20/20 04:57 RBC 3.98 X10^6/uL (3.5-5.4) 10/20/20 04:57 Hgb 10.9 g/dL (12.0-16.0) L 10/20/20 04:57 Hct 33.9 % (36.0-47.0) L 10/20/20 04:57 MCV 85.1 fL (80.0-100.0) 10/20/20 04:57 MCH 27.4 pg (27.0-34.0) 10/20/20 04:57 MCHC 32.2 g/dL (33.0-35.0) L 10/20/20 04:57 RDW 21.8 % (11.6-16.5) H 10/20/20 04:57 Plt Count 255 X10^3/uL (150.0-450.0) 10/20/20 04:57 Plt Count Comment Adequate (ADEQUATE) 10/20/20 04:57 MPV 7.2 fL (7.4-11.0) L 10/20/20 04:57 Neut % (Auto) 86.5 % (42.0-75.0) H 10/20/20 04:57 Lymph % (Auto) 6.0 % (21.0-51.0) L 10/20/20 04:57 [place] % (Auto) 5.9 % (0.0-13.0) 10/20/20 04:57 Eos % (Auto) 1.1 % (0.9-2.9) 10/20/20 04:57 Baso % (Auto) 0.5 % (0.2-1.0) 10/20/20 04:57 Neut # (Auto) 12.9 x10^3/uL (2.2-4.8) H 10/20/20 04:57 Lymph # (Auto) 0.9 X10^3/uL (1.3-2.9) L 10/20/20 04:57 [place] # (Auto) 0.9 x10^3/uL (0.3-0.8) H 10/20/20 04:57 Eos # (Auto) 0.2 x10^3/uL (0.0-0.2) 10/20/20 04:57 Baso # (Auto) 0.1 X10^3/uL (0.0-0.1) 10/20/20 04:57 Absolute Nucleated RBC 0.0 /100WBC 10/20/20 04:57 Total Counted 100 10/12/20 06:09 Neutrophils % (Manual) 84 % (39-76) H 10/12/20 06:09 Band Neutrophils % 5 % (0-10) 10/12/20 06:09 Lymphocytes % (Manual) 7 % (13-43) L 10/12/20 06:09 Monocytes % (Manual) 4 % (4-9) 10/12/20 06:09 Plt Morphology Comment Normal (NORMAL) 10/20/20 04:57 RBC Morphology Abnormal (NORMAL) A 10/20/20 04:57 Anisocytosis 1+ A 10/20/20 04:57 Target Cells Slight A 10/20/20 04:57 PT 24.0 SECONDS (11.8-14.3) 10/10/20 04:51 INR Target Range - 10/10/20 04:51 INR 2.28 (0.8-1.3) H 10/10/20 04:51 APTT 31.9 SECONDS (22.9-36.5) 10/08/20 14:40 PTT Comment - 10/08/20 14:40 Sodium 145 mmol/L (136-145) 10/20/20 04:57 Corrected Sodium TNP 10/20/20 04:57 Potassium 4.0 mmol/L (3.5-5.1) 10/20/20 04:57 Chloride 110 mmol/L (98-107) H 10/20/20 04:57 Carbon Dioxide 29.0 mmol/L (21-32) 10/20/20 04:57 BUN 32 mg/dL (7-18) H 10/20/20 04:57 Creatinine 1.09 mg/dL (0.55-1.02) H 10/20/20 04:57 Est GFR (MDRD) Af Amer > 60 (>60) 10/20/20 04:57 Est GFR (MDRD) Non-Af 52 (>60) L 10/20/20 04:57 Glucose 70 mg/dL (65-99) 10/20/20 04:57 POC Glucose (mg/dL) 71 mg/dL (65-99) 10/20/20 05:38 Lactic Acid 1.5 mmol/L (0.4-2.0) 10/10/20 04:51 Calcium 8.8 mg/dL (8.5-10.1) 10/20/20 04:57 Corrected Calcium 10.8 mg/dL (8.5-10.1) H 10/20/20 04:57 Magnesium 2.3 mg/dL (1.7-2.9) 10/16/20 04:30 Total Bilirubin 2.40 mg/dL (0.2-1.0) H 10/20/20 04:57 AST 145 Units/L (15-37) H 10/20/20 04:57 ALT 39 Units/L (12-78) 10/20/20 04:57 Alkaline Phosphatase 424 Units/L (46-116) H 10/20/20 04:57 Creatine Kinase 82 Units/L (26-192) 10/08/20 14:40 CK-MB (CK-2) 2.6 ng/mL (0-4.0) 10/08/20 14:40 CK/CKMB % Calc 3.2 % (<4) 10/08/20 14:40 Troponin I < 0.02 ng/mL (0-1.5) 10/08/20 14:40 B-Natriuretic Peptide 572 pg/mL (0-79) H* 10/11/20 05:38 Total Protein 5.7 g/dL (6.4-8.2) L 10/20/20 04:57 Albumin 1.5 g/dL (3.4-5.0) L 10/20/20 04:57 Globulin 4.2 g/dL (2.5-4.5) 10/20/20 04:57 Albumin/Globulin Ratio 0.4 Ratio (1.1-2.1) L 10/20/20 04:57 Triglycerides 85 mg/dL (0-150) 10/09/20 04:29 Cholesterol 128 mg/dL (0-200) 10/09/20 04:29 LDL Cholesterol, Calc 98 mg/dL (0-100) 10/09/20 04:29 HDL Cholesterol 13 mg/dL (40-60) L 10/09/20 04:29 Cholesterol/HDL Ratio 9.8 (0.0-5.0) H 10/09/20 04:29 Stl C. diff Tox B Gene Negative (NEGATIVE) 10/17/20 09:16 Stl C. diff [id number] Presumptive negative (NEGATIVE) 10/17/20 09:16 Vancomycin Trough 27.7 ug/mL (15-20) H* 10/14/20 08:33 SARS-CoV-2 (PCR) Negative (NEGATIVE) 10/08/20 18:04 Influenza Type A (PCR) Negative (NEGATIVE) 10/08/20 18:04 Influenza Type B (PCR) Negative (NEGATIVE) 10/08/20 18:04 RSV (PCR) Negative (NEGATIVE) 10/08/20 18:04 Plan (1) Ascites: Status: Acute Qualifiers: Ascites type: other type Qualified Code(s): R18.8 - Other ascites (2) Cirrhosis: Status: Acute Qualifiers: Ascites presence: with ascites Hepatic cirrhosis type: unspecified hepatic cirrhosis Qualified Code(s): K74.60 - Unspecified cirrhosis of liver; R18.8 - Other ascites (3) Abdominal distension: Status: Acute (4) Acute exacerbation of CHF (congestive heart failure): Status: Acute Qualifiers: Heart failure type: combined systolic and diastolic Qualified Code(s): I50.43 - Acute on chronic combined systolic (congestive) and diastolic (co ngestive) heart failure (5) Gram-positive bacteremia: Status: Acute (6) Sepsis: Status: Acute Qualifiers: Sepsis acute organ dysfunction status: without acute organ dysfunction Sepsis type: sepsis due to unspecified organism Qualified Code(s): A41.9 - Sepsis, unspecified organism (7) Sacral decubitus ulcer: Status: Acute Qualifiers: Pressure injury stage: unspecified pressure injury stage Qualified Code(s): L89.159 - Pressure ulcer of sacral region, unspecified stage (8) Generalized weakness: Status: Acute (9) Failure to thrive: Status: Acute Qualifiers: Failure to thrive age range: in adult Qualified Code(s): R62.7 - Adult failure to thrive (10) Protein malnutrition: Status: Acute (11) Fall: Status: Acute Qualifiers: Encounter type: initial encounter Qualified Code(s): W19.XXXA - Unspecified fall, initial encounter (12) Poor hygiene: Status: Acute (13) Immobility: Status: Acute (14) Chronic back pain: Status: Acute Qualifiers: Back pain laterality: unspecified Back pain location: back pain in unspecified location Qualified Code(s): M54.9 - Dorsalgia, unspecified; G89.29 - Other chronic pain (15) Atrial fibrillation: Status: Acute Qualifiers: Atrial fibrillation type: unspecified chronic Qualified Code(s): I48.20 - Chronic atrial fibrillation, unspecified (16) Dilated cardiomyopathy: Status: Acute (17) Transaminitis: Status: Acute (18) Hypokalemia: Status: Acute (19) Medical non-compliance: Status: Acute
[2020-10-20] MEDS ORDERED: TORADOL 15 MG VIAL IVP PRN (19:45)
[2020-10-21] MEDS: TYLENOL 325 MG TAB PO PRN ×2 (07:47→23:42)
[2020-10-21] MEDS: PEPCID TAB 20 MG PO SCH ×2 (08:16→21:00)
[2020-10-21] MEDS: VSL#3 PO SCH (08:16)
[2020-10-21] MEDS: CORDARONE TAB 200 MG PO SCH ×2 (08:18→21:02)
[2020-10-21] MEDS: ELIQUIS PO SCH ×2 (08:20→21:00)
[2020-10-21] MEDS: LASIX IVP SCH (08:37)
[2020-10-21] MEDS: ALPHAGAN-P OPHTH 1 DOSE EACHEYE SCH ×2 (08:37→21:01)
[2020-10-21] MEDS: K-DUR TAB 20 MEQ PO SCH (08:37)
[2020-10-21] MEDS: DUONEB 0.5 MG/3 MG (3 mL) NEB SCH ×4 (09:04→20:25)
[2020-10-21] MEDS: NAPROSYN PO PRN (13:05)
--- NOTE | 2020-10-21 15:58 | PCM.PROG ---
Progress Note Progress Note for Day of Date of Exam: 10/21/20 Subjective Subjective: Patient seen at bedside, patient refused morning labs and vitals. She also lost her IV access and refused to have another one placed. Patient seems to be irritable during rounds and refusing everything. She states her phone is not working and she is trying to get in touch with her POA. She has not eaten much but has been drinking some apple juice. She refused finger stick this morning. Patient also refused to work with therapy. Pelvis MRI: no coccyx fracture noted, no OM. Large volume ascites noted in the lower abdomen. First set of blood Cx: Strep dysgalactiae Repeat blood Cx: negative Wound Cx: Proteus, Providencia and Klebsiella Plan: Patient refusing labs and vitals. Patient refusing to have IV access. CM to get in touch with patient's POA and discuss further discharge planning. APS also involved and CM discussing patient's care plans with them. Patient continu es to refuse treatment, refused paracentesis and I&D for her sacral wounds. Patient refused PICC or central line placement for nutrition. Encouraged to work with PT/OT as tolerated. Advised patient to drink Ensure if she does not want to eat her other meal. Encouraged PO intake. Extensive discussion about oral intake and hypoglycemia. Patient continues to have low FSBG due to not eating as much as she needs to. Continue wound care and dressing change, turn patient q2h. Discussed with patient that due to her poor oral intake, she is continuing to loose weight and decline in her overall health. If patient's nutrition status continues to decline, she has poor prognosis, less than 6 months. Monitor AM labs and imaging. Time spent for clinical assessment, reviewing labs/imaging, physical exam, decision making and documentation greater than 75 mins. Past Medical Family Social History Past Med/Fam/Surg Hx: No changes since H&P Allergies: Allergies codeine Allergy (Verified 10/08/20 19:50) orange juice Allergy (Verified 10/17/20 16:49) Review of Systems ROS: No change since H&P Vital Signs and I&O's Vital Signs: Temperature 98.3 F Pulse Rate [Left Radial] 97 Pulse Rate 98 Respiratory Rate 20 Blood Pressure [Right Arm] 114/72 Blood Pressure [Left Arm] 102/63 Blood Pressure 100/73 O2 Sat by Pulse Oximetry 97 Intake and Output: Intake & Output 10/18/20 10/19/20 10/20/20 10/21/20 23:59 23:59 23:59 23:59 Intake Total 670 / 670 782 / 782 620 / 620 438 / 438 Balance 670 / 670 782 / 782 620 / 620 438 / 438 Physical Exam Oriented: Normal Eyes: Normal Ear: Normal Nose: Normal Throat: Dry Respiratory: Generalized and Diminished Cardiovascular: Normal and Edema (chronic venous stasis and edema 2+ ) Auscultation: Bowel Sounds: Normal Tenderness: Normal and Other (distended and rigidity ) Skin: Decreased Turgur and Wound (sacrul ulcer/wounds, dressing intact. Patient does not want to turn for exam ) Musculoskeletal: Back:Lumbar, Back:Paraspinous and Pelvis Psychiatric: Agitation Mood Description: Hostile Affect: Angry Speech Pattern: Clear and Appropriate Laboratory and Diagnostics Result Diagrams: 10/20/20 04:57 10/20/20 04:57 Labs: 10/17/20 09:16 Stool Stool Culture - Final 10/17/20 09:16 Stool - Final 10/11/20 09:23 Blood Blood Culture - Final 10/11/20 09:15 Blood Blood Culture - Final 10/08/20 14:50 Blood Blood Culture - Final Streptococcus Dysgalactiae 10/08/20 14:40 Blood Blood Culture - Final Streptococcus Dysgalactiae 10/08/20 15:03 Sacral Wound Gram Stain - Final 10/08/20 15:03 Sacral Wound Culture - Final Providencia Stuartii Klebsiella Pneumoniae Proteus Mirabilis Laboratory WBC 15.0 X10^3/uL (3.6-10.0) H 10/20/20 04:57 RBC 3.98 X10^6/uL (3.5-5.4) 10/20/20 04:57 Hgb 10.9 g/dL (12.0-16.0) L 10/20/20 04:57 Hct 33.9 % (36.0-47.0) L 10/20/20 04:57 MCV 85.1 fL (80.0-100.0) 10/20/20 04:57 MCH 27.4 pg (27.0-34.0) 10/20/20 04:57 MCHC 32.2 g/dL (33.0-35.0) L 10/20/20 04:57 RDW 21.8 % (11.6-16.5) H 10/20/20 04:57 Plt Count 255 X10^3/uL (150.0-450.0) 10/20/20 04:57 Plt Count Comment Adequate (ADEQUATE) 10/20/20 04:57 MPV 7.2 fL (7.4-11.0) L 10/20/20 04:57 Neut % (Auto) 86.5 % (42.0-75.0) H 10/20/20 04:57 Lymph % (Auto) 6.0 % (21.0-51.0) L 10/20/20 04:57 [place] % (Auto) 5.9 % (0.0-13.0) 10/20/20 04:57 Eos % (Auto) 1.1 % (0.9-2.9) 10/20/20 04:57 Baso % (Auto) 0.5 % (0.2-1.0) 10/20/20 04:57 Neut # (Auto) 12.9 x10^3/uL (2.2-4.8) H 10/20/20 04:57 Lymph # (Auto) 0.9 X10^3/uL (1.3-2.9) L 10/20/20 04:57 [place] # (Auto) 0.9 x10^3/uL (0.3-0.8) H 10/20/20 04:57 Eos # (Auto) 0.2 x10^3/uL (0.0-0.2) 10/20/20 04:57 Baso # (Auto) 0.1 X10^3/uL (0.0-0.1) 10/20/20 04:57 Absolute Nucleated RBC 0.0 /100WBC 10/20/20 04:57 Total Counted 100 10/12/20 06:09 Neutrophils % (Manual) 84 % (39-76) H 10/12/20 06:09 Band Neutrophils % 5 % (0-10) 10/12/20 06:09 Lymphocytes % (Manual) 7 % (13-43) L 10/12/20 06:09 Monocytes % (Manual) 4 % (4-9) 10/12/20 06:09 Plt Morphology Comment Normal (NORMAL) 10/20/20 04:57 RBC Morphology Abnormal (NORMAL) A 10/20/20 04:57 Anisocytosis 1+ A 10/20/20 04:57 Target Cells Slight A 10/20/20 04:57 PT 24.0 SECONDS (11.8-14.3) 10/10/20 04:51 INR Target Range - 10/10/20 04:51 INR 2.28 (0.8-1.3) H 10/10/20 04:51 APTT 31.9 SECONDS (22.9-36.5) 10/08/20 14:40 PTT Comment - 10/08/20 14:40 Sodium 145 mmol/L (136-145) 10/20/20 04:57 Corrected Sodium TNP 10/20/20 04:57 Potassium 4.0 mmol/L (3.5-5.1) 10/20/20 04:57 Chloride 110 mmol/L (98-107) H 10/20/20 04:57 Carbon Dioxide 29.0 mmol/L (21-32) 10/20/20 04:57 BUN 32 mg/dL (7-18) H 10/20/20 04:57 Creatinine 1.09 mg/dL (0.55-1.02) H 10/20/20 04:57 Est GFR (MDRD) Af Amer > 60 (>60) 10/20/20 04:57 Est GFR (MDRD) Non-Af 52 (>60) L 10/20/20 04:57 Glucose 70 mg/dL (65-99) 10/20/20 04:57 POC Glucose (mg/dL) 72 mg/dL (65-99) 10/21/20 14:44 Lactic Acid 1.5 mmol/L (0.4-2.0) 10/10/20 04:51 Calcium 8.8 mg/dL (8.5-10.1) 10/20/20 04:57 Corrected Calcium 10.8 mg/dL (8.5-10.1) H 10/20/20 04:57 Magnesium 2.3 mg/dL (1.7-2.9) 10/16/20 04:30 Total Bilirubin 2.40 mg/dL (0.2-1.0) H 10/20/20 04:57 AST 145 Units/L (15-37) H 10/20/20 04:57 ALT 39 Units/L (12-78) 10/20/20 04:57 Alkaline Phosphatase 424 Units/L (46-116) H 10/20/20 04:57 Creatine Kinase 82 Units/L (26-192) 10/08/20 14:40 CK-MB (CK-2) 2.6 ng/mL (0-4.0) 10/08/20 14:40 CK/CKMB % Calc 3.2 % (<4) 10/08/20 14:40 Troponin I < 0.02 ng/mL (0-1.5) 10/08/20 14:40 B-Natriuretic Peptide 572 pg/mL (0-79) H* 10/11/20 05:38 Total Protein 5.7 g/dL (6.4-8.2) L 10/20/20 04:57 Albumin 1.5 g/dL (3.4-5.0) L 10/20/20 04:57 Globulin 4.2 g/dL (2.5-4.5) 10/20/20 04:57 Albumin/Globulin Ratio 0.4 Ratio (1.1-2.1) L 10/20/20 04:57 Triglycerides 85 mg/dL (0-150) 10/09/20 04:29 Cholesterol 128 mg/dL (0-200) 10/09/20 04:29 LDL Cholesterol, Calc 98 mg/dL (0-100) 10/09/20 04:29 HDL Cholesterol 13 mg/dL (40-60) L 10/09/20 04:29 Cholesterol/HDL Ratio 9.8 (0.0-5.0) H 10/09/20 04:29 Stl C. diff Tox B Gene Negative (NEGATIVE) 10/17/20 09:16 Stl C. diff [id number] Presumptive negative (NEGATIVE) 10/17/20 09:16 Vancomycin Trough 27.7 ug/mL (15-20) H* 10/14/20 08:33 SARS-CoV-2 (PCR) Negative (NEGATIVE) 10/08/20 18:04 Influenza Type A (PCR) Negative (NEGATIVE) 10/08/20 18:04 Influenza Type B (PCR) Negative (NEGATIVE) 10/08/20 18:04 RSV (PCR) Negative (NEGATIVE) 10/08/20 18:04 Plan (1) Ascites: Status: Acute Qualifiers: Ascites type: other type Qualified Code(s): R18.8 - Other ascites (2) Cirrhosis: Status: Acute Qualifiers: Ascites presence: with ascites Hepatic cirrhosis type: unspecified hepatic cirrhosis Qualified Code(s): K74.60 - Unspecified cirrhosis of liver; R18.8 - Other ascites (3) Abdominal distension: Status: Acute (4) Acute exacerbation of CHF (congestive heart failure): Status: Acute Qualifiers: Heart failure type: combined systolic and diastolic Qualified Code(s): I50.43 - Acute on chronic combined systolic (congestive) and diastolic (congestive) heart failure (5) Gram-positive bacteremia: Status: Acute (6) Sepsis: Status: Acute Qualifiers: Sepsis acute organ dysfunction status: without acute organ dysfunction Sepsis type: sepsis due to unspecified organism Qualified Code(s): A41.9 - Sepsis, unspecified organism (7) Sacral decubitus ulcer: Status: Acute Qualifiers: Pressure injury stage: unspecified pressure injury stage Qualified Code(s): L89.159 - Pressure ulcer of sacral region, unspecified stage (8) Generalized weakness: Status: Acute (9) Failure to thrive: Status: Acute Qualifiers: Failure to thrive age range: in adult Qualified Code(s): R62.7 - Adult failure to thrive (10) Protein malnutrition: Status: Acute (11) Fall: Status: Acute Qualifiers: Encounter type: initial encounter Qualified Code(s): W19.XXXA - Unspecified fall, initial encounter (12) Poor hygiene: Status: Acute (13) Immobility: Status: Acute (14) Chronic back pain: Status: Acute Qualifiers: Back pain laterality: unspecified Back pain location: back pain in unspecified location Qualified Code(s): M54.9 - Dorsalgia, unspecified; G89.29 - Other chronic pain (15) Atrial fibrillation: Status: Acute Qualifiers: Atrial fibrillation type: unspecified chronic Qualified Code(s): I48.20 - Chronic atrial fibrillation, unspecified (16) Dilated cardiomyopathy: Status: Acute (17) Transaminitis: Status: Acute (18) Hypokalemia: Status: Acute (19) Medical non-compliance: Status: Acute
[2020-10-21] MEDS ORDERED: D5W 1000 ML IV 1,000 ML IV ONE (19:30)
[2020-10-22] MEDS: NAPROSYN PO PRN (03:05)
[2020-10-22] MEDS: ATIVAN INJ 2 MG VIAL IVP PRN ×2 (04:00→09:30)
[2020-10-22 07:59] VITALS: BP 94/64
[2020-10-22] MEDS: ALPHAGAN-P OPHTH 1 DOSE EACHEYE SCH (08:29)
[2020-10-22] MEDS: ELIQUIS PO SCH (08:31)
[2020-10-22] MEDS: CORDARONE TAB 200 MG PO SCH (08:31)
[2020-10-22] MEDS: K-DUR TAB 20 MEQ PO SCH (08:32)
[2020-10-22] MEDS: VSL#3 PO SCH (08:32)
[2020-10-22] MEDS: PEPCID TAB 20 MG PO SCH (08:32)
[2020-10-22] MEDS: LASIX IVP SCH (08:32)
[2020-10-22] MEDS ORDERED: ATIVAN TAB 1 MG PO ONE (10:01)
--- NOTE | 2020-10-22 10:23 | W.DIS.FURT ---
Summary of Discharge Admission Diagnosis Vital Signs: Vital Signs (72 hours) 10/19/20 12:00 10/19/20 16:00 10/19/20 20:00 Temperature 97.9 F 98.3 F 98.3 F Pulse Rate Pulse Rate [Left Radial] 113 H 105 H 107 H Respiratory Rate 18 18 19 Blood Pressure [Left Arm] Blood Pressure [Right Arm] 107/75 114/68 101/56 O2 Sat by Pulse Oximetry 98 92 L 95 10/19/20 22:00 10/20/20 00:00 10/20/20 04:00 Temperature 98.0 F 98.5 F Pulse Rate 107 H Pulse Rate [Left Radial] 103 H 105 H Respiratory Rate 20 18 Blood Pressure [Left Arm] Blood Pressure [Right Arm] 124/74 130/70 O2 Sat by Pulse Oximetry 95 97 95 10/20/20 05:25 10/20/20 06:24 10/20/20 08:00 Temperature 98.0 F Pulse Rate Pulse Rate [Left Radial] 107 H Respiratory Rate 20 18 16 Blood Pressure [Left Arm] Blood Pressure [Right Arm] 117/71 O2 Sat by Pulse Oximetry 91 L 10/20/20 08:56 10/20/20 12:00 10/20/20 16:00 Temperature 98.2 F 98.0 F Pulse Rate 76 Pulse Rate [Left Radial] 104 H 107 H Respiratory Rate 18 16 Blood Pressure [Left Arm] Blood Pressure [Right Arm] 127/69 117/71 O2 Sat by Pulse Oximetry 93 L 96 91 L 10/20/20 17:38 10/20/20 18:38 10/20/20 20:00 Temperature 98.2 F Pulse Rate Pulse Rate [Left Radial] 105 H Respiratory Rate 18 18 20 Blood Pressure [Left Arm] Blood Pressure [Right Arm] 112/70 O2 Sat by Pulse Oximetry 97 10/20/20 20:15 10/20/20 23:59 10/21/20 04:00 Temperature 97.8 F 98 F Pulse Rate 73 Pulse Rate [Left Radial] 109 H 94 H Respiratory Rate 20 18 Blood Pressure [Left Arm] 102/63 Blood Pressure [Right Arm] 125/61 O2 Sat by Pulse Oximetry 94 L 100 10/21/20 07:47 10/21/20 08:00 10/21/20 08:47 Temperature 98.3 F Pulse Rate Pulse Rate [Left Radial] 97 H Respiratory Rate 17 20 20 Blood Pressure [Left Arm] Blood Pressure [Right Arm] 114/72 O2 Sat by Pulse Oximetry 96 10/21/20 09:04 10/21/20 16:00 10/21/20 17:07 Temperature 98.1 F Pulse Rate 98 H Pulse Rate [Left Radial] 110 H Respiratory Rate 30 H 20 Blood Pressure [Left Arm] Blood Pressure [Right Arm] 118/62 O2 Sat by Pulse Oximetry 97 94 L 10/21/20 17:37 10/21/20 20:00 10/21/20 20:20 Temperature 97.8 F Pulse Rate 70 Pulse Rate [Left Radial] 113 H Respiratory Rate 20 18 Blood Pressure [Left Arm] 114/75 Blood Pressure [Right Arm] O2 Sat by Pulse Oximetry 99 96 10/21/20 23:42 10/22/20 00:00 10/22/20 00:42 Temperature 98.3 F Pulse Rate Pulse Rate [Left Radial] 113 H Respiratory Rate 18 20 18 Blood Pressure [Left Arm] 117/59 Blood Pressure [Right Arm] O2 Sat by Pulse Oximetry 96 10/22/20 04:00 10/22/20 07:56 Temperature 97.6 F 97.7 F Pulse Rate Pulse Rate [Left Radial] 108 H 116 H Respiratory Rate 22 22 Blood Pressure [Left Arm] 144/68 Blood Pressure [Right Arm] 94/64 O2 Sat by Pulse Oximetry 98 97 Labs: Laboratory Last Values WBC 15.0 X10^3/uL (3.6-10.0) H 10/20/20 04:57 RBC 3.98 X10^6/uL (3.5-5.4) 10/20/20 04:57 Hgb 10.9 g/dL (12.0-16.0) L 10/20/20 04:57 Hct 33.9 % (36.0-47.0) L 10/20/20 04:57 MCV 85.1 fL (80.0-100.0) 10/20/20 04:57 MCH 27.4 pg (27.0-34.0) 10/20/20 04:57 MCHC 32.2 g/dL (33.0-35.0) L 10/20/20 04:57 RDW 21.8 % (11.6-16.5) H 10/20/20 04:57 Plt Count 255 X10^3/uL (150.0-450.0) 10/20/20 04:57 Plt Count Comment Adequate (ADEQUATE) 10/20/20 04:57 MPV 7.2 fL (7.4-11.0) L 10/20/20 04:57 Neut % (Auto) 86.5 % (42.0-75.0) H 10/20/20 04:57 Lymph % (Auto) 6.0 % (21.0-51.0) L 10/20/20 04:57 [place] % (Auto) 5.9 % (0.0-13.0) 10/20/20 04:57 Eos % (Auto) 1.1 % (0.9-2.9) 10/20/20 04:57 Baso % (Auto) 0.5 % (0.2-1.0) 10/20/20 04:57 Neut # (Auto) 12.9 x10^3/uL (2.2-4.8) H 10/20/20 04:57 Lymph # (Auto) 0.9 X10^3/uL (1.3-2.9) L 10/20/20 04:57 [place] # (Auto) 0.9 x10^3/uL (0.3-0.8) H 10/20/20 04:57 Eos # (Auto) 0.2 x10^3/uL (0.0-0.2) 10/20/20 04:57 Baso # (Auto) 0.1 X10^3/uL (0.0-0.1) 10/20/20 04:57 Absolute Nucleated RBC 0.0 /100WBC 10/20/20 04:57 Total Counted 100 10/12/20 06:09 Neutrophils % (Manual) 84 % (39-76) H 10/12/20 06:09 Band Neutrophils % 5 % (0-10) 10/12/20 06:09 Lymphocytes % (Manual) 7 % (13-43) L 10/12/20 06:09 Monocytes % (Manual) 4 % (4-9) 10/12/20 06:09 Plt Morphology Comment Normal (NORMAL) 10/20/20 04:57 RBC Morphology Abnormal (NORMAL) A 10/20/20 04:57 Anisocytosis 1+ A 10/20/20 04:57 Target Cells Slight A 10/20/20 04:57 PT 24.0 SECONDS (11.8-14.3) 10/10/20 04:51 INR Target Range - 10/10/20 04:51 INR 2.28 (0.8-1.3) H 10/10/20 04:51 APTT 31.9 SECONDS (22.9-36.5) 10/08/20 14:40 PTT Comment - 10/08/20 14:40 Sodium 145 mmol/L (136-145) 10/20/20 04:57 Corrected Sodium TNP 10/20/20 04:57 Potassium 4.0 mmol/L (3.5-5.1) 10/20/20 04:57 Chloride 110 mmol/L (98-107) H 10/20/20 04:57 Carbon Dioxide 29.0 mmol/L (21-32) 10/20/20 04:57 BUN 32 mg/dL (7-18) H 10/20/20 04:57 Creatinine 1.09 mg/dL (0.55-1.02) H 10/20/20 04:57 Est GFR (MDRD) Af Amer > 60 (>60) 10/20/20 04:57 Est GFR (MDRD) Non-Af 52 (>60) L 10/20/20 04:57 Glucose 70 mg/dL (65-99) 10/20/20 04:57 POC Glucose (mg/dL) 92 mg/dL (65-99) 10/22/20 05:56 Lactic Acid 1.5 mmol/L (0.4-2.0) 10/10/20 04:51 Calcium 8.8 mg/dL (8.5-10.1) 10/20/20 04:57 Corrected Calcium 10.8 mg/dL (8.5-10.1) H 10/20/20 04:57 Magnesium 2.3 mg/dL (1.7-2.9) 10/16/20 04:30 Total Bilirubin 2.40 mg/dL (0.2-1.0) H 10/20/20 04:57 AST 145 Units/L (15-37) H 10/20/20 04:57 ALT 39 Units/L (12-78) 10/20/20 04:57 Alkaline Phosphatase 424 Units/L (46-116) H 10/20/20 04:57 Creatine Kinase 82 Units/L (26-192) 10/08/20 14:40 CK-MB (CK-2) 2.6 ng/mL (0-4.0) 10/08/20 14:40 CK/CKMB % Calc 3.2 % (<4) 10/08/20 14:40 Troponin I < 0.02 ng/mL (0-1.5) 10/08/20 14:40 B-Natriuretic Peptide 572 pg/mL (0-79) H* 10/11/20 05:38 Total Protein 5.7 g/dL (6.4-8.2) L 10/20/20 04:57 Albumin 1.5 g/dL (3.4-5.0) L 10/20/20 04:57 Globulin 4.2 g/dL (2.5-4.5) 10/20/20 04:57 Albumin/Globulin Ratio 0.4 Ratio (1.1-2.1) L 10/20/20 04:57 Triglycerides 85 mg/dL (0-150) 10/09/20 04:29 Cholesterol 128 mg/dL (0-200) 10/09/20 04:29 LDL Cholesterol, Calc 98 mg/dL (0-100) 10/09/20 04:29 HDL Cholesterol 13 mg/dL (40-60) L 10/09/20 04:29 Cholesterol/HDL Ratio 9.8 (0.0-5.0) H 10/09/20 04:29 Stl C. diff Tox B Gene Negative (NEGATIVE) 10/17/20 09:16 Stl C. diff [id number] Presumptive negative (NEGATIVE) 10/17/20 09:16 Vancomycin Trough 27.7 ug/mL (15-20) H* 10/14/20 08:33 SARS-CoV-2 (PCR) Negative (NEGATIVE) 10/08/20 18:04 Influenza Type A (PCR) Negative (NEGATIVE) 10/08/20 18:04 Influenza Type B (PCR) Negative (NEGATIVE) 10/08/20 18:04 RSV (PCR) Negative (NEGATIVE) 10/08/20 18:04 Reason For Visit: CELLULITIS LOWER BACK, DECUBITUS ULCER LOWER BACK Discharge Diagnosis All Active Problems (Updated 10/19/20 @ 13:18 by Aminata Griffith) Ascites (Acute) Cirrhosis (Acute) Abdominal distension (Acute) Medical non-compliance (Acute) Hypokalemia (Acute) Gram-positive bacteremia (Acute) Transaminitis (Acute) Dilated cardiomyopathy (Acute) Acute exacerbation of CHF (congestive heart failure) (Acute) Fractured coccyx (Acute) Sepsis (Acute) Poor hygiene (Acute) Sacral decubitus ulcer (Acute) Atrial fibrillation (Acute) Chronic back pain (Acute) Immobility (Acute) Fall (Acute) Protein malnutrition (Acute) Failure to thrive (Acute) Generalized weakness (Acute) Plan of Treatment: Continue with present treatment and follow up plan. Pt is to keep follow up appointment as instructed and take medications as ordered. Discharge Medications Discharge Medications: codeine Allergy (Verified 10/08/20 19:50) orange juice Allergy (Verified 10/17/20 16:49) CONTINUE taking the following medications Eliquis 5 mg PO BID 10/08/20 [History] albuterol sulfate 1 inh INHALATION QID 10/08/20 [History] amiodarone 200 mg PO BID 10/08/20 [History] brimonidine [Alphagan P] 1 drp OPHTHALMIC (EYE) DAILY 10/08/20 [History] New Prescriptions Lactobac #2-Bifido #1-S. therm [VSL#3] 2 cap PO DAILY 30 Days #60 cap 10/22/20 [Rx] famotidine 20 mg PO BID 30 Days #60 tab 10/22/20 [Rx] furosemide 40 mg PO QAM #30 tab 10/22/20 [Rx] ondansetron 4 mg PO Q6H PRN #14 tab 10/22/20 [Rx] Discharge Plan Discharge Plan Patient Disposition: 50 DISCHARGED TO HOSPICE -HOME Condition: Stable Health Concerns: Post Hospitalization: new medications and changes needed to prevent readmission or further decline. Pt educated and given instructions on all concerns. Care Plan Goals: Problem: Impaired Skin Integrity Goal: Improved Skin Integrity Instructions: Follow provided instructions. Follow up with primary physician as directed. Contact primary care physician or report to the closest Emergency Room if condition worsens. Plan of Treatment: Continue with present treatment and follow up plan. Pt is to keep follow up appointment as instructed and take medications as ordered. Prescription drug monitoring program results: PDMP reviewed and no concerns identified Prescriptions: New famotidine 20 mg Tablet 20 mg PO BID 30 Days Qty: 60 RF: 0 VSL#3 112.5 billion cell Capsule 2 cap PO DAILY 30 Days Qty: 60 RF: 0 furosemide 40 mg tablet 40 mg PO QAM Qty: 30 RF: 0 ondansetron 4 mg tablet,disintegrating 4 mg PO Q6H PRN (Reason: nausea and vomiting) Qty: 14 RF: 0 Continued amiodarone 200 mg tablet 200 mg PO BID RF: 0 albuterol sulfate 90 mcg/actuation HFA aerosol inhaler 1 inh INHALATION QID RF: 0 brimonidine [Alphagan P] 0.15 % drops 1 drp OPHTHALMIC (EYE) DAILY RF: 0 Eliquis 5 mg tablet 5 mg PO BID RF: 0 Discontinued prednisone 20 mg tablet 20 mg PO Q6H RF: 0 Follow ups/Referrals Follow ups/Referrals: [facility],None [Primary Care Provider] - 3 days Instructions Instructions: Ascites, Preventing Pressure Injuries, Heart Failure, [id number], End-of-Life Care, Hospice Stand Alone Forms: Excuse From Work or School, Precautions for COVID19, Patient Portal, Social Distancing
== END 2020-10-22 09:35 | disposition hospice, home (50) | DRG 871 ==
LOC: ER 13:50 → MED/SURG 18:45
PROVIDERS: ADMIT Internal Medicine; ATTEND Internal Medicine
DX: I25.10 Atherosclerotic heart disease of native coronary artery without angina pectoris; I50.43 Acute on chronic combined systolic (congestive) and diastolic (congestive) heart failure; E46 Unspecified protein-calorie malnutrition; S32.19XA Other fracture of sacrum, initial encounter for closed fracture; I48.20 Chronic atrial fibrillation, unspecified; B96.1 Klebsiella pneumoniae [K. pneumoniae] as the cause of diseases classified elsewhere; B96.89 Other specified bacterial agents as the cause of diseases classified elsewhere; I87.8 Other specified disorders of veins; M54.89 Other dorsalgia; R94.31 Abnormal electrocardiogram [ECG] [EKG]; L89.152 Pressure ulcer of sacral region, stage 2; R18.8 Other ascites; R53.1 Weakness; K74.60 Unspecified cirrhosis of liver; W18.39XA Other fall on same level, initial encounter; B96.4 Proteus (mirabilis) (morganii) as the cause of diseases classified elsewhere; E87.6 Hypokalemia; Z20.822 Contact with and (suspected) exposure to COVID-19; A41.89 Other specified sepsis; R62.7 Adult failure to thrive; Z91.19 Patient's noncompliance with other medical treatment and regimen; B95.1 Streptococcus, group B, as the cause of diseases classified elsewhere